=== PATIENT | female | born 1955 | race Caucasian/White ===

== ENCOUNTER 2019-01-10 17:11 | Outpatient (REF) | payer BC, SELFPAY ==
[2019-01-10 17:03] LABS: Bilirubin Negative (Negative); Blood Small (Negative); Clarity Cloudy (Clear); Glucose Negative (Negative); Ketones Negative (Negative); Leukocyte Esterase Large (Negative); Nitrite Negative (Negative); Specific Gravity 1.015 (1.005-1.025); Urobilinogen 0.2 EU/dL (Up TO 0.2)
[2019-01-10 17:53] LABS: WBC >50 HPF (0-5)
[2019-01-10 17:54] LABS: Bacteria Few HPF (Negative); C & S Indicated? Yes; Casts Negative LPF (Negative); Crystals Negative HPF (Negative); Epithelial Cells Many HPF (Negative); Mucus Negative (Negative); Other Cells Few Renal (Negative)
== END 2019-01-10 17:31 ==
LOC: LBN 17:11
PROVIDERS: PCP Family Medicine; Visit Provider Family Medicine
DX: N76.0 Acute vaginitis (principal); R35.0 Frequency of micturition
CPT/HCPCS: 87077; 81003; 81015; 87086; 87186; 87480; 87510; 87660

== ENCOUNTER 2020-04-17 09:41 | Outpatient (CLI) | payer BC, SELFPAY ==
[2020-04-20 14:06] LABS: Patient Race White; SARS-CoV-2 RNA Undetected (Undetected); SARS-CoV-2 Specimen Source Nasal
== END 2020-04-17 10:01 ==
PROVIDERS: PCP Family Medicine; Visit Provider Family Medicine
DX: Z11.59 Encounter for screening for other viral diseases (principal)
CPT/HCPCS: U0003

== ENCOUNTER 2020-05-10 02:44 | Outpatient (CLI) | payer BC, SELFPAY ==
[2020-05-13 12:18] LABS: COVID-19 RT-PCR Result NEGATIVE (Negative)
== END 2020-05-10 03:04 ==
PROVIDERS: PCP Family Medicine; Visit Provider Family Medicine
DX: Z11.59 Encounter for screening for other viral diseases (principal)
CPT/HCPCS: U0003

== ENCOUNTER 2020-07-05 08:29 | Outpatient (CLI) | payer BC, SELFPAY ==
[2020-07-06 11:44] LABS: COVID-19 RT-PCR UVMMC Result Negative (Negative)
== END 2020-07-05 08:30 | disposition home or self-care (01) ==
LOC: LBO 08:29
PROVIDERS: PCP Family Medicine; Visit Provider Family Medicine
DX: Z20.822 Contact with and (suspected) exposure to COVID-19 (principal)
CPT/HCPCS: U0003

== ENCOUNTER 2022-04-21 04:05 | Outpatient (CLI) | payer MEDICARE, BC, SELFPAY ==
[2022-04-21 12:17] LABS: HCT 43.1 % (36.0-46.0); HGB 14.6 g/dL (11.2-15.7); MCH 31.3 pg (27.0-33.0); MCHC 33.9 % (32.0-36.0); MCV 93 fL (80-95); MPV 11.2 fL (8.0-11.0); Platelet Count 249 10^3/uL (130-400); RBC 4.66 10^6/uL (3.93-5.22); RDW 12.6 % (11.7-14.6); WBC 5.02 10^3/uL (4.4-10.8)
[2022-04-21 12:46] LABS: Iron 122 ug/dL (50-170)
[2022-04-21 13:23] LABS: ALT 21 U/L (14-59); AST 18 U/L (15-37); Albumin 3.8 g/dL (3.4-5.0); Alkaline Phosphatase 63 U/L (46-116); Anion Gap 6.2 mmol/L (3-11); BUN 17 mg/dL (7-18); Bilirubin, Total 0.8 mg/dL (0.2-1.0); CO2 30.8 mmol/L (21.0-32.0); CREATININE 0.7 mg/dL (0.55-1.02); Calculated LDL 97 mg/dL (<100); Chloride 101 mmol/L (98-107); Cholesterol 211 mg/dL (<200); Estimated GFR 95.92 (mL/min/1.73m2); Ferritin 88 ng/mL (8-252); Glucose 85 mg/dL (74-106); HDL Cholesterol 106 mg/dL (40-60); Potassium 3.8 mmol/L (3.5-5.1); Sodium 138 mmol/L (136-145); TSH (W/Ref FT4) 0.66 uIU/mL (0.36-3.74); Total Protein 7.5 g/dL (6.4-8.2); Triglyceride 42 mg/dL (<150)
== END 2022-04-21 04:06 | disposition home or self-care (01) ==
LOC: LOS 04:05
PROVIDERS: PCP Family Medicine; Visit Provider Family Medicine
DX: Z00.00 Encounter for general adult medical examination without abnormal findings (principal); D64.9 Anemia, unspecified; F41.8 Other specified anxiety disorders; Z79.899 Other long term (current) drug therapy
CPT/HCPCS: 36415; 80053; 80061; 85027; 82728; 83540; 84443

== ENCOUNTER 2022-06-30 02:12 | Outpatient (CLI) | payer MEDICARE, BC, SELFPAY ==
--- NOTE | 2022-06-30 06:45 | DI.DEXA_ITS ---
Exam(s) XR DEXA BONE DENSITY W/WO MARIA ISABEL EXAM: XR DEXA BONE DENSITY W/WO MARIA ISABEL CLINICAL HISTORY: osteoporosis, m81.0 TECHNIQUE: Routine DEXA evaluation of the lumbar spine, hip, or forearm. COMPARISON: No exams were available for comparison FINDINGS: Performed on a Hologic unit. Lateral image: No compression fracture evident. Lumbar Spine total T-score: -0.3 Hip total T-score:-0.7 Independent reading at the level of the femoral neck yields T-score of -1.3 Forearm total T-score: -1.3 IMPRESSION: Bone mineral density measures in the osteopenia range. Fracture risk is moderate. Note: Any spine fracture indicates 5x risk for subsequent spine fracture and 2x risk for subsequent h ip fracture. World Health Organization criteria for BMD interpretation classify patients: Normal...... T- Score at or above -1.0 Osteopenic... T- Score between -1.0 and -2.5 Osteoporosis... T-Score at or below -2.5
== END 2022-06-30 02:32 ==
LOC: DI 02:12
PROVIDERS: PCP Family Medicine; Visit Provider Family Medicine
DX: M85.88 Other specified disorders of bone density and structure, other site (principal)
CPT/HCPCS: 77080

== ENCOUNTER 2022-12-30 14:17 | Outpatient (REF) | payer MEDICARE, BC, SELFPAY ==
[2022-12-30 14:16] LABS: Clarity Sl Cloudy (Clear); Glucose Color Interference mg/dL (Negative); Ketones Color Interference mg/dL (Negative); Leukocyte Esterase Color Interference (Negative); Nitrite Color Interference (Negative); Specific Gravity 1.015 (1.005-1.025); Urobilinogen Color Interference mg/dL (Up to 0.2)
[2022-12-30 14:17] LABS: Bacteria Negative HPF (Negative); Bilirubin Color Interference (Negative); Blood Color Interference (Negative); C & S Indicated? No; Casts 0-2 Hyaline LPF (Negative); Crystals Negative HPF (Negative); Epithelial Cells Rare HPF (Negative); Mucus Trace (Negative); RBC 20-50 HPF (0-2); WBC 0-2 HPF (0-5)
== END 2022-12-30 14:18 | disposition home or self-care (01) ==
LOC: LBN 14:17
PROVIDERS: PCP Family Medicine; Visit Provider Family Medicine
DX: R30.0 Dysuria (principal); R31.9 Hematuria, unspecified
CPT/HCPCS: 81003; 81015

== ENCOUNTER 2023-08-04 03:53 | Outpatient (CLI) | payer MEDICARE, BC, SELFPAY ==
[2023-08-04 12:10] LABS: HCT 39.8 % (36.0-46.0); HGB 13.4 g/dL (11.2-15.7); MCH 31.1 pg (27.0-33.0); MCHC 33.7 % (32.0-36.0); MCV 92 fL (80-95); Platelet Count 247 10^3/uL (130-400); RBC 4.31 10^6/uL (3.93-5.22); RDW 13.1 % (11.7-14.6); RDW-SD 44.9 fL; WBC 5.68 10^3/uL (4.4-10.8)
[2023-08-04 12:49] LABS: ALT 20 U/L (14-59); AST 20 U/L (15-37); Albumin 3.6 g/dL (3.4-5.0); Alkaline Phosphatase 53 U/L (46-116); Anion Gap 4.6 mmol/L (3-11); BUN 21 mg/dL (7-18); Bilirubin, Total 0.9 mg/dL (0.2-1.0); CO2 32.4 mmol/L (21.0-32.0); CREATININE 0.8 mg/dL (0.55-1.02); Calcium 8.7 mg/dL (8.5-10.1); Calculated LDL 91 mg/dL (<100); Chloride 104 mmol/L (98-107); Cholesterol 197 mg/dL (<200); Estimated GFR 81.21 (mL/min/1.73m2); Glucose 89 mg/dL (74-106); HDL Cholesterol 100 mg/dL (40-60); Potassium 3.9 mmol/L (3.5-5.1); Sodium 141 mmol/L (136-145); TSH (W/Ref FT4) 0.62 uIU/mL (0.36-3.74); Total Protein 6.9 g/dL (6.4-8.2); Triglyceride 31 mg/dL (<150)
== END 2023-08-04 03:54 | disposition home or self-care (01) ==
LOC: LOS 03:53
PROVIDERS: PCP Family Medicine; Visit Provider Family Medicine
DX: E78.5 Hyperlipidemia, unspecified (principal); E03.9 Hypothyroidism, unspecified; I10 Essential (primary) hypertension; R53.83 Other fatigue
CPT/HCPCS: 36415; 80053; 80061; 85027; 84443

== ENCOUNTER 2023-09-20 16:03 | Outpatient (REF) | payer MEDICARE, BC, SELFPAY ==
[2023-09-20 10:44] LABS: Bilirubin Negative (Negative); Blood Negative (Negative); Clarity Clear (Clear); Glucose Negative (Negative); Ketones Negative (Negative); Leukocyte Esterase Negative (Negative); Nitrite Negative (Negative); Specific Gravity 1.015 (1.005-1.025); Urobilinogen 0.2 mg/dL (Up to 0.2); pH 8.5 (5-8)
== END 2023-09-20 16:04 | disposition home or self-care (01) ==
LOC: LBN 16:03
PROVIDERS: PCP Family Medicine; Visit Provider Family Medicine
DX: R31.9 Hematuria, unspecified (principal)
CPT/HCPCS: 81003

== ENCOUNTER 2024-05-19 00:33 | Outpatient (CLI) | payer MEDICARE, BC, SELFPAY ==
--- OUTSIDE RECORDS SUMMARY | 2024-05-19 00:34 | XMS_ITS | Encounter Summary ---
Author Organization [facility] [place] [address] Care Team Providers Care Slasher Hand Name Role Phone Gwen Stanford MD Primary Care Provider [phone] Encounter Details Date Type Department Care Team (Latest Contact Info) Description 04/13/2024 Travel Social History Tobacco Use Types Packs/Day Years Used Date Smoking Tobacco: Former Cigarettes 1 06/24/1975 - 04/23/1996 Smokeless Tobacco: Never Alcohol Use Standard Drinks/Week Comments Yes 7 (1 standard drink = 0.6 oz pur e alcohol) Sex and Gender Information Value Date Recorded Sex Assigned at Not on file Gender Identity Not on file Sexual Orientation Not on file documented as of this encounter Plan of Treatment Upcoming Encounters Date Type Department Care Team (Late st Contact Info) Description 06/29/2024 1:40 PM EST Appointment Mammography/[place] [address] Gwen Stanford MD [address] [place] [address] [address] [facility] 1 [place], [place] [address] 09/11/2024 10:00 AM EDT Office Visit Dermatology at [facility] [address] [place] [address] Su Rosas MD [facility] DR ANTONINA JO[place] [address] documented as of this encounter Visit Diagnoses Not on filedocumented in this encounter Care Teams Slasher Hand Relationship Specialty Start Date End Date Gwen Stanford MD [address] [place] [address] PCP - General 04/15/10 documented as of this encounter
--- OUTSIDE RECORDS SUMMARY | 2024-05-19 00:34 | XMS_ITS | Encounter Summary ---
Author Organization [facility] Address [facility] [place] [address] Care Team Providers Care Cashier Payments Received Name Role Phone Gwen Stanofrd MD Primary Care Provider [phone] Encounter Details Date Type Department Care Team (Late st Contact Info) Description 04/13/2024 9:30 AM EST Office Visit Dermatology at [facility] [address] [place] [address] Su Rosas MD [facility] DR ANTONINA [place] [address] Encounter for cosmetic procedure Social History Tobacco Use Types Packs/Day Years [...] on file documented as of this encounter Progress Notes * Su Rosas MD - 04/13/2024 9:30 AM EST Images from the original note were not included. Department of Dermatology Cosmetic Dermatology Provider: Su Rosas MD Resident MD or Student: N/A News Producer: Nichole Gould CMA COSMETIC TREATMENT VISIT: Patient's preferred name: Lourdes Preferred contact method: [x]Phone [x]myD-H []Letter Detailed phone message OK?: Yes Medical History: HSV? : N , lactating or trying to conceive?: N Social History: Occupation: Hobbies: Other: HPI Lourdes Castro is a 69 y.o. female. Here for Vbeam Questions or concerns for today? N Medications: Reviewed in eD-H Allergies: Reviewed in eD-H TREATMENT MAP(S): * DIAGNOSIS/ASSESSMENT: # Chemoprevention/correction: Emphasized value of retinoid-based skin care system to amplify and maintain benefits of any anti aging plan/procedures. -special considerations: [employer] Azelaic acid, metronidazole and ivermectin prescribed by Suzanne -retinoid: TBD date started: -ZO skincare regimen: regimen or products: reviewed by: date: -instructions in AVS dated, 08/17/2022 by AP -discussed importance of meticulous sun protection #. Neurotoxin/Neuromodulator: - See treatment map above. - Patient's primary area of concern: Glabella - Special considerations for this pt: does not want to transform her look - will stick with a targeted treatment - Quote for neurotoxin: plan for Xeomin - Units Discussed?: Xeomin: 40 units for $550.00, 50 units for $600.00, 60 units for $750.00 # Facial Volume Loss: - See procedure map - Pt's primary area of concern: mid facial volume loss - Other areas of concern: discussed treating temples - Special considerations: does not want to transform her look, wants to have a subtle treatment - Future filler planned?: Volluma 1cc x 2 to temples Quote for filler plans: $1,600 - Future filler planned?: brief discussion of filler to mid facial , product not specified Quote for filler plans: $not quoted # Skin laxity - body / arms - Patient taking estrogen - Discussed inconclusive data on collagen supplements - Brief discussion of bio-stimulation filler, no quotes given - Recommend Amlactin Rapid Relief or CeraVe SA lotion # Vbeam / IPL treatments for photodamage located on face - Number of treatments recommeded: 3+ maintenance - Special considerations for this pt: has rosacea, managed by general derm - Area of main concern: cheeks - HSV prophylaxis needed?: no If yes, does pt have rx?: no date verified: 12/31/2021 - tiwari quoted: $450 per treatment of the full face - See laser log for treatment dates and details -Additional notes: Plan to start with Vbeam, then will alternate with IPL when sun exposure is minimal # Vbeam treatments for spider veins located on thighs - Number of treatments recommeded: 3+ - Special considerations for this pt: discussed pt will have significant bruising, plan for fall / winter time when able to hide bruising. - Area of main concern: left thigh - HSV prophylaxis needed?: no If yes, does pt have rx?: no date verified: 12/31/2021 - tiwari quoted: $250 per treatment 15 min - See laser log for treatment dates and details -Additional notes: See sclero assessment/plan # Unwanted leg veins: Venulectasias, reticlar veins and spider veins located left thigh Main area of concern: left thigh - See Sclerotherapy Treatment Log - Special considerations for this patient: Discussed combination treatment with Vbeam - Consent signed?: (date) - Tiwari quoted: $250 for each 15 min procedure. 2-3+ sessions recommended, each spaced 12 weeks apart - Sclerotherapy FAQs and Before and After instructions given - Reviewed the risks, alternatives and nature of the procedure. This is an elective, cosmetic procedure. Importance and benefit of compression stockings was emphasized. # Chemical Peels for rosacea located on face - Appropriate peels for this patient include: MA Peel - Number of treatments recommeded: 1 peel every other month - Special considerations for this pt: - Area of main concern: cheeks - Before and after instructions given (in AVS): Yes (name of handout) - HSV prophylaxis needed?: N If yes, does pt have rx?: N date verified: 11/05/2022 - tiwari quoted: $150 - See peel log for treatment dates and details -Additional notes: # Photos - see media 12/31/2021 for pics taken pre vbeam legs, vbeam face, xeomin - 08/17/2022 for baseline photos prior to Vbeam # Photography: taken post 2 treatments of vBeam - Date: 11/05/2022 View: whole face Initials: HL & RL PROCEDURE/TREATMENT LOG(S): Date: 08/17/2022 Laser: Vbeam Area: full face Spot: 10mm Energy(J): 8.50 Pulse Duration: 10ms Pulse #: 408 Paid: $350 deduct consultation Tx By:AP Notes: first treatment, patient seen in conjunction with provider, Su Rosas MD. Provider determined treatment settings. Date: 09/21/2022 Laser: VBeam Area: face Spot: 10mm Energy(J): 8.50 Pulse Duration: 10ms Pulse #: ~350 Paid: $350 Tx By: AP Notes: Provider, Su Rosas MD, authorized treatment settings. Indirect, onsite supervision of procedure. Date: 11/05/2022 Laser: Vbeam Area: full face Spot: 10mm Energy(J): 8.50 Pulse Duration: 10ms Pulse #: 257 Paid: $350 Tx By:RL Notes: Patient is aware to plan for a continuation of MA peels Date: 10/13/2023 Laser: VBeam Area: full face Spot: 10mm Energy(J): 8.5 Pulse Duration: 10ms Pulse #: 369 Paid: $450 Tx By:Su Rosas MD Laser Log: Laser Area Spot (mm) Energy (J) Pulse Duration or Density (spots/cm2) # of Pulses Tx By Paid Notes 04/13/24 Vbeam Full face 10mm 85 10ms RL $450 Tolerated well COSMETIC COST TODAY: $450 Vbeam full face Return To Clinic: August 2024 Vbeam full face $450 []Note routed to executive secretary social welfare []Recall placed in scheduling system [x]Appointment scheduled at checkout Treatment delivered by Su Rosas MD I, Nichole Gould CMA has performed the documentation for this encounter in the presence of and acting as a scribe for Su Rosas MD. I performed the above scribed service and agree with the accuracy of the documentation in this encounter, Su Rosas MD . Su Rosas MD Department of Dermatology documented in this encounter Plan of Treatment Upcoming Encounters Date Type Department Care Team (Late st Contact Info) Description 06/29/2024 1:40 PM EST Appointment Mammography/[place] [address] Gwen Stanford MD [address] [place] [address] 09/11/2024 10:00 AM EDT Office Visit Dermatology at [facility] [address] [place] [phone] Su Rosas MD [facility] DR ANTONINA [place] [address] documented as of this encounter Visit Diagnoses Diagnosis Encounter for cosmetic procedure documented in this encounter Care Teams Cashier Payments Received Relationship Specialty Start Date End Date Gwen Stanford MD [address] [place] [address] PCP - General 04/15/10 documented as of this encounter
--- OUTSIDE RECORDS SUMMARY | 2024-05-19 00:34 | XMS_ITS | Clinical Summary ---
Author Organization [facility] Address [facility] [place] [address] Care Team Providers Care Card Assembler Name Role Phone Gwen Stanford MD Primary Care Provider [phone] Allergies Active Allergy Reactions Criticality Noted Date Comments Codeine Anxiety High 10/19/2012 Penicillins Anaphylaxis High Prochlorperazine Other (See Comments) 7 [place] sedated Medications Medication Sig Dispensed Refills Start Date End Date Status clonAZEpam (KLONOPIN) 1 mg tablet 1MG = 1 Tablet(s), PO, Once daily,PRN 01/12/2006 Active acetaminophen (TYLENOL) 325 mg Tablet Take 2 tablets by mouth every 6 hours. 30 tablet 1 05/06/2016 Active Additional Information Patient taking differently:650 mg OralEVERY 6 HOURS PRN, Reported on 08/18/2022 estradioL (Estrace) 1 mg tablet Take 2 mg by mouth daily. Active ibuprofen (Advil) 200 mg tablet Take 600 mg by mouth every 8 hours as needed for Pain. Active tretinoin (Retin-A) 0.05 % CreamIndications:So lar aging of skin Apply topically nightly. 45 g 11 09/21/2022 Active BIOTIN ORAL Take by mouth. Active Active Problems Problem Noted Date Diagnosed Date Post-operative state 05/27/2016 Former smoker 04/23/2016 Postmenopausal HRT (hormone replacement therapy) 04/23/2016 Trigger thumb of left hand 10/19/2012 Tendinitis Resolved Problems Problem Noted Date Diagnosed Date Resolved Date Fibroid uterus 05/05/2016 05/28/2016 Abnormal uterine bleeding (AUB) 04/23/2016 05/28/2016 Uterine mass 04/23/2016 05/28/2016 Encounters Date Type Department Care Team Description 04/13/2024 9:30 AM EST Office Visit Dermatology at [address] [place] [address] Su Rosas MD Encounter for cosmetic procedure 04/13/2024 Travel from Last 3 Months Immunizations Name Administration Dates Next Due Td Adult (not absorbed) 09/18/2004 Family History Medical History Relation Comments Breast Cancer Neg Hx Social History Tobacco Use Types Packs/Day Years Used Date Smoking Tobacco: Former Cigarettes 1 06/24/1975 - 04/23/1996 Smokeless Tobacco: Never Tobacco Cessation:Counseling Given: Not Answered Alcohol Use Standard Drinks/Week Comments Yes 7 (1 standard drink = 0.6 oz pur e alcohol) Sex and Gender Information Value Date Recorded Sex Assigned at Not on file Gender Identity Not on file Sexual Orientation Not on file Last Filed Vital Signs Vital Sign Reading Time Taken Comments Blood Pressure 118/61 08/20/2022 8:34 AM EDT Pulse 65 08/20/2022 8:34 AM EDT Temperature 35.6 ??C (96 ??F) 08/20/2022 8:34 AM EDT Respiratory Rate 16 08/18/2022 2:36 PM EDT Oxygen Saturation 100% 08/20/2022 8:34 AM EDT Inhaled Oxygen Concentration - - Weight 58.1 kg (128 lb) 08/20/2022 8:34 AM EDT Height 153.7 cm (5' 0.5) 08/18/2022 2:36 PM EDT Body Mass Index 24.59 08/18/2022 2:36 PM EDT Plan of Treatment Upcoming Encounters Date Type Department Care Team (Late st Contact Info) Description 06/29/2024 1:40 PM EST Appointment Mammography/[place] [address] Gwen Stanford MD [facility] [address] [place] [address] 09/11/2024 10:00 AM EDT Office Visit Dermatology at [address] [place] [address] Su Rosas MD [facility] [address]TON[place] [address] Health Maintenance Due Date Last Done Comments CT Colonography 1957 FIT DNA 1957 FIT 1957 Sigmoidoscopy 1955 Hepatitis C Screening 1975 Breast Cancer Share Decision Needed 1997 Tetanus/Diphtheria/Pertussis Vaccines (1 - Tdap) 09/19/2004 09/18/2004 Pneumoccocal Vaccine: 65+ (1 of 1 - PCV) 2007 Zoster vaccine (1 of 2) 2007 Advance Directive 02/07/2012 Bone Density Scan 2022 Colonoscopy 12/20/2023 12/19/2013, 12/19/2013 Colorectal Cancer Screening 12/20/2023 Sigmoidoscopy (10 year) with FIT yearly 12/20/2023 12/19/2013, 12/19/2013 Covid-19 Vaccine (1 - 2023-2 5 season) 2024 Influenza (Flu) vaccine (1 o f 1 - Influenza standard series) 01/23/2024 Breast Cancer screening 03/03/2025 03/03/20 23, 12/31/2021, 12/03/2020, Additional history exists Procedures Procedure Name Priority Date/Time Associated Diagnosis Comments MAMMO SCREENING CAD AND CEDRICK BILATERAL Routine 03/03/2023 10:21 AM EDT Encounter for screening mammogram for breast cancer COLONOSCOPY Routine 12/19/2013 9:39 AM EDT from Last 3 Months or Most Recently Relevant to Health Maintenance Results * Mammo Screening Cad and Cedrick Bilateral (03/03/2023 10:21 AM EDT) Anatomical Region Laterality Modality Breast Bilateral Mammography Impressions 03/03/2023 1:06 PM EDT No mammographic evidence of malignancy, Routine annual screening mammography is recommended. FINAL ASSESSMENT: BI-RADS Category 2: Benign Findings * ??Regular screening mammograms starting at age 40 reduces the risk of from breast cancer. * ??Yearly screening provides the most benefit. Women should discuss with their provider their preferred breast cancer screening schedule. * ??Women should report any breast changes to a health care provider right away. * ??Some women, because of their family history, a genetic tendency, or other factors, should be screened with annual breast MRI as well as with mammograms. Thank you for letting us participate in the care of this patient. ??If you are a health care provider and have any questions regarding this report, please contact the number below. ??For patients who have questions please contact the health youth care worker that requested your imaging first. ? Narrative 03/03/2023 1:06 PM EDT EXAMINATION: MAMMO SCREENING CAD AND CEDRICK BILATERAL REASON FOR EXAM: Screening TECHNIQUE: CC and MLO views were obtained of BOTH breasts. 2D and 3D tomosynthesis images were obtained. Computer aided detection was used. COMPARISON: Comparison was made to the prior relevant examinations. BREAST DENSITY: The breast tissue is extremely dense, which lowers the sensitivity of mammography. FINDINGS: Stable bilateral calcifications. There are no suspicious microcalcifications, masses, or areas of distortion. Stable appearance. Gwen Stanford MD IMG MAMMO ORDERABLES * COLONOSCOPY (12/19/2013 9:39 AM EDT) [facility] COLONOSCOPY [facility] Endoscopy Patient Name: Lourdes Castro ? Procedure Date: 12/19/2013 9:39 AM ? Date of : 1955 ? Age: 58 ? Order #: [id number] ? Procedure: ? Colonoscopy Indications: ? Screening for colorectal malignant ? neoplasm Providers: ? Artur Treviño MD, Janette Ortiz ? MARY Carrasco, Debora Dietrich, ? Ship Laborer Referring MD: ?Gwen Stanford MD Medicines: ? Midazolam 4.5 mg IV, Fentanyl 200 ? micrograms IV Complications: ? No immediate complications. Procedure: ? Pre-Anesthesia Assessment: ? - ASA Grade Assessment: I - A normal, ? healthy patient. ? The procedure, indications, benefits, ? risks and alternatives were explained ? to the patient. Specifically ? discussed were potential ? complications including, but not ? limited to, bleeding, perforation, ? infection, missing a cancer, and ? adverse medication reactions. The ? patient was placed in the left ? lateral decubitus position, and a ? digital rectal exam was performed. ? The Colonoscope was inserted in the ? anus and under direct visualization, ? advanced to the terminal ileum. ? Careful inspection was made as the ? colonoscope was withdrawn. The ? colonoscopy was performed without ? difficulty. The patient tolerated the ? procedure well. The quality of the ? bowel preparation was excellent. ? Scope withdrawal time was 14 minutes. ? Findings: ? A few small and large-mouthed diverticula were found ? in the sigmoid colon and in the descending colon. ? The terminal ileum appeared normal. ? A sessile polyp was found in the recto-sigmoid colon. ? The polyp was 2 mm in size. The polyp was removed ? with a cold biopsy forceps. Resection and retrieval ? were complete. ? Internal hemorrhoids were found during retroflexion ? and were small. ? Impression: ?- Diverticulosis in the sigmoid colon ? and in the descending colon. ? - The examined portion of the ileum ? was normal. ? - One 2 mm polyp at the recto-sigmoid ? colon. Resected and retrieved. ? - Internal hemorrhoids. Recommendation: ?- Await pathology results. ? _ Artur Treviño MD 12/19/2013 10:40 AM This report has been signed electronically. Number of Addenda: 0 Note Initiated On: 12/19/2013 9:39 AM PROVATION 12/19/2013 9:39 AM EDT Gwen Stanford MD GENERAL SURGICAL ORD ERABLES PROVATION from Last 3 Months or Most Recently Relevant to Health Maintenance Advance Directives * Full Code (Latest Code Status on File) Date Activated Date Inactivated Comments 05/05/2016 2:34 PM 05/06/2016 1:26 PM Question Answer Comments Does patient have capacity to make decision: Yes * Full Code Date Activated Date Inactivated Comments 05/05/2016 10:49 AM 05/05/2016 2:34 PM Question Answer Comments Does patient have capacity to make decision: Yes Care Teams Card Assembler Relationship Specialty Start Date End Date Gwen Stanford MD [address] [place] [address] [address] [facility] 1 [place] [address] PCP - General 04/15/10
--- OUTSIDE RECORDS SUMMARY | 2024-05-19 00:35 | XMS_ITS | Encounter Summary ---
Author Organization [facility] [place] [address] Care Team Providers Care Cold Working Inspector Name Role Phone Gwen Stanford MD Primary Care Provider [phone] Encounter Details Date Type Department Care Team (Latest Contact Info) Description 09/21/2022 Travel Social History Tobacco Use Types Packs/Day [...] 06/29/2024 1:40 PM EST Appointment Mammography[place] [address] Gwen Stanford MD [address] [place] [address] [address] [facility] 1 [place], [place] [address] 09/11/2024 10:00 AM EDT Office Visit Dermatology at [facility] [address] [place] [phone] Su Rosas MD [facility] [address]TON[place] [address] documented as of this encounter Visit Diagnoses Not on filedocumented in this encounter Care Teams Cold Working Inspector Relationship Specialty Start Date End Date Gwen Stanford MD [address] [place] [address] PCP - General 04/15/10 documented as of this encounter
--- OUTSIDE RECORDS SUMMARY | 2024-05-19 00:35 | XMS_ITS | Encounter Summary ---
Author Organization [facility] [place] [address] Care Team Providers Care Alternative Education Teacher Name Role Phone Gwen Stanford MD Primary Care Provider [phone] Encounter Details Date Type Department Care Team (Latest Contact Info) Description 08/17/2022 Travel Social History Tobacco Use Types Packs/Day [...] 06/29/2024 1:40 PM EST Appointment Mammography/[place] [address] Gwen Stanford MD [address] [place] [address] [address] [facility] 1 [place], [place] [address] 09/11/2024 10:00 AM EDT Office Visit Dermatology at [facility] [address] [place] [address] Su Rosas MD [facility] DR ANTONINA JOAQU[place] [address] documented as of this encounter Visit Diagnoses Not on filedocumented in this encounter Care Teams Alternative Education Teacher Relationship Specialty Start Date End Date Gwen Stanford MD [address] [place] [address] PCP - General 04/15/10 documented as of this encounter
--- OUTSIDE RECORDS SUMMARY | 2024-05-19 00:35 | XMS_ITS | Encounter Summary ---
Author Organization [facility] [place] [address] Care Team Providers Care Hydraulic Technician Name Role Phone Gwen Stanford MD Primary Care Provider [phone] Encounter Details Date Type Department Care Team (Latest Contact Info) Description 08/20/2022 Travel Social History Tobacco Use Types Packs/Day [...] 06/29/2024 1:40 PM EST Appointment Mammography[place] [address] Gwen Stanford MD [address] [place] [address] [address] [facility] 1 [place], [place] [address] 09/11/2024 10:00 AM EDT Office Visit Dermatology at [facility] [address] [place] [phone] Su Rosas MD [facility] [address] [place]TON[place] [address] documented as of this encounter Visit Diagnoses Not on filedocumented in this encounter Care Teams Hydraulic Technician Relationship Specialty Start Date End Date Gwen Stanford MD [address] [place] [address] PCP - General 04/15/10 documented as of this encounter
--- OUTSIDE RECORDS SUMMARY | 2024-05-19 00:35 | XMS_ITS | Encounter Summary ---
[place] [address] Care Team Providers Care Environmental Change Analyst Name Role Phone Gwen Stanford MD Primary Care Provider Reason for Referral * - Closed Specialty Diagnoses / Procedures Referred By Letitia gtz Referred To Contact Diagnoses Encounter for screening mammogram for breast cancer Procedures Mammo Screening Cad and Cedrick Bilateral Gwen Stanford MD [facility] [address] [place] [address] [place] [place] [address] Referral ID Status Reason Start Date Expiration Date Visits Re quested Visits Authorized [id number] Closed 10/16/2020 10/16/2021 1 1 Reason for Visit * - Closed Specialty Diagnoses / Procedures Referred By Letitia gtz Referred To Contact Diagnoses Encounter for screening mammogram for breast cancer Procedures Mammo Screening Cad and Cedrick Bilateral Gwen Stanford MD [address] [place] [address] [facility] [place] [address] Referral ID Status Reason Start Date Expiration Date Visits Re quested Visits Authorized [id number] Closed 10/16/2020 10/16/2021 1 1 Encounter Details Date Type Department Care Team (Late st Contact Info) Description 12/03/2020 10:27 AM EDT - 12/03/2020 11:59 PM EDT Hospital Encounter Mammography/[place] [address] Gwen Stanford MD [address] [place] [address] Encounter for screening mammogram for breast cancer Discharge Disposition: Home Social History Tobacco Use Types Packs/Day Years [...] on file documented as of this encounter Medications at Time of Discharge Medication Sig Dispensed Refills Start Date End Date acetaminophen (TYLENOL) 325 mg Tablet Take 2 tablets by mouth every 6 hours. 30 tablet 1 05/06/2016 clonAZEpam (KLONOPIN) 1 mg tablet 1MG = 1 Tablet(s), PO, Once daily,PRN 01/12/2006 senna-docusate (PERICOLACE) 8.6-50 mg Tablet Take 2 tablets by mouth 2 times daily. 60 tablet 11 05/06/2016 08/18/2022 glucosamine sulfate 500 mg Tablet Take by mouth. 08/18/2022 calcium carbonate 648 mg calcium Tablet Take 600 mg by mouth 3 times daily (with meals). 08/18/2022 cholecalciferol, Vitamin D3, (CHOLECALCIFEROL, VITAMIN D3,) 2,000 unit Capsule Take by mouth. 08/18/2022 biotin 300 mcg Tablet Take 500 mcg by mouth. 08/18/2022 documented as of this encounter Plan of Treatment Upcoming Encounters Date Type Department Care Team (Late st Contact Info) Description 06/29/2024 1:40 PM EST Appointment Mammography/[place] [address] Gwen Stanford MD [address] [place] [address] 09/11/2024 10:00 AM EDT Office Visit Dermatology at [facility] [address] [place] [phone] Su Rosas MD [facility] DR ANTONINA [place] [address] documented as of this encounter Procedures Procedure Name Priority Date/Time Associated Diagnosis Comments MAMMO SCREENING CAD AND CEDRICK BILATERAL Routine 12/03/2020 10:44 AM EDT Encounter for screening mammogram for breast cancer documented in this encounter Results * Mammo Screening Cad and Cedrick Bilateral (12/03/2020 10:44 AM EDT) Anatomical Region Laterality Modality Breast Bilateral Mammography Narrative 12/03/2020 11:52 AM EDT BILATERAL MAMMOGRAPHY REASON FOR EXAM: Screening TECHNIQUE: CC and MLO views were obtained of each breast using standard 2-D mammography as well as 3-D tomosynthesis. Computer aided detection was used. This is compared with prior images. FINDINGS: ??The breasts are heterogeneously dense, which may obscure small masses. There are no suspicious microcalcifications, masses, or areas of distortion. The pattern is stable. CONCLUSION: No mammographic evidence of malignancy. RECOMMENDATION: Regular screening mammograms starting between age 40 and 50 reduces the risk of from breast cancer. All screening tests have both risks and benefits. These risks and benefits should be assessed for each individual patient through discussion with their provider to determine their preferred breast cancer screening schedule. Women should report any breast changes to a health care provider right away. Some women, because of their family history, a genetic tendency, or other factors, should be screened with annual breast MRI as well as with mammograms. (The number of women who fall into this category is very small). Patients and health care providers should discuss each patient? s history to decide if earlier screening and/or breast MRI are appropriate. Screening should continue as long as a woman is in good health and is expected to live 10 years or longer. Screening mammography may not detect 10-15% of breast cancers. A result letter has been sent to this patient by the [facility]. BIRADS CATEGORY 1: NEGATIVE Electronically signed by: ROXANNE NELSON MD Gwen Stanford MD IMG MAMMO ORDERABLES documented in this encounter Visit Diagnoses Diagnosis Encounter for screening mammogram for breast cancer documented in this encounter Care Teams Environmental Change Analyst Relationship Specialty Start Date End Date Gwen Stanford MD [address] [place] [address] PCP - General 04/15/10 documented as of this encounter
--- OUTSIDE RECORDS SUMMARY | 2024-05-19 00:35 | XMS_ITS | Encounter Summary ---
[place] [address] Care Team Providers Care Plywood Layup Line Core Layer Name Role Phone Gwen Stanford MD Primary Care Provider Encounter Details Date Type Department Care Team (Late st Contact Info) Description 03/03/2023 9:55 AM EDT - 03/03/2023 11:59 PM EDT Hospital Encounter Mammography/[place] [phone] Gwen Stanford MD [address] [place], [place] [address] Encounter for screening mammogram for breast cancer [...] Sig Dispensed Refills Start Date End Date tretinoin (Retin-A) 0.05 % CreamIndications:Solar aging of skin Apply topically nightly. 45 g 11 09/21/2022 estradioL (Estrace) 1 mg tablet Take 2 mg by mouth daily. ibuprofen (Advil) 200 mg tablet Take 600 mg by mouth every 8 hours as needed for Pain. acetaminophen (TYLENOL) 325 mg Tablet Take 2 tablets by mouth every 6 hours. 30 tablet 1 05/06/2016 clonAZEpam (KLONOPIN) 1 mg tablet 1MG = 1 Tablet(s), PO, Once daily,PRN 01/12/2006 documented as of this encounter Plan of Treatment Upcoming Encounters Date Type Department Care Team (Late st Contact Info) Description 06/29/2024 1:40 PM EST Appointment Mammography/[place] [address] Gwen Stanford MD [address] [place] [address] 09/11/2024 10:00 AM EDT Office Visit Dermatology at [facility] [address] [place] [address] Su Rosas MD [facility] DR ANTONINA [place] [address] documented as of this encounter Procedures Procedure [...] who have questions please contact the health congregational care pastor that requested your imaging first. ? Narrative [...] appearance. Gwen Stanford MD IMG MAMMO ORDERABLES documented in this encounter Visit Diagnoses Diagnosis Encounter for screening mammogram for breast cancer documented in this encounter Care Teams Plywood Layup Line Core Layer Relationship Specialty Start Date End Date Gwen Stanford MD [address] [place] [address] PCP - General 04/15/10 documented as of this encounter
--- OUTSIDE RECORDS SUMMARY | 2024-05-19 00:35 | XMS_ITS | Encounter Summary ---
Author Organization [facility] Address [facility] [place] [address] Care Team Providers Care Commercial Marketing Specialist Name Role Phone Gwen Stanford MD Primary Care Provider Encounter Details Date Type Department Care Team (Late st Contact Info) Description 12/31/2021 9:45 AM EDT Office Visit Dermatology at [facility] [address] [place] [phone] Su Rosas MD [facility] DR ANTONINA [place] [address] Encounter for cosmetic procedure Social History Tobacco [...] on file documented as of this encounter Patient Instructions * Patient Instructions* [facility] Ch[facility], [facility] - 12/31/2021 9:45 AM EDT Recommended moisturizers: Amlactin Rapid Relief or CeraVe SA lotion NEUROTOXIN BEFORE AND AFTER INSTRUCTIONS $500 per treatment. Treatments are typically performed every 4 months BEFORE: Ten days before your procedure: Avoid medications that increase the chances of bruising. NSAID painrelievers like Aspirin, Advil, Alleve, Motrin and Ibuprofen can thin the blood, so switch to Tylenol (acetaminophen) before your appointment. Stop supplements that can make bruising worse. These include gingko biloba, ginseng, omega-3, Noble???s Wort and vitamin E. 24 hours before your treatment: Think twice about that glass of wine (or any form of alcohol) because it can increase your risk of bruising. Supplements that can reduce bruising: Consider taking Arnica (one tablet the morning of your appointment and every six hours after your injections until you???re bruise-free. The pineapple-based enzyme bromelain can also help. Take 500 mg three times a day for three days after your procedure. Plan for your results to be maximal at 2 weeks. If it is your first time, plan the treatment at least 4 weeks before a big event to allow time for any needed adjustments. Most patients are able to return to work immediately after the procedure and need not make any changes to their social engagements. Be sure you are not . AFTER: Avoid facial massage for 2 hours. Make exaggerated expressions, frequently in the hour immediatly after your procedure. We believe this enhances uptake of the product Avoid yoga, calisthenics (and other activities that put your heart below your head) or intense exercise until one hour after your procedure. If you absolutely have to exercise is not harmful after neurotoxin, it simply may increase the chance of a visible bruise. Do not get that night. *See note Be patient in the first 2 weeks. Asymmetry is not uncommon as the product takes effect (don???t worry, it is rarely noticeable to others). Some patients are concerned about an uneven look in the first week, only to see it balance out completely by day 10-14 in the majority. If it remains uneven or if you are dissatisfied in any way then please call Dr. Rosas??? bank officer at [phone] Rosas a message through [employer] *Note: Your body is very mildly and very briefly exposed to neurotoxin systemically after injection. For this reason, experts recommend that you do not conceive within 24 hours of the procedure. After that brief window, the toxin has a localized effect on the nerve and is not active throughout the body. There are no adverse events associated with this brief systemic effect. Many women get treatedbefore they conceive and enjoy the benefits of Botox for the first part of their until the ??? glow?? kicks in! VBeam FAQs What does the Vbeam treat? The Vbeam laser is ideal for treating flushing, blood vessels and blood vessel growths (rey angiomas) on the face and body. These unwanted conditions are often the result of rosacea or sun exposure but can also just be a normal product of aging. What is a procedure like? Treatments are mildly to moderately uncomfortable. The discomfort occurs each time the laser is pulsed and resolves completely in between pulses. There is no lingering pain with this procedure. We apply protective eye patches during your treatment and blow cold air directly onto your skin in order to dampen the sting of the laser pulses. What can I do to prepare for a treatment? Calm patients are more comfortable! If you are nervous about the procedure you will have a less pleasant experience. Be sure to let us know if you have any unanswered questions. You may want to take 400-600 mg of Ibuprofen 1 hour before the procedure. Are there things I should avoid before or after the procedure? We ask that you avoid sun exposure 2weeks before and after your procedure. This is so important for avoiding discoloration as a side effect of the treatment. Avoid saunas, hot tubs or any form of high heat on the face for 24 hours after your procedure. What are the risks? Vbeam procedures are very safe. Blistering and scarring are nearly unheard of. Bruising, swelling and redness are common but avoidable with cautious settings. Can I do this and go back to work? Some patients, especially those who do focal treatments on the nose and cheeks, can go right back to work. Swelling and redness after the procedure are largely a factor of the severity of redness and size/amount of blood vessels going into the procedure. Typicallythe first treatment causes the most redness and swelling. Most patients do not plan any important social or work encounters for 3 days to be careful. How long will my results last? The duration of the benefit from Vbeam treatments is variable. It depends on the activity of the underlying condition. A patient with active rosacea will need more frequent treatments than a person whose rosacea is inactive or well managed by skincare or prescriptions. Results are likely to last longer in patients who avoid triggers for their facial redness (sunlight, hot beverages, spicy food, red wine, stress, poor sleep). How often will I need a treatment? Most patients receive 1-3 treatments, by 3-4 weeks andthen receive a single, maintenance treatment every 6- 12 months. Many patients need even fewer treatments b/c they are so careful about avoiding triggers and are using effective skin care and sun protection at home. LASER TIWARI QUOTE We discussed Vbeam treatment(s) to your full face. We predict you will need 3 treatments to get a meaningful, long lasting result. Those treatments would ideally be spaced 3-6 weeks apart. After that, we recommend you consider maintenance treatments. The cost is $350 per treatment of the full face. This is not a package tiwari. Maintenance prices would be the same tiwari unless we discuss a new plan. Any quote we give you for a procedure is valid for up to 6 months after your consult. After that, prices are subject to change. If you are unsure about the cost, please ask us to clarify before you undergo your procedure. LASER TIWARI QUOTE We discussed Vbeam treatment(s) to your spider veins on thighs. We predict you will need 2-3+ treatments to get a meaningful, long lasting result. Those treatments would ideally be spaced 3-6 weeks apart. After that, we recommend you consider maintenance treatments. The cost is $250 per treatment. This is not a package tiwari. Maintenance prices would be the same tiwari unless we discuss a new plan. Any quote we give you for a procedure is valid for up to 6 months after your consult. After that, prices are subject to change. If you are unsure about the cost, please ask us to clarify before you undergo your procedure. VBEAM You've made a great choice! The Vbeam procedure is one of the most commonly performed treatments inour office. It is intense, effective and safe. This laser treatment treats redness and blood vessels that detract from a healthy, evenly colored complexion. It also treats the inflammation of rosaceaand acne and can be effective at stimulating collagen growth. Treatments are usually performed as a series. We often suggest 2-5 treatments, performed monthly toobtain substantial improvement. We then advise maintenance treatments every 6-12 months because, whether treating rosacea, sun damage or aging in general, there is always a tendency to re accumulate redness and blood vessels. The best, most long-lasting results are seen in patients who maintain with a good skincare routine that includes excellent sun protection and a retinoid. Discuss this with your provider if you don't have such a regimen. Before Your Vbeam Procedure: Consider taking 400-600 mg Ibuprofen to minimize discomfort during the procedure. Stop all retinols, vitamin C, hydroxy acids 5 days before your treatment. (If on a ZO regimen products to avoid include: C Bright, TE Pads, Exfoliating Spanish, Vitascrub, Cebatrol, Glycogent, Melamix, Tretinoin, Retamax, Brightenex, Brightamax, Growth Factor, Invisapeel.) Check with your doctor if you are unsure. If you plan to receive numbing cream, please be sure to come 30 min before your appointment time and tell the front desk assistant that you were told to do so. Don't plan a major engagement within one week. (Prolonged swelling is very unlikely but better to be safe and allow a week.) Expect redness and swelling for typically 24 hours. After Your Vbeam Procedure: Apply ice kip as needed for comfort. Avoid heat or sun exposure until redness and swelling subside. Swelling can be minimal to severe. If severe, consider sleeping with the head of your bed elevated. Blood vessels and redness may seem worse than they were before the treatment in some areas. This doesn't mean the treatment wasn't effective. Expect improvement to evolve over the following 3 weeks. OK to resume your normal skin care routine when swelling, sensitivity and redness have resolved (typically 24-48 hours). Avoid sun exposure directly to the skin for 1 week after treatment. Questions and/or concerns please call: ???s appointment bank officer For urgent concerns on weekends or off hours please call [facility] main number and ask for the automobile dealer investment professional: or call Dr. Rosas's cell: [phone] documented in this encounter Progress Notes * Su Rosas MD - 12/31/2021 9:45 AM EDT DATE OF SERVICE: 12/31/2021 PROVIDER: Su Rosas MD Lourdes Castro : 1955 PATIENT PREFERENCES: -prefers to be called: Lourdes KHOURY Lourdes Castro is a 66 y.o. year old female. Here for a cosmetic consult to discuss the following: - has rosacea, bothered by redness. Has appt with Dr. [place] today will address medical concerns/rosacea with Dr. [place]wood. - brown spots on face - thin face, creases, notes she isnt necessary wanting a gaitan face but would like to discuss options - spider veins on left thigh - lines for forehead and glabella COSMETIC TREATMENT VISIT -HSV prophylaxis? no -, lactating or trying to conceive?: no ADR: Allergies Allergen Reactions ??? Codeine Anxiety ??? Penicillins Anaphylaxis ??? Prochlorperazine Other (See Comments) [place] sedated MEDS: Current Outpatient Medications Medication Sig Dispense Refill ??? senna-docusate (PERICOLACE) 8.6-50 mg Tablet Take 2 tablets by mouth 2 times daily. (Patient taking differently: Take 1 tablet by mouth 2 times daily.) 60 tablet 11 ??? acetaminophen (TYLENOL) 325 mg Tablet Take 2 tablets by mouth every 6 hours. 30 tablet 1 ??? glucosamine sulfate 500 mg Tablet Take by mouth. ??? calcium carbonate 648 mg calcium Tablet Take 600 mg by mouth 3 times daily (with meals). ??? cholecalciferol, Vitamin D3, (CHOLECALCIFEROL, VITAMIN D3,) 2,000 unit Capsule Take by mouth. ??? biotin 300 mcg Tablet Take 500 mcg by mouth. ??? clonAZEpam (KLONOPIN) 1 mg tablet 1MG = 1 Tablet(s), PO, Once daily,PRN No current facility-administered medications for this visit. EXAMINATION: -New findings: TREATMENT MAPS: * DIAGNOSIS/ASSESSMENT: # Neurotoxin: - see Treatment Map - Pt's primary area of concern: glabella - Special considerations for this pt: does not want to transform her look - will stick with a targeted treatment - Quote for neurotoxin: plan for 40-50 units of Xeomin quoted $400-$500 (likely $500, for balanced result) Botox 50 units $750 Botox 100 units $1250 Xeomin 50 units $500 Xeomin 100 units $700 Xeomin 35 or less units $350 Dysport 100 units $570 - Neurotoxin Before and After instructions given # Facial Volume Loss: - See procedure [...] no date verified: 12/31/2021 - tiwari quoted: $350 per treatment of the full face - [...] benefit of compression stockings was emphasized. # Photos - see media 12/31/2021 for pics taken pre vbeam legs, vbeam face, xeomin PROCEDURE/TREATMENT LOG(S): FOLLOW UP RETURN TO CLINIC: Next available vbeam to full face $350 15 min Next available xeomin 50 units $500 15 min COSMETIC COST TODAY: $150 consult Treatment delivered by Dr. Rosas I am documenting this encounter acting as the scribe for and in the presence of Su Rosas MD,Chin Mc MA I performed the above scribed service and agree with the accuracy of the documentation in this encounter, MD Su Mohr MD Department of Dermatology documented in this encounter Plan of Treatment Upcoming Encounters Date Type Department Care Team (Late st Contact Info) Description 06/29/2024 1:40 PM EST Appointment Mammography/[place] [address] Gwen Stanford MD [facility] [address] [address] 09/11/2024 10:00 AM EDT Office Visit Dermatology at [address] [phone] Su Rosas MD [facility] DR ANTONINA [place] [address] documented as of this encounter Visit Diagnoses Diagnosis Encounter for cosmetic procedure documented in this encounter Care Teams Commercial Marketing Specialist Relationship Specialty Start Date End Date Gwen Stanford MD [address] [place] [address] PCP - General 04/15/10 documented as of this encounter
--- OUTSIDE RECORDS SUMMARY | 2024-05-19 00:35 | XMS_ITS | Encounter Summary ---
[place] [address] Care Team Providers Care Accounting Reconciliation Clerk Name Role Phone Gwen Stanford MD Primary Care Provider [phone] Encounter Details Date Type Department Care Team (Late st Contact Info) Description 12/28/2016 Telephone [place] [phone] Jayde Aden MD Social History Tobacco Use Types Packs/Day Years [...] on file documented as of this encounter Miscellaneous Notes * Telephone Encounter - Jayde Aden MD - 12/28/2016 5:08 PM EDT Unable to reach patient by phone. Left message to call if she has additional concerns. * Telephone Encounter - Jayde Aden MD - 12/28/2016 5:08 PM EDT ----- Message from Michelle Guido, RN sent at 12/22/2016 8:36 AM EDT ----- Contact: Would like a call. Has questions about follow up etc. documented in this encounter Plan of Treatment Upcoming Encounters Date Type Department Care Team (Late st Contact Info) Description 06/29/2024 1:40 PM EST Appointment Mammography[place] [address] Gwen Stanford MD [address] [place] [address] 09/11/2024 10:00 AM EDT Office Visit Dermatology at [facility] [address] [place] [address] Su Rosas MD [facility] [address] ANTONINA [place] [address] documented as of this encounter Visit Diagnoses Not on filedocumented in this encounter Care Teams Accounting Reconciliation Clerk Relationship Specialty Start Date End Date Gwen Stanford MD [address] [place], [place] [address] PCP - General 04/15/10 documented as of this encounter
--- OUTSIDE RECORDS SUMMARY | 2024-05-19 00:35 | XMS_ITS | Encounter Summary ---
Author Organization Formerly [facility], 1928–1983 Address [facility] [place] [address] Care Team Providers Care Gauge Checker Name Role Phone Gwen Stanford MD Primary Care Provider [phone] Reason for Visit * Reason Comments Procedure Encounter Details Date Type Department Care Team (Late st Contact Info) Description 09/21/2022 11:00 AM EDT Office Visit Dermatology at [facility] [address] [place] [address] Su Rosas MD [facility] DR ANTONINA [place] [address] Kayy Wilkins RN Encounter for cosmetic procedure; Solar aging of skin Social History Tobacco Use Types Packs/Day Years [...] this encounter Patient Instructions * Patient Instructions* Kayy Wilkins RN - 09/21/2022 11:00 AM EDT Images from the original note were not included. Retinoid Instructions Retinoids are a class of topical prescription and emxh-zmm-jnsmtuv skin medications. Originally used for acne, they have also proven to be the most effective anti-aging ingredient available. Retinoids turn on cell function that has out with time and sun exposure. They quell inflammation, even out discoloration and help the skin to maintain clear pores. Your results will depend on your ability to be consistent and persistent with them. Your skin may protest when you start a retinoid (like muscles do when newly worked). We call this a???retinoid reaction?? . Retinoid reactions cause dry, peeling, red skin. It's normal for the skin to feel tighter, germ drier, more uneven in color and even ???older?? . This is 1) temporary (always goesaway within 5 days if you stop the product) 2) desired (it is a sign of renewal and deep cleansing of the skin) and 3) delayed (it appears 3 days after you apply it). Occasionally, it causes a skin breakout or makes acne temporarily worse. With patience, persistence and a mindset of ???out with theold and in with the new?? you will be rewarded. Expect to see clearer, less sensitive skin within 6 weeks. Apply tretinoin in the evening only. This medication can increase your risk of a sun burn, so take extra caution with sun exposure. How to Get Started: Apply a pea-sized amount to a clean, dry face and leave on overnight. Do this once, then wait 3-4 days. Most will experience some peeling on day 3 or 4. Repeat when your skin feels ready (redness and peeling have cleared). Gradually increase the frequency to every 3rd, then every other night. Your goal is 5-7 nights per week. Most people apply about 3 days in a week in summer/periods of increased sun exposure, and work up to 5-7 nights a week in winter. But, applying only 3nights a week is more than sufficient, just depends what your skin tolerates. Seasonal Factors: Retinoid reactions can be more severe in the winter. During winter you may need to go slowly and might need to ???buffer?? the skin with a moisturizer (see below). Summer months are ideal for retinoid use as long as you also wear sunscreen. You???ll get less ???sunscreen related breakouts?? if you stick with your retinoid and your skin will sustain less damage from the sun. Caution should be used to avoid the sun if you have visible irritation and peeling from a retinoid. Decrease your use in that case but still try to advance as tolerated. Caution: Retinoids are not allowed during pregancy (but can be resumed during ). Stop any retinoid 5 days before any waxing, chemical peel, facial or other skin procedure. Sensitivity: If you have trouble tolerating your retinoid, you may benefit from using a ???buffer?? on the skin before applying the retinoid. A lightweight moisturizer or a soothing serum can be layered under the tretinoin and you should try to eventually skip this step as your skin acclimates to the retinoid. Contact us if you would like suggestions for a buffer to help in your initial use ofa retinoid. Suggestions for Success with a Retinoid: Amlactin Rapid Relief: Its label warns that it may increase sun sensitivity and that it should be avoided on the face. Neither is true. Using this daily can help prevent more intense retinoid irritation. If you have sensitive skin, it needs to be strengthened. Amlactin will do this, possibly with intense stinging in the beginning. OK to take a few days off when needed but resume quickly to continue conditioning and strengthening your skin. You can apply this in the evening on your non-tretinoinnights. documented in this encounter Progress Notes * Su Rosas MD - 09/21/2022 11:00 AM EDT Images from the original note were not included. DATE OF SERVICE: 09/21/2022 PROVIDER: Kayy Wilkins RN Supervising provider (indirect, onsite): Su Rosas MD Lourdes Castro : 1955 PATIENT PREFERENCES: -prefers to be called: Lourdes KHOURY Lourdes Castro is a 67 y.o. year old female. Here for Vbeam procedure 09/21/2022. Patient has had no recent changes in health, unexplained weight loss or skin concerns. Robust response to initial VBeam treatment, see myDH messages. Severe eye swelling lasting for 5-7 days. Patient does note reduced redness COSMETIC TREATMENT VISIT -HSV prophylaxis? no -Recent sun exposure? no -, lactating or trying to conceive?: no ADR: Allergies Allergen Reactions ??? Codeine Anxiety ??? Penicillins Anaphylaxis ??? Prochlorperazine Other (See Comments) [place] sedated MEDS: Current Outpatient Medications Medication Sig Dispense Refill ??? estradioL (Estrace) 1 mg tablet Take 2 mg by mouth daily. ??? ibuprofen (Advil) 200 mg tablet Take 600 mg by mouth every 8 hours as needed for Pain. ??? acetaminophen (TYLENOL) 325 mg Tablet Take 2 tablets by mouth every 6 hours. (Patient taking differently: Take 650 mg by mouth every 6 hours as needed.) 30 tablet 1 ??? clonAZEpam (KLONOPIN) 1 mg tablet 1MG = 1 Tablet(s), PO, Once daily,PRN No current facility-administered medications for this visit. TREATMENT MAPS: * ? DIAGNOSIS/ASSESSMENT: # Chemoprevention/correction: Emphasized value of retinoid-based skin care system to amplify and maintain benefits of any anti aging plan/procedures. -special considerations: [employer] Azelaic acid, metronidazole and ivermectin prescribed by Suzanne -retinoid: TBD date started: -ZO skincare regimen: regimen or products: reviewed by: date: -instructions in AVS dated, 08/17/2022 by AP -discussed importance of meticulous sun protection # Neurotoxin: - see Treatment Map - [...] - Neurotoxin Before and After instructions given ?? # Facial Volume Loss: - See procedure [...] specified Quote for filler plans: $not quoted ?? # Skin laxity - body / arms - Patient taking estrogen - Discussed inconclusive data on collagen supplements - Brief discussion of bio-stimulation filler, no quotes given - Recommend Amlactin Rapid Relief or CeraVe SA lotion ?? # Vbeam / IPL treatments for photodamage [...] with IPL when sun exposure is minimal ?? # Vbeam treatments for spider veins located [...] and details -Additional notes: See sclero assessment/plan ?? # Unwanted leg veins: Venulectasias, reticlar veins [...] and benefit of compression stockings was emphasized. ? # Photos - see media??12/31/2021 for pics taken pre vbeam legs, vbeam face, xeomin - 08/17/2022 for baseline photos prior to VBeam ? PROCEDURE/TREATMENT LOG(S): Date: 08/17/2022 Laser: Vbeam Area: [...] treatment settings. Indirect, onsite supervision of procedure. FOLLOW UP: 4-6 weeks VBeam with AP, $350 15 min COSMETIC COST TODAY: $350 Treatment delivered by Kayy Wilkins RN with indirect, onsite supervision by Su Rosas MD Settings and treatment plan verified by Su Rosas MD prior to treatment. Provider immediately available for any questions or concerns. I was consulted regarding the performed service and I agree with the accuracy of the documentation in this encounter, MD Su Mohr MD Department of Dermatology documented in this encounter Plan of Treatment Upcoming Encounters Date Type Department Care Team (Late st Contact Info) Description 06/29/2024 1:40 PM EST Appointment Mammography/[place] [address] Gwen Stanford MD [facility] [address] [address] 09/11/2024 10:00 AM EDT Office Visit Dermatology at [facility] [address] [place] [address] Su Rosas MD [facility] DR ANTONINA [place] [address] documented as of this encounter Visit Diagnoses Diagnosis Encounter for cosmetic procedure Solar aging of skin Other chronic dermatitis due to solar radiation documented in this encounter Care Teams Gauge Checker Relationship Specialty Start Date End Date Gwen Stanford MD [address] [facility] 1 [place] [address] PCP - General 04/15/10 documented as of this encounter
--- OUTSIDE RECORDS SUMMARY | 2024-05-19 00:35 | XMS_ITS | Encounter Summary ---
Author Organization Formerly [facility] [place] [place] [address] Care Team Providers Care Environmental Conservation Professor Name Role Phone Gwen Stanford MD Primary Care Provider [phone] Encounter Details Date Type Department Care Team (Latest Contact Info) Description 08/26/2023 Travel Social History Tobacco Use Types Packs/Day [...] 06/29/2024 1:40 PM EST Appointment Mammography[place] [address] Gwen Stanford MD [address] [place] [address] [address] [facility] 1 [place], [place] [address] 09/11/2024 10:00 AM EDT Office Visit Dermatology at [facility] [address] [place] [address] Su Rosas MD [facility] DR ANTON[place] [address] documented as of this encounter Visit Diagnoses Not on filedocumented in this encounter Care Teams Environmental Conservation Professor Relationship Specialty Start Date End Date Gwen Stanford MD [address] [place] [address] PCP - General 04/15/10 documented as of this encounter
--- OUTSIDE RECORDS SUMMARY | 2024-05-19 00:35 | XMS_ITS | Encounter Summary ---
Author Organization [facility] [place] [address] Care Team Providers Care Implant Polisher Name Role Phone Gwen Stanford MD Primary Care Provider [phone] Reason for Referral * Consultation (Routine) - Closed Specialty Diagnoses / Procedures Referred By Letitia gtz Referred To Contact Podiatry Diagnoses Bunion BUNION OF GREAT TOE-CANNOT TOLERATE THE PAIN ANYMORE. READY FOR SURGERY Gwen Stanford MD [address] [place] [address] Abdulaziz Rivera, NAVARR[facility] [place] [address] Referral ID Status Reason Start Date Expiration Date V isits Requested Visits Authorized [id number] Closed Consult, Test & Treat PCP Updated and/or Approved 05/10/2023 05/09/2024 6 6 Encounter Details Date Type Department Care Team (Late st Contact Info) Description 05/13/2023 Transcribe Orders eDH Incoming Referrals [phone] Gwen Stanford MD [address] [place] [address] Bunion Social History Tobacco Use Types Packs/Day Years [...] 06/29/2024 1:40 PM EST Appointment Mammography/[place] [address] Gwen Stanford MD [address] [place], [place] [address] 09/11/2024 10:00 AM EDT Office Visit Dermatology at [address] [address] Su Rosas MD [facility] DR ANTON[place] [address] Scheduled Referrals Name Type Priority Associated Diagnoses Orde r Schedule Referral to Podiatry Outpatient Referral Routine Bunion Ordered: 05/13/2023 documented as of this encounter Visit Diagnoses Diagnosis Bunion documented in this encounter Care Teams Implant Polisher Relationship Specialty Start Date End Date Gwen Stanford MD [address] [place] [address] PCP - General 04/15/10 documented as of this encounter
--- OUTSIDE RECORDS SUMMARY | 2024-05-19 00:35 | XMS_ITS | Encounter Summary ---
Author Organization [facility] Address [facility] [place] [address] Care Team Providers Care Payroll Accountant Name Role Phone Gwen Stanford MD Primary Care Provider Reason for Referral * Consultation (Routine) - Closed Specialty Diagnoses / Procedures Referred By Letitia t Referred To Contact Obstetrics and Gynecology Diagnoses Cystocele, unspecified (CODE) Other specified disorders of muscle Gwen Stanford MD [address] [place] [address] Jaime Hong MD [facility] [place] [address] Referral ID Status Reason Start Date Expiration Date V isits Requested Visits Authorized [id number] Closed Consult, Test & Treat 07/29/2021 07/29/2022 6 6 Encounter Details Date Type Department Care Team (Late st Contact Info) Description 07/29/2021 Transcribe Orders eDH Incoming Referrals [phone] Gwen Stanford MD [address] [place], [place] [id number] Cystocele, unspecified (CODE); Other specified disorders of muscle Social History Tobacco Use Types Packs/Day Years [...] 06/29/2024 1:40 PM EST Appointment Mammography[place] [address] Gwen Stanford MD [address] [facility] 1 [place], [place] [address] 09/11/2024 10:00 AM EDT Office Visit Dermatology at [address] [place] [address] Su Rosas MD [facility] [address] [place]TON[place] [address] Scheduled Referrals Name Type Priority Associated Diagnoses Order Schedule Referral to Urogynecology Outpatient Referral Routine Cystocele, Unspecified (Code) Other specified disorders of muscle Ordered: 07/29/2021 documented as of this encounter Visit Diagnoses Diagnosis Cystocele, unspecified (CODE) Other specified disorders of muscle documented in this encounter Care Teams Payroll Accountant Relationship Specialty Start Date End Date Gwen Stanford MD [address] [place] [address] PCP - General 04/15/10 documented as of this encounter
--- OUTSIDE RECORDS SUMMARY | 2024-05-19 00:35 | XMS_ITS | Encounter Summary ---
[place] [address] Care Team Providers Care General Forecaster Name Role Phone Gwen Stanford MD Primary Care Provider [phone] Reason for Visit * Reason Comments Follow-up Encounter Details Date Type Department Care Team (Late st Contact Info) Description 08/20/2022 8:45 AM EDT Office Visit Obstetrics [place] [address] Sudeep Burris MD [facility] OBSTET[facility] [place] [address] Vaginal vault prolapse; Cystocele, midline; DANII (stress urinary incontinence, female) Social History Tobacco Use Types Packs/Day Years [...] on file documented as of this encounter Last Filed Vital Signs Vital Sign Reading Time Taken Comments Blood Pressure 118/61 08/20/2022 8:34 AM EDT Pulse 65 08/20/2022 8:34 AM EDT Temperature 35.6 ??C (96 ??F) 08/20/2022 8:34 AM EDT Respiratory Rate - - Oxygen Saturation 100% 08/20/2022 8:34 AM EDT Inhaled Oxygen Concentration - - Weight 58.1 kg (128 lb) 08/20/2022 8:34 AM EDT Height - - Body Mass Index 24.59 08/18/2022 2:36 PM EDT documented in this encounter Progress Notes * Sudeep Burris MD - 08/20/2022 8:45 AM EDT Patient Active Problem List Diagnosis Code ??? Trigger thumb of left hand M65.312 ??? Former smoker Z87.891 ??? Postmenopausal HRT (hormone replacement therapy) Z79.890 ??? Tendinitis M77.9 ??? Post-operative state Z98.890 SUBJECTIVE: Lourdes Castro comes in today for a discussion of surgical options to treat prolapse. She saw Dr. Jaime Hong, 08/18/22 and was noted to have stage 2 support, with primarily anterior wall prolapse and some apical descent. Her bladder scan PVR was elevated at 155 mL. They discussed the pros/ cons of qagan tayagungin tissue repair versus mesh repair, risks of de sharri urinary incontinence. Dr. Hong'sPOP-Q exam had the following measurements: ?? Aa ?? +1 Ba +1 C -5 GH ?? 4, 5 PB ?? 2, 2 TVL ?? 9 Ap ?? -2 Bp -2 D n/a ?? She has denies urinary incontinence or trouble with her bowels. 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 Dr. Hong had discussed a laparoscopic uterosacral ligament suspension, possible Nicolas retropubic urethropexy or sling (mesh) as options. OBJECTIVE: Blood pressure 118/61, pulse 65, temperature 35.6 ??C (96 ??F), weight 58.1 kg (128 lb), SpO2 100 %. A recruitment and outreach assistant was present for the examination: DEBO [place] General: In no distress. Back: No CVAT, non-tender. Abdomen: Flat, non-tender, no organomegaly, masses or hernias. Pelvic: Normal external genitalia, including urethral meatus and perineum. Vagina: Anterior wall descent to 2 cm beyond the hymen, apex to 4 cm above hymen. Cervix: Absent With reduction of the prolapse, using a Scopette, stress urinary incontinence was confirmed. Bimanual: Uterus is surgically absent; no adnexal masses or tenderness. Rectal deferred. ASSESSMENT: Lourdes Castro is a 67 y.o. year old woman with: ?? Vaginal prolapse, post-hysterectomy, involving the apex and anterior cruz predominantly. ?? Occult stress urinary incontinence with support of the prolapse. PLAN: We reviewed the options that Dr. Hong previously presented including options of qagan tayagungin (sacrospinous or uterosacral) ligament repair (via trans-vaginal or laparoscopic Approach) versus laparoscopic mesh sacral colpopexy. We reviewed the pros / cons of each approach, including less durability with qagan tayagungin ligament repair but added risks of bowel injury/ obstruction or mesh erosion with mesh repair.We reviewed that ~1:5 women feel a recurrent protrusion with a qagan tayagungin tissue repair at 5 years, and~1:10 with a mesh repair. We reviewed the risk of reoperation for recurrent prolapse or mesh complications is about the same with both approaches, at ~6%. ?? We reviewed that she would likely benefit from an anti-incontinence procedure with prolapse surgery, based on positive cough stress test today with support. ?? She wants to consider her options further and will let us know how she wants to proceed. I spent 30minutes total with the patient, with 25 minutes of the time spent [id number] in discussing her diagnosis and reviewing options for treatment. SUDEEP BURRIS MD Division of Female Pelvic Medicine & Reconstructive Surgery * Yoon Benitez LNA - 08/20/2022 8:45 AM EDT Examination chaperoned by DEBO Rossi. documented in this encounter Plan of Treatment Upcoming Encounters Date Type Department Care Team (Late st Contact Info) Description 06/29/2024 1:40 PM EST Appointment Mammography/[place] [address] Gwen Stanford MD [address] [place] [address] 09/11/2024 10:00 AM EDT Office Visit Dermatology at [facility] [address] [place] [address] Su Rosas MD [facility] DR ANTONINA [place] [address] documented as of this encounter Visit Diagnoses Diagnosis Vaginal vault prolapse Unspecified prolapse of vaginal cruz Cystocele, midline DANII (stress urinary incontinence, female) Female stress incontinence documented in this encounter Care Teams General Forecaster Relationship Specialty Start Date End Date Gwen Stanford MD [address] [place] [address] PCP - General 04/15/10 documented as of this encounter
--- OUTSIDE RECORDS SUMMARY | 2024-05-19 00:35 | XMS_ITS | Encounter Summary ---
Author Organization [facility] [place] [address] Care Team Providers Care Spanish Speaking Babysitter Name Role Phone Gwen Stanford MD Primary Care Provider Encounter Details Date Type Department Care Team (Latest Contact Info) Description 10/13/2023 Travel Social History Tobacco Use Types Packs/Day [...] 06/29/2024 1:40 PM EST Appointment Mammography[place] [address] Gwen Stanford MD [address] [place] [address] [address] [facility] 1 [place], [place] [address] 09/11/2024 10:00 AM EDT Office Visit Dermatology at [facility] [address] [place] [address] Su Rosas MD [facility] [address] ANTONINA [place] [address] documented as of this encounter Visit Diagnoses Not on filedocumented in this encounter Care Teams Spanish Speaking Babysitter Relationship Specialty Start Date End Date Gwen Stanford MD [address] [place] [address] PCP - General 04/15/10 documented as of this encounter
--- OUTSIDE RECORDS SUMMARY | 2024-05-19 00:35 | XMS_ITS | Encounter Summary ---
[place] [address] Care Team Providers Care Log Skidder Name Role Phone Gwen Stanford MD Primary Care Provider [phone] Reason for Visit * Reason Onset Date Comments Chest Pain 05/22/2016 Encounter Details Date Type Department Care Team (Late st Contact Info) Description 05/22/2016 Telephone Hematology [place] [address] Michelle Guido, RN Chest Pain Social History Tobacco Use Types Packs/Day Years [...] encounter Miscellaneous Notes * Telephone Encounter - Michelle Guido RN - 05/22/2016 4:00 PM EST Lourdes calls c/o sharp pain in chest that has been there all day. States it is particularly bad with deep inspiration. Denies swelling in legs or feet. Advised pt to go to local ER. Pt states she will call her PCP and get her opinion first then she might go to the ER. documented in this encounter Plan of Treatment Upcoming Encounters Date Type Department Care Team (Late st Contact Info) Description 06/29/2024 1:40 PM EST Appointment Mammography/[place] [address] Gwen Stanford MD [address] [place], [place] [address] 09/11/2024 10:00 AM EDT Office Visit Dermatology at [address] [phone] Su oRsas MD [facility] DR [address]TON[place] [address] documented as of this encounter Visit Diagnoses Not on filedocumented in this encounter Care Teams Log Skidder Relationship Specialty Start Date End Date Gwen Stanford MD [address] [place], [place] [address] PCP - General 04/15/10 documented as of this encounter
--- OUTSIDE RECORDS SUMMARY | 2024-05-19 00:35 | XMS_ITS | Encounter Summary ---
Author Organization [facility] Address [facility] [place] [address] Care Team Providers Care Senior Staff Specialized Employment Name Role Phone Gwen Stanford MD Primary Care Provider [phone] Encounter Details Date Type Department Care Team (Late st Contact Info) Description 02/24/2023 Telephone Dermatology at [facility] [address] [place] [phone] Su Rosas MD [facility] [address] ANTONINA [place] [address] Social History Tobacco Use Types Packs/Day Years [...] encounter Miscellaneous Notes * Telephone Encounter - Jm Catie Nela - 02/24/2023 2:22 PM EDT I received a phone call from Lourdes Castro stating she needed a refill of: Azelaic acid 15%, Ivermectin 1%, Metronidazole 1% cream BID through [facility]. Dr. Xie prescribed this in October of 2021 for Rosacea, she said she and Dr. Rosas have talked about it. I told her I would send a note to the team to see if this is something we can refill. If there are any issues she can be reached back at [phone]. She also gave me the online name for the pharmacy as [facility] [place] documented in this encounter Plan of Treatment Upcoming Encounters Date Type Department Care Team (Late st Contact Info) Description 06/29/2024 1:40 PM EST Appointment Mammography/[place] [address] Gwen Stanford MD [address] [facility] [place], [place] [address] 09/11/2024 10:00 AM EDT Office Visit Dermatology at [address] [address] Su Rosas MD [facility] [address] ANTONINA [place] [address] documented as of this encounter Visit Diagnoses Not on filedocumented in this encounter Care Teams Senior Staff Specialized Employment Relationship Specialty Start Date End Date Gwen Stanford MD [address] [place], [place] [address] PCP - General 04/15/10 documented as of this encounter
--- OUTSIDE RECORDS SUMMARY | 2024-05-19 00:35 | XMS_ITS | Encounter Summary ---
[place] [address] Care Team Providers Care Optical Model Maker And Tester Name Role Phone Gwen Stanford MD Primary Care Provider [phone] Encounter Details Date Type Department Care Team (Late st Contact Info) Description 01/14/2017 Telephone [place] [phone] Jayde Aden MD Social History Tobacco Use [...] Telephone Encounter - Jayde Aden MD - 01/14/2017 5:51 PM EDT Patient called Michelle with concerns of pelvic floor pain. She has seen her PCP and her PUBLIC SAFETY DIRECTOR for this and was feeling frustrated. She does not carry a cancer diagnosis but had a hysterectomy for what thankfully returned as benign disease. I left a message again as I have been unable to reach her on her numerous phone numbers listed. I left a message that should she have ongoing concern she is happy to seek a second opinion from one of our benign gynecologists here such as Dr. Alejandra and I'd be happy to help facilitate this. I donot directly treat pelvic pain but given that she has had surgery within the past year with me, I would recommend checking a CT scan of the abdomen and pelvis to make Sure That There Are No Obvious Surgical Injuries. I Would Not Expect There to Be This Far out However. She Is Advised to Call My Office if She Would like a Referral. documented in this encounter Plan of Treatment Upcoming Encounters Date Type Department Care Team (Late st Contact Info) Description 06/29/2024 1:40 PM EST Appointment Mammography/[place] [address] Gwen Stanford MD [address] [place], [place] [address] 09/11/2024 10:00 AM EDT Office Visit Dermatology at [address] [address] Su Rosas MD [facility] [address]TONINA [place] [address] documented as of this encounter Visit Diagnoses Not on filedocumented in this encounter Care Teams Optical Model Maker And Tester Relationship Specialty Start Date End Date Gwen Stanford MD [address] [place], [place] [address] PCP - General 04/15/10 documented as of this encounter
--- OUTSIDE RECORDS SUMMARY | 2024-05-19 00:35 | XMS_ITS | Encounter Summary ---
[place] [address] Care Team Providers Care Botany Teacher Name Role Phone Gwen Stanford MD Primary Care Provider Encounter Details Date Type Department Care Team (Late st Contact Info) Description 07/17/2016 10:42 AM EST - 07/17/2016 11:59 PM [facility] [place] [address] Gwen Stanford MD [address] [place] [address] [address] [place], [place] [address] Visit for screening mammogram Discharge Disposition: Home Social History Tobacco Use [...] 06/29/2024 1:40 PM EST Appointment Mammography/[place] [address] Gwen Stanford MD [facility] [address] [address] 09/11/2024 10:00 AM EDT Office Visit Dermatology at [address] [phone] Su Rosas MD [facility] [address] [place] [address] documented as of this encounter Procedures Procedure Name Priority Date/Time Associated Diagnosis Comments MAMMO SCREENING CAD AND CEDRICK BILATERAL Routine 07/17/2016 11:01 AM EST Visit for screening mammogram documented in this encounter Results * Mammo Screen CAD and Cedrick Bilat (Generic) (07/17/2016 11:01 AM EST) Anatomical Region Laterality Modality Breast Bilateral Mammography Narrative 07/17/2016 11:14 AM EST BILATERAL MAMMOGRAPHY REASON FOR EXAM: Screening TECHNIQUE: [...] CONCLUSION: No mammographic evidence of malignancy. RECOMMENDATION: The [employer] and The Society of Breast Imaging recommend annual screening beginning at age 40 for the general female population. Screening should continue as long as a woman is in good health and is expected to live 10 more years or longer. All women should be familiar with the known benefits, limitations, and potential harms linked to breast cancer screening. They should also know how their breasts normally look and feel and report any breast changes to a health care provider right away. Some women - because of their family history, a genetic tendency, or certain other factors - should be screened with MRIs along with mammograms. (The number of women who fall into this category is very small.) The patient and health care provider should discuss the patient history and decide if earlier screening and breast MRI are appropriate. A result letter has been sent to this patient by the [facility]. BIRADS CATEGORY 1: NEGATIVE Gwen Stanford MD IMG MAMMO ORDERABLES documented in this encounter Visit Diagnoses Diagnosis Visit for screening mammogram Other screening mammogram documented in this encounter Care Teams Botany Teacher Relationship Specialty Start Date End Date Gwen Stanford MD [address] [place] [address] PCP - General 04/15/10 documented as of this encounter
--- OUTSIDE RECORDS SUMMARY | 2024-05-19 00:35 | XMS_ITS | Encounter Summary ---
[place] [address] Care Team Providers Care Cracking Machine Operator Name Role Phone Gwen Stanford MD Primary Care Provider [phone] Encounter Details Date Type Department Care Team (Late st Contact Info) Description 07/06/[address] [place] [phone] Luci Saini Social History Tobacco Use Types Packs/Day Years [...] 06/29/2024 1:40 PM EST Appointment Mammography[place] [phone] Gwen Stanford MD [address] [place], [place] [address] [address] [place] [address] 09/11/2024 10:00 AM EDT Office Visit Dermatology at [facility] [address] [place] [address] Su Rosas MD [facility] DR [address]TON[place] [address] documented as of this encounter Visit Diagnoses Not on filedocumented in this encounter Care Teams Cracking Machine Operator Relationship Specialty Start Date End Date Gwen Stanford MD [address] [place] [address] [address] PCP - General 04/15/10 documented as of this encounter
--- OUTSIDE RECORDS SUMMARY | 2024-05-19 00:35 | XMS_ITS | Encounter Summary ---
Author Organization [facility] [place] [address] Care Team Providers Care Drum Stenciler Name Role Phone Gwen Stanford MD Primary Care Provider [phone] Encounter Details Date Type Department Care Team (Late st Contact Info) Description 12/31/2021 11:20 AM EDT Office Visit Dermatology at [facility] [address] [place] [address] Chucky Hudson MD SK (seborrheic keratosis); Padron angioma; Lentigines; Multiple benign nevi Social History Tobacco Use Types Packs/Day Years [...] as of this encounter Progress Notes * Chucky Hudson MD - 12/31/2021 11:20 AM EDT Images from the original note were not included. DEPARTMENT OF DERMATOLOGY Medical Dermatology Clinic Provider: Chantal Greenwood MD Patient's preferred name Lourdes Preferred contact method for results [x]Phone []myD-H []Letter Detailed phone message OK? Y Are there any other people with whom we may discuss your care? N Past Medical History Date, location, treatment Melanoma N Dysplastic nevi N SCC N BCC N AKs N UV Exposure & Protection + history of blistering sunburn Other relevant past medical history Perioral dermatitis Family History Details Melanoma N NMSC N Other relevant family history N Social History Occupation: Retired Pre-Procedure Screening Details Allergy to lidocaine, epinephrine, Dermabond, chlorhexidine, or adhesives N Bleeding disorder or blood thinners N Implanted devices (Pacemaker, defibrillator, deep brain stimulator, cochlear implant) N History of Present Illness: Lourdes Castro is a 66 y.o. Patient returns to clinic today for a full skin exam presenting with the following concerns; -patient denies any specific concerns: no lesions that are new, symptomatic or changing. Last visit at Dermatology: 12/31/2021 Last visit with this provider: Visit date not found Medications: Reviewed in eD-H Allergies: Reviewed in eD-H Skin Examination: Full skin examination: Patient asked to undress to their comfort level. Verbalized that the provider???s preference is that the patient remove all clothing and that the provider will not examine areas patient elects to keep covered. Patient elects to keep underwear on and have the following examined: scalp, hair, face, ears, neck, chest, axillae, abdomen, back, and upper and lower extremities. Genitalia and buttocks were not examined. Assessment/Plan #. Benign Nevi - Scattered medium brown, evenly pigmented macules and papules on the trunk and extremities with reassuring pigment pattern on dermoscopy. - Discussed benign nature of lesions and provided reassurance. Will continue to monitor. #. Lentigines - Scattered light-brown, evenly pigmented, well-demarcated macules on sun-exposed areas of the trunk and extremities. - No worrisome pigmented lesions. Discussed benign nature of lesions and provided reassurance. Willcontinue to monitor. #. Padron Angiomas - Multiple bright red, well-demarcated papules on the trunk and extremities. - Discussed benign nature of lesions and provided reassurance. No treatment necessary at this time. #. Seborrheic Keratoses - Stuck on, waxy papules on the trunk and extremities. - Discussed benign nature of lesions and provided reassurance. No treatment necessary at this time. Other: ??? Sun protection discussed (protective clothing and SPF30+ broad-spectrum sunscreen) RTC: 1 year for FSE []Note routed to pathology secretary/transcriptionist [x]Recall placed in scheduling system []Appointment scheduled at checkout Scribe attestation: Shyanne Burgess has performed the documentation for this encounter in the presence of and acting as a scribe for Chucky Hudson MD. I performed the above scribed service and agree with the accuracy of the documentation in this encounter. Reviewed and signed by: Chantal Greenwood MD Dermatology [facility] Patient seen and evaluated with staff drafter directional survey: Millie Ochoa MD Dermatology [facility] * Millie Ochoa MD - 12/31/2021 11:20 AM EDT I directly supervised Dr. Hudson during this office visit. Dr. Hudson presented the history and physical exam to me. I, then, saw and examined this patient with Dr. Hudson . We reviewed the history and pertinent details and I confirmed the physical findings. I agree with the details of the history andphysical exam as documented in Dr. Hudson's note. MILLIE OCHOA MD Staff Physician documented in this encounter Plan of Treatment Upcoming Encounters Date Type Department Care Team (Late st Contact Info) Description 06/29/2024 1:40 PM EST Appointment Mammography/[place] [address] Gwen Stanford MD [facility] [address] [place] [address] 09/11/2024 10:00 AM EDT Office Visit Dermatology at [facility] [address] [place] [address] Su Rosas MD [facility] DR ANTONINA [place] [address] documented as of this encounter Visit Diagnoses Diagnosis SK (seborrheic keratosis) Other seborrheic keratosis Padron angioma Nevus, non-neoplastic Lentigines Other dyschromia Multiple benign nevi Benign neoplasm of skin, site unspecified documented in this encounter Care Teams Drum Stenciler Relationship Specialty Start Date End Date Gwen Stanford MD [address] [place] [address] PCP - General 04/15/10 documented as of this encounter
--- OUTSIDE RECORDS SUMMARY | 2024-05-19 00:35 | XMS_ITS | Encounter Summary ---
Author Organization [facility] Address [facility] [place] [address] Care Team Providers Care Wood Milling Machine Hand Name Role Phone Gwen Stanford MD Primary Care Provider Reason for Referral * Consultation (Routine) - Closed Specialty Diagnoses / Procedures Referred By Letitia t Referred To Contact Obstetrics and Gynecology Diagnoses Other specified disorders of muscle Gwen Stanford MD [address] [place] [address] Jaime Hong MD [facility] [place] [address] Referral ID Status Reason Start Date Expiration Date V isits Requested Visits Authorized [id number] Closed Consult, Test & Treat PCP Updated and/or Approved 04/23/2022 04/23/2023 6 6 Encounter Details Date Type Department Care Team (Late st Contact Info) Description 04/23/2022 Transcribe Orders eDH Incoming Referrals [phone] Gwen Stanford MD [address] [place], [place] [id number] Other specified disorders of muscle Social History [...] 06/29/2024 1:40 PM EST Appointment Mammography[place] [address] Gwen Stanford MD [address] [place], [place] [address] 09/11/2024 10:00 AM EDT Office Visit Dermatology at [facility] [address] [place] [address] Su Rosas MD [facility] [address]TONINA [place] [address] Scheduled Referrals Name Type Priority Associated Diagnoses Order Schedule Referral to Urogynecology Outpatient Referral Routine Other specified disorders of muscle Ordered: 04/23/2022 documented as of this encounter Visit Diagnoses Diagnosis Other specified disorders of muscle documented in this encounter Care Teams Wood Milling Machine Hand Relationship Specialty Start Date End Date Gwen Stanford MD [address] [place], [place] [address] PCP - General 04/15/10 documented as of this encounter
--- OUTSIDE RECORDS SUMMARY | 2024-05-19 00:35 | XMS_ITS | Encounter Summary ---
[place] [address] Care Team Providers Care Hose Coupling Joiner Name Role Phone Gwen Stanford MD Primary Care Provider Reason for Referral * Diagnostic Test (Routine) - Closed Specialty Diagnoses / Procedures Referred By Contac t Referred To Contact Radiology Diagnoses Abdominal pain, unspecified location Procedures CT Abdomen & Pelvis w Contrast Gwen Stanford MD [facility] [address] [place] [address] [facility] [place] [address] Referral ID Status Reason Start Date Expiration Date V isits Requested Visits Authorized [id number] Closed Specialty Service Requested 01/14/2017 03/14/2017 1 1 Reason for Visit * Diagnostic Test (Routine) - Closed Specialty Diagnoses / Procedures Referred By Contac t Referred To Contact Radiology Diagnoses Abdominal pain, unspecified location Procedures CT Abdomen & Pelvis w Contrast Gwen Stanford MD [address] [place] [address] [facility] [place] [address] Referral ID Status Reason Start Date Expiration Date V isits Requested Visits Authorized [id number] Closed Specialty Service Requested 01/14/2017 03/14/2017 1 1 Encounter Details Date Type Department Care Team (Late st Contact Info) Description 01/15/2017 2:00 PM EDT - 01/15/2017 11:59 PM EDT Hospital [place] [address] Gwen Stanford MD [address] [place] [address] Abdominal pain, unspecified location Discharge Disposition: Home Social History Tobacco Use [...] 06/29/2024 1:40 PM EST Appointment Mammography/[place] [address] Gwen Stanford MD [address] [place] [address] 09/11/2024 10:00 AM EDT Office Visit Dermatology at [facility] [address] [place] [address] Su Rosas MD [facility] DR [place]TON[place] [address] documented as of this encounter Procedures Procedure Name Priority Date/Time Associated Diagnosis Comments CT ABDOMEN AND PELVIS W CONTRAST Routine 01/15/2017 4:37 PM EDT Abdominal pain, unspecified location documented in this encounter Results * CT Abdomen & Pelvis w Contrast (01/15/2017 4:37 PM EDT) Anatomical Region Laterality Modality Abdomen, Pelvis Computed Tomogra phy Impressions 01/15/2017 4:54 PM EDT No acute findings or visible etiology for patient's symptoms. Two ??nonobstructing RIGHT renal calculi. No hydronephrosis bilaterally. Narrative 01/15/2017 4:54 PM EDT EXAMINATION: ??CT ABDOMEN AND PELVIS W CONTRAST CLINICAL HISTORY: ??pelvis pain(female) TECHNIQUE: Helical CT of the abdomen and pelvis was performed following the intravenous administration of contrast. 69 cc of Omnipaque 350 was given. Oral contrast was administered. COMPARISON: ??None FINDINGS: Lower chest: Normal. Liver: Normal size and attenuation without lesions. Bile ducts: Nondilated. Gallbladder: No calcified gallstones. Normal caliber wall. Pancreas: Normal attenuation without ductal dilatation. Spleen: Normal. Adrenals: Normal. Kidneys: Nonobstructing 5 mm calculus upper pole RIGHT kidney. Smaller, nonobstructing, punctate RIGHT lower pole renal calculus. No renal masses bilaterally. No renal collecting system obstruction bilaterally. Vasculature: No aneurysm. Lymph Nodes: No enlarged lymph nodes. Bowel: Nondilated, no wall thickening. ??No evidence of inflammatory bowel disease. The appendix is visualized and is normal. Peritoneum and mesentery: No ascites, free air, or loculated fluid collection. No mesenteric inflammation. Abdominal wall: Normal. Urinary Bladder: Normal. Reproductive organs: The uterus and ovaries are not visualized. Osseous structures: No suspicious lesions. Procedure Note Ruperto Lopez MD - 01/15/2017 EXAMINATION: CT ABDOMEN AND PELVIS W CONTRAST CLINICAL HISTORY: pelvis pain(female) TECHNIQUE: Helical CT of the abdomen and pelvis was performed followingthe intravenous administration of contrast. 69 cc of Omnipaque 350 was given.Oral contrast was administered. COMPARISON: None FINDINGS: Lower chest: Normal. Liver: Normal size and attenuation without lesions. Bile ducts: Nondilated. Gallbladder: No calcified gallstones. Normal caliber wall. Pancreas: Normal attenuation without ductal dilatation. Spleen: Normal. Adrenals: Normal. Kidneys: Nonobstructing 5 mm calculus upper pole RIGHT kidney. Smaller, nonobstructing, punctate RIGHT lower pole renal calculus. No renalmasses bilaterally. No renal collecting system obstruction bilaterally. Vasculature: No aneurysm. Lymph Nodes: No enlarged lymph nodes. Bowel: Nondilated, no wall thickening. No evidence of inflammatorybowel disease. The appendix is visualized and is normal. Peritoneum and mesentery: No ascites, free air, or loculated fluidcollection. No mesenteric inflammation. Abdominal wall: Normal. Urinary Bladder: Normal. Reproductive organs: The uterus and ovaries are not visualized. Osseous structures: No suspicious lesions. IMPRESSION No acute findings or visible etiology for patient's symptoms. Two nonobstructing RIGHT renal calculi. No hydronephrosis bilaterally. Gwen Stanford MD IM CT ORDERABLES documented in this encounter Visit Diagnoses Diagnosis Abdominal pain, unspecified location documented in this encounter Administered Medications Inactive Administered Medications - up to 3 most recent administrations Medication Order MAR Action Action Date Dose Rate Site iohexol (OMNIPAQUE) 300 mg/mL solution 69 mL 69 mL, Intravenous, ONCE PRN, 1 dose, Starting on Wed01/15/17 at 1614, Until Wed01/15/17 at 1615, Per Protocol, Warning Vesicant/Irritant Medication , Routine Given 01/15/2017 4:15 PM EDT 69 mLs documented in this encounter Care Teams Hose Coupling Joiner Relationship Specialty Start Date End Date Gwen Stanford MD [address] [place] [address] PCP - General 04/15/10 documented as of this encounter
--- OUTSIDE RECORDS SUMMARY | 2024-05-19 00:35 | XMS_ITS | Encounter Summary ---
[place] [address] Care Team Providers Care Eligibility Clerk Name Role Phone Gwen Stanford MD Primary Care Provider [phone] Encounter Details Date Type Department Care Team (Late st Contact Info) Description 09/16/2018 11:26 AM EDT - 09/16/2018 11:59 PM EDT Hospital Encounter Mammography/[place] [phone] Gwen Stanford MD [address] [place] [address] Encounter for screening mammogram for breast cancer [...] 06/29/2024 1:40 PM EST Appointment Mammography/[place] [address] Gwen Stanford MD [address] [place] [address] [address] 09/11/2024 10:00 AM EDT Office Visit Dermatology at [address] [address] Su Rosas MD [facility] DR [place] [address] documented as of this encounter Procedures Procedure Name Priority Date/Time Associated Diagnosis Comments MAMMO SCREENING CAD AND CEDRICK BILATERAL Routine 09/16/2018 11:51 AM EDT Encounter for screening mammogram for breast cancer documented in this encounter Results * Mammo Screening Cad and Cedrick Bilateral (09/16/2018 11:51 AM EDT) Anatomical Region Laterality Modality Breast Bilateral Mammography Narrative 09/16/2018 1:08 PM EDT SCREENING MAMMOGRAPHY OF THE BREAST(S) REASON FOR EXAM: Screening TECHNIQUE: 2D digitally acquired Craniocaudal (CC) and Medio-lateral oblique (MLO) views were obtained of each breast. 3D tomosynthesis images were obtained in addition to 2D images. ??Computer Assisted Detection was used. COMPARISON: 09/15/2017 back to 10/07/2012 FINDINGS: The breasts are heterogeneously dense, which may obscure small masses. There are no suspicious microcalcifications, masses, or areas of distortion. No changes compared to prior studies. CONCLUSION: No mammographic evidence of malignancy. RECOMMENDATION: Routine annual screening BIRADS CATEGORY 1: NEGATIVE * ??The [employer] and The Society of Breast Imaging recommend annual screening beginning at age 40 for the general female population. * ??Screening should continue as long as a woman is in good health and is expected to live 10 more years or longer. * ??All women should be familiar with the known benefits, limitations, and potential harms linked to breast cancer screening. They also should know how their breasts normally look and feel and report any breast changes to a health care provider right away. * ??Some women, because of their family history, a genetic tendency, or certain other factors, should be screened with MRIs along with mammograms. (The number of women who fall into this category is very small.) The patient and health care provider should discuss the patient history and decide if earlier screening and breast MRI are appropriate. Thank you for letting us participate in the care of this patient. For questions regarding this report, please contact the number below. ? Gwen Stanford MD IMG MAMMO ORDERABLES documented in this encounter Visit Diagnoses Diagnosis Encounter for screening mammogram for breast cancer documented in this encounter Care Teams Eligibility Clerk Relationship Specialty Start Date End Date Gwen Stanford MD [address] [place] [address] [address] [place] [address] PCP - General 04/15/10 documented as of this encounter
--- OUTSIDE RECORDS SUMMARY | 2024-05-19 00:35 | XMS_ITS | Encounter Summary ---
Author Organization [facility] Address [facility] [place] [address] Care Team Providers Care Medication Aide Name Role Phone Gwen Stanford MD Primary Care Provider [phone] Encounter Details Date Type Department Care Team (Late st Contact Info) Description 06/17/2022 Telephone Dermatology at [facility] [address] [place] [phone] Su Rosas MD [facility] [address] [place] [address] Social History Tobacco Use Types Packs/Day Years [...] encounter Miscellaneous Notes * Telephone Encounter - Alva Mcelroy - 06/17/2022 10:58 AM EST Left msg to reschedule vbeam and milia removal documented in this encounter Plan of Treatment Upcoming Encounters Date Type Department Care Team (Late st Contact Info) Description 06/29/2024 1:40 PM EST Appointment Mammography/[place] [address] Gwen Stanford MD [address] [facility] 1 [place], [place] [address] 09/11/2024 10:00 AM EDT Office Visit Dermatology at [place] [address] [place] [address] Su Rosas MD [facility] DR [address] [place] [address] documented as of this encounter Visit Diagnoses Not on filedocumented in this encounter Care Teams Medication Aide Relationship Specialty Start Date End Date Gwen Stanford MD [address] [place], [place] [id number] PCP - General 04/15/10 documented as of this encounter
--- OUTSIDE RECORDS SUMMARY | 2024-05-19 00:35 | XMS_ITS | Encounter Summary ---
Author Organization [facility] [place] [address] Care Team Providers Care Golf Tournament Consultant Name Role Phone Gwen Stanford MD Primary Care Provider [phone] Encounter Details Date Type Department Care Team (Latest Contact Info) Description 03/03/2023 Travel Social History Tobacco Use Types Packs/Day [...] 06/29/2024 1:40 PM EST Appointment Mammography/[place] [address] Gwen Stanford MD [address] [place] [address] [address] [facility] 1 [place], [place] [address] 09/11/2024 10:00 AM EDT Office Visit Dermatology at [facility] [address] [place] [phone] Su Rosas MD [facility] DR ANTONINA [place] [address] documented as of this encounter Visit Diagnoses Not on filedocumented in this encounter Care Teams Golf Tournament Consultant Relationship Specialty Start Date End Date Gwen Stanford MD [address] [place] [address] PCP - General 04/15/10 documented as of this encounter
--- OUTSIDE RECORDS SUMMARY | 2024-05-19 00:35 | XMS_ITS | Encounter Summary ---
Author Organization [facility] Address [facility] [place] [address] Care Team Providers Care Artificial Limb Maker Name Role Phone Gwen Stanford MD Primary Care Provider [phone] Encounter Details Date Type Department Care Team (Late st Contact Info) Description 10/13/2023 2:15 PM EDT Office Visit Dermatology at [facility] [address] [place] [phone] Su Rosas MD [facility] DR [address] [address] Perioral dermatitis Social History Tobacco Use Types Packs/Day Years [...] this encounter Patient Instructions * Patient Instructions* Brissa Moon CMA - 10/13/2023 2:15 PM EDT Instructions from Dr. Rosas - Take 100 mg of rx Doxycyline in the morning and the evening, 30 minutes prior to laying down and with a full glass of water and bland food. - Continue washing skin in the mornings and following with application of Skin Medicinals triple cream and sunscreen SPF 30+. - Continue washing face in the evening, apply Amlactin Intensive Healing to the face. documented in this encounter Progress Notes * Su Rosas MD - 10/13/2023 2:15 PM EDT Images from the original note were not included. DEPARTMENT OF DERMATOLOGY Medical Dermatology Clinic Provider: Su Rosas MD Patient's preferred name Lourdes Preferred contact method for results [x]Phone []myD-H []Letter Detailed phone message OK? Y Are there any other people with whom we may discuss your care? N Past Medical History Date, location, treatment Melanoma N Dysplastic nevi N SCC N BCC N AKs N UV Exposure & Protection + history of blistering sunburn Other relevant past medical history Perioral Dermatitis- tried metronidazole gel in the past. Rosacea - Rx. Azelaic acid 15%, Ivermectin 1%, Metronidazole 1% cream BID Hair loss Family History Details Melanoma N NMSC N Other relevant family history N Social History Occupation: Retired Pre-Procedure Screening Details Allergy to lidocaine, epinephrine, Dermabond, chlorhexidine, or adhesives N Bleeding disorder or blood thinners N Implanted devices (Pacemaker, defibrillator, deep brain stimulator, cochlear implant) History of Present Illness: Lourdes Castro is a 68 y.o. Patient returns to clinic today for perioral dermatitis. Patient reports that she has been Last visit at Dermatology: 08/26/2023 Medications: Reviewed in eD-H Allergies: Reviewed in eD-H Skin Examination: Focused skin examination of the perioral area was normal with the exception of the findings below. Assessment/Plan #. Periorificial Dermatitis - Mild, chin only. - Continue Rx Skin Medicinals Azelaic acid 15%, Ivermectin 1%, Metronidazole 1% cream: Apply topically to the entire face after washing in the mornings. (checked and 6 refills remain) - Recommended applying an acidic moisturizer (such as Amlactin Intensive Healing 15% LA) immediately after washing the face in the evenings. - Start Rx Doxycycline 100 mg: Take 1 capsule twice daily for 21 days. Counseled patient to take with bland food and a full glass of water, and to avoid laying down for 30 minutes. - Discussed side effects (GI upset, esophagitis, photosensitivity). - Reassured patient, discussed unknown etiology. - See AVS for further instructions. Other: OTC skin products discussed: Amlactin Intensive Healing 15% RTC: PRN, sooner if dermatitis is worsening. [x]Note routed to receptionist secretary []Recall placed in scheduling system []Appointment scheduled at checkout Scribe attestation: Brissa Moon CMA has performed the documentation for this encounter in the presence of and acting as a scribe for Su Rosas MD. I performed the above scribed service and agree with the accuracy of the documentation in this encounter. Reviewed and signed by: Su Rosas MD Dermatology [facility] documented in this encounter Plan of Treatment Upcoming Encounters Date Type Department Care Team (Late st Contact Info) Description 06/29/2024 1:40 PM EST Appointment Mammography/[place] [address] Gwen Stanford MD [address] [place] [address] 09/11/2024 10:00 AM EDT Office Visit Dermatology at [facility] [address] [place] [address] Su Rosas MD [facility] DR [address]TON[place] [address] documented as of this encounter Visit Diagnoses Diagnosis Perioral dermatitis Rosacea documented in this encounter Care Teams Artificial Limb Maker Relationship Specialty Start Date End Date Gwen Stanford MD [address] [place], [place] [address] PCP - General 04/15/10 documented as of this encounter
--- OUTSIDE RECORDS SUMMARY | 2024-05-19 00:35 | XMS_ITS | Encounter Summary ---
Author Organization [facility] Address [facility] [place] [address] Care Team Providers Care Shipping And Receiving Specialist Name Role Phone Gwen Stanford MD Primary Care Provider [phone] Reason for Visit * Reason Comments Vaginal Prolapse * Consultation (Routine) - Closed Specialty Diagnoses / Procedures Referred By Contac t Referred To Contact Obstetrics and Gynecology Diagnoses Other specified disorders of muscle Gwen Stanford MD [address] [place] [address] Jaime Hong MD [facility] [place] [address] Referral ID Status Reason Start Date Expiration Date V isits Requested Visits Authorized [id number] Closed Consult, Test & Treat PCP Updated and/or Approved 04/23/2022 04/23/2023 6 6 Encounter Details Date Type Department Care Team (Late st Contact Info) Description 08/18/2022 3:00 PM EDT Office Visit Obstetrics [place] [address] Jaime Hong MD Midline cystocele; Vaginal vault prolapse Social History Tobacco Use Types Packs/Day Years [...] Sign Reading Time Taken Comments Blood Pressure 137/80 08/18/2022 2:36 PM EDT Pulse 60 08/18/2022 2:36 PM EDT Temperature 36 ??C (96.8 ??F) 08/18/2022 2:36 PM EDT Respiratory Rate 16 08/18/2022 2:36 PM EDT Oxygen Saturation 99% 08/18/2022 2:36 PM EDT Inhaled Oxygen Concentration - - Weight 58.1 kg (128 lb) 08/18/2022 2:36 PM EDT Height 153.7 cm (5' 0.5) 08/18/2022 2:36 PM EDT Body Mass Index 24.59 08/18/2022 2:36 PM EDT documented in this encounter Progress Notes * Jaime Hong MD - 08/18/2022 3:00 PM EDT Female Pelvic Medicine and Reconstructive Surgery @ [facility] Patient Name: Lourdes Castro Patient Primary Care Provider: Gwen Stanford MD Patient Active Problem List Diagnosis Code ??? Trigger thumb of left hand M65.312 ??? Former smoker Z87.891 ??? Postmenopausal HRT (hormone replacement therapy) Z79.890 ??? Tendinitis M77.9 ??? Post-operative state Z98.890 Chief Complaint: prolapse History of Present Illness: Ms. Castro is a 67 y.o. old woman, seen at the kind request of Dr. Rossi. She presents for evaluation and assessment of prolapse of several years duration. She underwent TLH, BS in 2017 for suspicious uterine growth which was benign on final path. She reports ever since then she has not been able to do the activities she loves; weight lifting, biking, high impact sports. These activities cause pelvic discomfort - feels a bulge from the vagina. Pushingit back just results in immediate recurrence. Has tried multiple pessaries but all fell out. She reports her largest was of a 10 lbs child. She denies urinary incontinence. She reports good bowel function. Urinary tract history Patient denies history of recurrent urinary tract infection. Patient denies history of pyelonephritis. Patient denies history of urinary tract abnormality. Patient denies history of nephrolithiasis. Patient denies history of hematuria. Bladder Function Daytime frequency of voiding: Q3-4 hours Nocturia: x1/night Urinary incontinence: no Bladder irritants: Fluid intake: 80oz/day mostly water Caffeine intake: X1 cups/day Cigarette smoking (packs, time, if quit when): 20 pack years, quit 1995 Alcohol: x7/week Storage symptoms Urinary frequency Nocturia Stress urinary incontinence - leakage with exertion, cough/sneeze Urge urinary incontinence - leakage preceded immediately by urge to void Noctural enuresis - NOT IN ASSOCIATION WITH URGE Continuous urinary leakage Other: (e,g. giggle, intercourse-related) Bladder sensation x Normal - aware of filling and increased sensation up to desire to void Increased - feels an early and persistent need to void Reduced - aware of filling but NOT definite desire to void Absent - NO sensation of filling or need to void Non-specific - No specific bladder symptoms during filling or void Voiding symptoms x None Slow stream Spraying Intermittent stream - stop/start on > 1 occasion during void Straining - muscular effort to initiate, maintain OR improve stream Terminal dribble - prolonged final part of void Feeling of incomplete emptying Pelvic Organ Prolapse (POP) Any personally see or feel a vaginal bulge? yes What precipitates prolapse or symptoms of prolapse? Just there all the time now Previous treatment for POP (physical therapy, pessary, surgery)?: pessaries Bowel Function Number of bowel movements (day/week): daily Fecal incontinence (yes/no): no Number of fecal incontinent episodes (day/week): n/a Defecatory Dysfunction: Symptom Presence Symptom Presence NONE x Incomplete Emptying Straining Infrequent stools (<3 week) Splinting Abdominal discomfort Loose stools Defecatory urgency Hard stools Other Sexual Function Active?: yes Pain with intercourse?: no If yes, insertional/Deep? n/a Desire to retain sexual function? yes Last PAP smear: s/p hyst Past Medical History: Diagnosis Date ??? Abnormal uterine bleeding (AUB) 04/23/2016 ??? Depression ??? Former smoker 04/23/2016 ??? Postmenopausal HRT (hormone replacement therapy) 04/23/2016 ??? Tendinitis ??? Uterine mass 04/23/2016 Past Surgical History: Procedure Laterality Date ??? HYSTERECTOMY ??? PRO COLONOSCOPY, REMV LESN, SNARE 12/19/2013 COLONOSCOPY, POLYPECTOMY, REMOVAL LESION BY SNARE performed by Artur Treviño MD at [facility] ENDOSCOPY ? ? PRO LAPAROSCOPY W TOT HYSTERECTUTERUS <=250 GRAM W TUBE/OVARY N/A 05/05/2016 LAPAROSCOPY,TOTAL HYST, UTERUS<250GM, REM TUBE &/OR OVARY, ROBOTIC ASSIST (WRVU 15) performed by Jayde Aden MD at [facility] MAIN OR ??? TONSILLECTOMY OB History Para Term AB Living 4 2 2 0 0 2 SAB IAB Ectopic Multiple Live Births 0 0 0 0 0 # Outcome Date GA Lbr Raj/2nd Weight Sex Delivery Anes PTL Lv 4 3 2 Term 1 Term Outpatient Medications Marked as Taking for the 08/18/22 encounter (Office Visit) with Jaime Hong MD Medication Sig Dispense Refill ??? estradioL (Estrace) [...] 1MG = 1 Tablet(s), PO, Once daily,PRN Allergies Allergen Reactions ??? Codeine Anxiety ??? Penicillins Anaphylaxis ??? Prochlorperazine Other (See Comments) [place] sedated Social History Socioeconomic History ??? Marital status: Spouse name: Not on file ??? Number of children: Not on file ??? Years of education: Not on file ??? Highest education level: Not on file Occupational History ??? Not on file Tobacco Use ??? Smoking status: Former Years: 20.00 Types: Cigarettes Quit date: 04/23/1996 Years since quittin.3 ??? Smokeless tobacco: Never Vaping Use ??? Vaping Use: Never used Substance and Sexual Activity ??? Alcohol use: Yes Alcohol/week: 7.0 standard drinks Types: 7 Shots of liquor per week ??? Drug use: Not on file ??? Sexual activity: Not on file Other Topics Concern ??? Not on file Social History Narrative ??? Not on file Social Determinants of Health Financial Resource Strain: Not on file Food Insecurity: Not on file Transportation Needs: Not on file Physical Activity: Not on file Housing Stability: Not on file Family History Problem Relation Age of Onset ??? Breast Cancer Neg Hx Family history: denies history of gynecologic cancer ROS: Review of all other systems negative except for those mentioned above or indicated below: System Symptom Presence Constitutional Weight Loss Weight gain Eyes History of glaucoma ENT/Mouth Mouth sores/Dry mouth Cardiovascular Chest pain Leg swelling Respiratory Wheezing SOB GI Nausea/vomiting Abdominal pain Skin/Breast Breast masses Rash/ulcer Musculoskeletal Muscle weakness Trouble Walking Neurological Dizziness/falling Numbness Psychiatric Depression Anxiety Endocrine Abnormal thirst Hot flashes Hematologic Frequent bruising History of blood transfusions no Blood clots (DVT / PE) no Prior problems w/ anesthesia no Outside medical records reviewed: yes Data reviewed (images/urodynamic studies): To further delineate patient's urinary symptoms, a urinedip test and postvoid residual via bladder scanner were obtained. PVR: 155cc UA clear Results for orders placed or performed in visit on 08/18/22 Bladder Scanner Result Value Ref Range Bladder Scan (mL) 155 mL POCT urine dipstick Result Value Ref Range POC Sp [place] 1.002 1.002 - 1.030 POC pH, UA 7.0 5.0 - 8.5 POC Leuk, UA Neg. Negative - Negative POC Nitrite, UA Neg. Negative - Negative POC Protein, UA Neg. Negative - Negative mg/dL POC Glucose, UA Norm. Normal - Normal mg/dL POC Ketone, UA Neg. Negative - Negative POC Urobil, UA Norm. 0.2 - 1.0 mg/dL POC Bili, UA Neg. Negative - Negative POC Blood, UA Neg. Negative - Negative kalyan/uL OBJECTIVE: BP 137/80 Pulse 60 Temp 36 ??C (96.8 ??F) (Temporal) Resp 16 Ht 153.7 cm (5' 0.5) Wt 58.1 kg (128 lb) SpO2 99% BMI 24.59 kg/m?? General: normal appearing female, pleasant mood, normal speech Skin: skin of abdomen/pelvis normal appearance Respiratory: clear to auscultation bilaterally Neuro: no paraspinous tenderness; saddle sensory function (S2-4) intact in the pelvic area to touch Cardiac: regular rate and rhythm, no appreciated murmurs Gastrointestinal: lap scars, no palpable masses/organomegaly, soft/nontender, no appreciable hernia Musculoskeletal: levator ani tone (0-5): 1, levator ani contraction (0-5): 3, no levator tenderness; lower extremity motor 5/5 bilaterally Pelvic: Cough stress test (empty supine): Neg without prolapse support but positive with prolapse support External Genitalia: Vulva, Mcmullen's and Bartholin glands normal, urethra without tenderness or mass Vagina: See POPQ Atrophic epithelium (yes/no)?: no Discharge?: no Cervix: absent Bimanual (uterus/adnexa): no tenderness at cuff Rectovaginal: Enterocele: no Rectocele: no Anal sphincter: deferred POP Q Measurements: Aa +1 Ba +1 C -5 GH 4, 5 PB 2, 2 TVL 9 Ap -2 Bp -2 D n/a Impression: Ms. Castro is a .67 y.o. 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 We discussed options for management including: Continued observation, conservative management including pelvic floor exercises (supervised or unsupervised), pessary and/or procedures. The following surgical options were reviewed with the patient for treatment of her uterovaginal prolapse: 1. Vaginal hysterectomy with [place] ligament (uterosacral or sacrospinous) repair, with 70-80% success at 5 years out from surgery. 2. Laparoscopic mesh sacral colpopexy, with 90% success at 5 years out from surgery, but increased risks for complications of bowel obstruction, mesh erosion and longer anesthetic time. - She would prefer to avoid mesh prolapse repair - We discussed a laparoscopic uterosacral ligament suspension (would like to avoid buttock pain since is an avid biker) We discussed a laparoscopic Nicolas procedure using permanent sutures to support the mid-urethral andbladder neck. While the long-term outcomes of DANII cure are not quite as high as a sling according to the SISTEr trial and an RCT by Kevin et al, the improvements in DANII are significant (only 11% with bothersome DANII 4-8 years later according to Sharon et al.) and can be accomplished in a minimall y-invasive manner. She still would have a risk of post-operative voiding dysfunction and may require CIC for several weeks. - She may consider Nicolas but would prefer the most effective anti-incontinence procedure We reviewed risks of mesh erosion / extrusion for a sling are 3.3% in a very large series recently published. We discussed the February 2008 and November 2010 FDA warning regarding mesh placed transvaginally for prolapse repairs and the different applications for mesh in the pelvic area carry different risks. We discussed that the risks of slings is felt to be very low in comparison to trans-vaginal mesh repairs for prolapse. We discussed the recent AUGS / SUFU paper on the safety of slings. - She would lean towards a mid-urethral sling Recommendations: Based on the patients expressed goals for management I have recommended the following: ?? Return for pre-op in anticipation of [place] tissue prolapse repair and mid- urethral sling. She is aware I am leaving the practice and would be willing to meet with Dr. Burris if considering a lap Nicolas or other [place] tissue repair. I spent 60 minutes total with the patient, with 45 minutes of the time spent [id number] in discussing her diagnosis and reviewing options for treatment. Options Grid informational pamphlets given to patient Jaime Hong MD Division of Female Pelvic Medicine/Reconstructive Surgery CC: MD Gwen Garza * Yoon Benitez LNA - 08/18/2022 3:00 PM EDT Examination chaperoned by DEBO Rossi. documented in this encounter Plan of Treatment Upcoming Encounters Date Type Department Care Team (Late st Contact Info) Description 06/29/2024 1:40 PM EST Appointment Mammography/[place] [phone] Gwen Stanford MD [address] [place], [place] [address] 09/11/2024 10:00 AM EDT Office Visit Dermatology at [facility] [address] [place] [phone] Su Rosas MD [facility] [place] [address] documented as of this encounter Procedures Procedure Name Priority Date/Time Associated Diagnosis Comments BLADDER SCANNER Routine 08/18/2022 Midline cystocele Vaginal vault prolapse POCT URINE DIPSTICK Routine 08/18/2022 Midline cystocele Vaginal vault prolapse documented in this encounter Results * Bladder Scanner (08/18/2022) Bladder Scan (mL) 155 mL Jaime Hong MD URO PROC W/O RFL ORD ERABLES * POCT urine dipstick (08/18/2022) POC Sp [place] 1.002 1.002 - 1.030 POC pH, UA 7.0 5.0 - 8.5 POC Leuk, UA Neg. Negative - Negative POC Nitrite, UA Neg. Negative - Negative POC Protein, UA Neg. Negative - Negative mg/dL POC Glucose, UA Norm. Normal - Normal mg/dL POC Ketone, UA Neg. Negative - Negative POC Urobil, UA Norm. 0.2 - 1.0 mg/dL POC Bili, UA Neg. Negative - Negative POC Blood, UA Neg. Negative - Negative kalyan/uL Jaime Hong MD POINT OF CARE TEST O RDERABLES documented in this encounter Visit Diagnoses Diagnosis Midline cystocele Cystocele, midline Vaginal vault prolapse Unspecified prolapse of vaginal cruz documented in this encounter Care Teams Shipping And Receiving Specialist Relationship Specialty Start Date End Date Gwen Stanford MD [address] [place], [place] [address] PCP - General 04/15/10 documented as of this encounter
--- OUTSIDE RECORDS SUMMARY | 2024-05-19 00:35 | XMS_ITS | Encounter Summary ---
Author Organization [facility] Address [facility] [place] [address] Care Team Providers Care Customs Compliance Director Name Role Phone Gwen Stanford MD Primary Care Provider [phone] Reason for Visit * Reason Comments Procedure Encounter Details Date Type Department Care Team (Late st Contact Info) Description 08/17/2022 11:00 AM EDT Office Visit Dermatology at [facility] [address] [place] [phone] Su Rosas MD [facility] DR [address]TON[address] [place] [address] Kayy Wilkins RN Encounter for cosmetic procedure Social History Tobacco [...] * Patient Instructions* Kayy Wilkins RN - 08/17/2022 11:00 AM EDT Images from the original note were not included. Skin Medicinals: Azelaic Acid: 15%, Ivermectin: 1%, Metronidazole: 1% - Start applying 2-3 times per week in the morning and can increase to twice daily (morning and non-retinol evenings), as tolerated. We can discuss tretinoin (Retin-A, a retinol) next appointment. Amlactin Rapid Relief Most products that we apply to our skin (and even tap water) are a slightly higher pH than our skinwants to me. Your skin likes to be slightly acidic, and common/problematic skin conditions like rosacea, acne, dry skin and bacteria thrive in a more basic (higher pH) environment. We recommend applying Amlactin to help to reacidify the skin barrier. You will need only a very thin layer in warmer months, maybe a little more in the wintertime. The label does say that this cream can increase your risk of sunburn, which is not true. It also says to not use on the face, but that is also not true- you can and should apply to the face! It's normal for this product to sting minimally or cause flushing with initial application- should subside in 10 or so minutes. If you notice stringing, it is likely that your skin barrier is more basic and overtime as you continue to apply Amlactin and decrease your skin pH the stinging should stop- you can think of this like acclimating your skin to this product. You can purchase through [employer] or [employer]. We like the Rapid Relief blend, which has more ceramides than the regular Amlactin and smells a little nicer (though, still not great). documented in this encounter Progress Notes * Su Rosas MD - 08/17/2022 11:00 AM EDT Images from the original note were not included. DATE OF SERVICE: 08/17/2022 PROVIDER: Kayy Wilkins RN Supervising provider (indirect, onsite): Su Rosas MD Lourdes Castro : 1955 PATIENT PREFERENCES: -prefers to be called: Lourdes KHOURY Lourdes Castro is a 67 y.o. year old female. Here for Vbeam procedure 08/17/2022. Patient has had no recent changes in health, unexplained weight loss or skin concerns. COSMETIC TREATMENT VISIT -HSV prophylaxis? no -Recent sun exposure? no -, lactating or trying to conceive?: no ADR: Allergies Allergen Reactions ??? Codeine Anxiety ??? Penicillins Anaphylaxis ??? Prochlorperazine Other (See Comments) [place] sedated MEDS: Current Outpatient Medications Medication Sig [...] Su Rosas MD. Provider determined treatment settings. FOLLOW UP: COSMETIC COST TODAY: $350 deduct consultation = $250 Treatment delivered by Kayy Wilkins RN with [...] 06/29/2024 1:40 PM EST Appointment Mammography[place] [address] Gwen Stanford MD [facility] [address] [address] 09/11/2024 10:00 AM EDT Office Visit Dermatology at [facility] [address] [place] [phone] Su Rosas MD [facility] DR ANTONINA [place] [address] documented as of this encounter Visit Diagnoses Diagnosis Encounter for cosmetic procedure documented in this encounter Care Teams Customs Compliance Director Relationship Specialty Start Date End Date Gwen Stanford MD [address] [place] [address] PCP - General 04/15/10 documented as of this encounter
--- OUTSIDE RECORDS SUMMARY | 2024-05-19 00:35 | XMS_ITS | Encounter Summary ---
[place] [address] Care Team Providers Care Asset Protection Specialist Name Role Phone Gwen Stanford MD Primary Care Provider Reason for Referral * Diagnostic Test (Routine) - Closed Specialty Diagnoses / Procedures Referred By Letitia t Referred To Contact Radiology Diagnoses History of tobacco use Procedures CT Chest Screening Lung Cancer Gwen Stanford MD [facility] [address] [place] [address] [facility] [place] [address] Referral ID Status Reason Start Date Expiration Date V isits Requested Visits Authorized [id number] Closed Specialty Service Requested 07/01/2023 12/29/2024 1 1 Reason for Visit * Diagnostic Test (Routine) - Closed Specialty Diagnoses / Procedures Referred By Conthoang t Referred To Contact Radiology Diagnoses History of tobacco use Procedures CT Chest Screening Lung Cancer Gwen Stanford MD [address] [place] [address] [facility] [place] [address] Referral ID Status Reason Start Date Expiration Date V isits Requested Visits Authorized [id number] Closed Specialty Service Requested 07/01/2023 12/29/2024 1 1 Encounter Details Date Type Department Care Team (Late st Contact Info) Description 08/19/2023 10:23 AM EDT - 08/19/2023 11:59 PM EDT Hospital [place] [address] Gwen Stanford MD [address] [place], [place] [address] History of tobacco use Discharge Disposition: Home Social History Tobacco Use [...] 06/29/2024 1:40 PM EST Appointment Mammography/[place] [address] Gwen Stanford MD [address] [place], [place] [address] 09/11/2024 10:00 AM EDT Office Visit Dermatology at [facility] [address] [place] [phone] Su Rosas MD [facility] DR [address]TON[address] [place] [address] documented as of this encounter Procedures Procedure Name Priority Date/Time Associated Diagnosis Comments CT CHEST SCREENING LUNG CANCER Routine 08/19/2023 10:42 AM EDT History of tobacco use documented in this encounter Results * CT Chest Screening Lung Cancer (08/19/2023 10:42 AM EDT) Anatomical Region Laterality Modality Computed Tomogra phy Impressions 08/23/2023 4:44 PM EDT Lung-RADS 2 (Benign appearance) S: None. RECOMMENDATION: Return to CT screening in one year I have personally reviewed the image(s) and the resident's interpretation and agree with the findings, Nohemi Dumont MD at 08/23/2023 4:44 PM Thank you for letting us participate in the care of this patient. ??If you are a health care provider and have any questions regarding this report, please contact the number below. ??For patients who have questions please contact the health farm or ranch animal caretaker that requested your imaging first. ? Electronically signed by: Nohemi Dumont MD, [facility] ([phone]), at 08/23/2023 4:44 PM Narrative 08/23/2023 4:44 PM EDT EXAMINATION: CT CHEST SCREENING LUNG CANCER CLINICAL HISTORY: Asymptomatic but at high risk for lung cancer Z87.891, Personal history of nicotine dependence TECHNIQUE: Noncontrast, low-dose chest CT (LDCT) per [facility] lung cancer screening protocol. COMPARISON: None. FINDINGS: Lung-RADS Lung screening specific: Bilateral sub-6 mm pulmonary nodules (series 302 image 74, 330) Potentially significant incidental findings: None Other incidental findings: Known nonobstructing right kidney stone (see prior abdomen CT 01/15/2017). Stable mildly lobulated cyst at the liver dome. Procedure Note Nohemi Apodaca MD - 08/23/2023 EXAMINATION: CT CHEST SCREENING LUNG CANCER CLINICAL HISTORY: Asymptomatic but at high risk for lung cancer Z87.891, Personal history of nicotine dependence TECHNIQUE: Noncontrast, low-dose chest CT (LDCT) per [facility] lung cancerscreening protocol. COMPARISON: None. FINDINGS: Lung-RADS Lung screening specific: Bilateral sub-6 mm pulmonary nodules (series 302 image 74, 330) Potentially significant incidental findings: None Other incidental findings: Known nonobstructing right kidney stone (see prior abdomen CT01/15/2017). Stable mildly lobulated cyst at the liver dome. IMPRESSION Lung-RADS 2 (Benign appearance) S: None. RECOMMENDATION: Return to CT screening in one year I have personally reviewed the image(s) and the resident's interpretationand agree with the findings, Nohemi Dumont MD at 08/23/2023 4:44PM Thank you for letting us participate in the care of this patient. If youare a health care provider and have any questions regarding this report,please contact the number below. For patients who have questions please contactthe health farm or ranch animal caretaker that requested your imaging first. Gwen Stanford MD IMG CT ORDERABLES documented in this encounter Visit Diagnoses Diagnosis History of tobacco use Personal history of tobacco use, presenting hazards to health documented in this encounter Care Teams Asset Protection Specialist Relationship Specialty Start Date End Date Gwen Stanford MD [address] [place] [address] [address] [place] [address] PCP - General 04/15/10 documented as of this encounter
--- OUTSIDE RECORDS SUMMARY | 2024-05-19 00:35 | XMS_ITS | Encounter Summary ---
Author Organization [facility] [place] [address] Care Team Providers Care Coat Operator Name Role Phone Gwen Stanford MD Primary Care Provider [phone] Reason for Visit * Reason Comments Hair Loss Encounter Details Date Type Department Care Team (Late st Contact Info) Description 08/26/2023 8:30 AM EDT Office Visit Dermatology at [address] [place] [id number] Brittny Vick MD [facility] [place] [address] Hair loss; Perioral dermatitis Social History Tobacco Use Types [...] this encounter Patient Instructions * Patient Instructions* Aletha Silverio LPN - 08/26/2023 8:30 AM EDT Plan for Lourdes: Hair loss: Start OTC: Topical Minoxidil mens strength 5 % foam, apply to scalp once daily. Return in 6 months for follow up hair loss. Perioral Dermatitis: Continue Rx: Skin [facility] Azelaic acid 15%, Ivermectin 1%, Metronidazole 1%cream BID apply topically daily documented in this encounter Progress Notes * Brittny Vick MD - 08/26/2023 8:30 AM EDT Images from the original note were not included. DEPARTMENT OF DERMATOLOGY Medical Dermatology Clinic Provider: Brittny Vick MD Patient's preferred name Lourdes Preferred contact method for results [x]Phone []myD-H []Letter Detailed phone message OK? Y Are there any other people with whom we may discuss your care? N Past Medical History Date, location, treatment Melanoma N Dysplastic nevi N SCC N BCC N AKs N UV Exposure & Protection + history of blistering sunburn Other relevant past medical history Perioral dermatitis- tried metronidazole gel in the past. Rosacea [...] y.o. Patient returns to clinic today for hair loss, looking for oral treatment. She has noticed significant thinning over last five years. Her instructor hairspring recommended seeing a anesthesiologist attending. She went through a divorce five years ago and thinks that started it all. She has noticed hair everywhere (brush, shower drain, etc). Overall hair density hasdecreased. Thinning in the front. Has not tried any oral or topical medications No new medication changes. Takes estradiol and clonazepam. Reports recent repeated blood work by PCP that was wnl. -She has a history of rosacea / perioral dermatitis- currently has a rash around the mouth that comes and goes, she has been using a skin medicinals triple cream for rosacea that Su Rosas MD gave her. Washes with clinique face wash. Moisturizes with cetaphil. Last visit at Dermatology: 11/05/2022 Last visit with this provider: Visit date not found Medications: Reviewed in eD-H Allergies: Reviewed in eD-H Skin Examination: Focused skin examination of the scalp and face was normal with the exception of the findings below. Assessment/Plan # Multifactorial hair loss, androgenetic alopecia and telogen effluvium - decreased density at the vertex scalp and frontotemporal scalp with few short regrowing hairs without erythema, scaling, or scarring. Hair pull test negative. - Discussed findings, common triggers. Discussed rare reported side effect of hair loss with clonazepam and estradiol. - Discussed treatment options including topical minoxidil vs oral minoxidil or oral spironolactone - Patient would like to proceed with topical treatment first. - Start OTC topical minoxidil 5% foam or solution, apply to scalp once daily. Discussed goal is to decrease hair loss and stabilization. Discussed common side effects # Periorificial Dermatitis - Scattered papules and pink patches in perioral distribution (around mouth and adjacent to nostrils) on the face. - Discussed diagnosis, possible triggers, and treatment with topical creams or oral doxycycline. She would like to avoid systemic medication at this time - Dorado decision made to continue [facility] Rx:Azelaic acid 15%, Ivermectin 1%, Metronidazole 1% cream BID ( checked and 6 refills remain) Other: N/A OTC skin products discussed RTC: 6 months for follow up hair loss, sooner as needed []Note routed to family centered specialist []Recall placed in scheduling system [x]Appointment scheduled at checkout Scribe attestation: ALETHA SILVERIO LPN has performed the documentation for this encounter in the presence of and acting as a scribe for Brittny Vick MD. I performed the above scribed service and agree with the accuracy of the documentation in this encounter. Reviewed and signed by: Brittny Vick MD Dermatology [facility] documented in this encounter Plan of Treatment Upcoming Encounters Date Type Department Care Team (Late st Contact Info) Description 06/29/2024 1:40 PM EST Appointment Mammography/[place] [address] Gwen Stanford MD [address] [place] [address] 09/11/2024 10:00 AM EDT Office Visit Dermatology at [facility] [address] [phone] Su Rosas MD [facility] DR ANTONINA [place] [address] documented as of this encounter Visit Diagnoses Diagnosis Hair loss Alopecia, unspecified Perioral dermatitis Rosacea documented in this encounter Care Teams Coat Operator Relationship Specialty Start Date End Date Gwen Stanford MD [address] [place], [place] [address] PCP - General 04/15/10 documented as of this encounter
--- OUTSIDE RECORDS SUMMARY | 2024-05-19 00:35 | XMS_ITS | Encounter Summary ---
[place] [address] Care Team Providers Care Auto Body Repair Technician Name Role Phone Gwen Stanford MD Primary Care Provider [phone] Encounter Details Date Type Department Care Team (Late st Contact Info) Description 11/17/2019 9:34 AM EDT - 11/17/2019 11:59 PM EDT Hospital Encounter Mammography/[place] [phone] Gwen Stanford MD [address] [place] [address] Visit for screening mammogram Discharge Disposition: Home [...] 06/29/2024 1:40 PM EST Appointment Mammography/[place] [address] Gwen Stanford MD [address] [place] [address] [address] [facility] [address] [place] [address] 09/11/2024 10:00 AM EDT Office Visit Dermatology at [address] [phone] Su Rosas MD [facility] DR ANTONINA [place] [address] documented as of this encounter Procedures Procedure Name Priority Date/Time Associated Diagnosis Comments MAMMO SCREENING CAD AND CEDRICK BILATERAL Routine 11/17/2019 9:51 AM EDT Visit for screening mammogram documented in this encounter Results * Mammo Screening Cad and Cedrick Bilateral (11/17/2019 9:51 AM EDT) Anatomical Region Laterality Modality Breast Bilateral Mammography Narrative 11/17/2019 10:06 AM EDT BILATERAL MAMMOGRAPHY REASON FOR EXAM: [...] mammogram documented in this encounter Care Teams Auto Body Repair Technician Relationship Specialty Start Date End Date Gwen Stanford MD [address] [place] [address] PCP - General 04/15/10 documented as of this encounter
--- OUTSIDE RECORDS SUMMARY | 2024-05-19 00:35 | XMS_ITS | Encounter Summary ---
Author Organization [facility] Address [facility] [place] [address] Care Team Providers Care Assistant Statistician Name Role Phone Gwen Stanford MD Primary Care Provider [phone] Encounter Details Date Type Department Care Team (Late st Contact Info) Description 11/05/2022 3:15 PM EDT Office Visit Dermatology at [facility] [address] [place] [phone] Su Rosas MD [facility] DR ANTONINA [place] [address] Encounter for cosmetic procedure Social History Tobacco [...] encounter Patient Instructions * Patient Instructions* Brissa Moon, [facility] - 11/05/2022 3:15 PM EDT MANDELIC ACID PEELS- $150 Mandelic acid is a type of alpha hydroxy (AHA) acid, similar to glycolic acid and lactic acid. Our 40% Mandelic Acid Peel by Maya is formulated with additional anti-inflammatory factors that contribute to its gentle-but- powerful effect Mandelic acid is unique from other AHAs because of the following properties: Large particle size slows down penetration and keeps exfoliation from occurring more deeply where redness and discoloration can be triggered by other peels. Antibacterial and bactericidal properties strengthen its effect against acne and rosacea Ability to exfoliate without irritation makes it effective against discoloration (like melasma) andsafe on skin of color These properties explain why it is a preferred choice for rosacea, melasma, skin of color (normallyat risk of darkening from peels), acne and patients who are new to peels. Mandelic Acid peels may remain a part of a good maintenance program or may be a bridge therapy to more aggressive treatments.In cases of more significant photoaging, we may suggest transitioning to gradually more aggressive peels after an initial series of mandelic acid peels. Is there any downtime? Because mandelic acid peels are so mild, there is very little downtime associated with the peel. Your skin may be pink, dry, and flaky in some places, but overall, the side effects from mandelic peels are easily covered with makeup. Visible peeling tends to be very subtle and resolves within 2-3 days, so you won???t need to take days off from work or social activities. We typically suggest the first peel is done no sooner than one week before any big work or social commitment in case of any unexpected (rare) reaction. Acne patients can experience some ???post-peel purging?? , as with any peel. This is minimized whenthe skin is preconditioned and maintained by a skincare regimen that includes an effective retinoid(tretinoin, adapalene, Retin A, Differin or medical grade retinol). When will I see results? With each peel you should see gradual improvements. The improvements build and last longer as you do more peels. Within just 3 days you may see a freshness to your skin and that improves over the following 2-4 weeks. How often should I get a peel? You can get mandelic acid peels as frequently as once a week. Most patients do an initial series of3-6 peels (scheduled every 1-4 weeks) and then maintain with a peel every 2-6 months. Responses andfrequency of maintenance depend on variable factors like exposure to sun and rosacea triggers, use of skincare (especially a retinoid) at home and severity of the underlying problem being treated. How does this work with the laser treatments I have received for Rosacea? Many of our patients use Mandelic Acid peels to bridge (and extend) the time in between laser treatments for rosacea or sun damage. Patients can plateau in their benefit from laser treatments and arepleasantly surprised by how they improve when they switch to peels. The reverse may also be true and so peels and lasers are both important weapons against rosacea and stubborn redness. Examples of commonly followed programs for redness and rosacea are: Laser treatment (Vbeam, IPL or ND:Yag) every month x 2-3 months then Mandelic Acid Peel every 1-4 months with a yearly laser treatment OR Mandelic Acid Peel every 2-4 weeks x 3-6 peels then one laser treatment, alternating with one peel every 3 months What about Mandelic Acid peels for Acne? Mandelic acid peels are great for acne when there is concomitant discoloration and/or sensitivity of the skin. As an AHA, mandelic acid does not penetrate oil and therefore may require effective pre-peel skin conditioning to control oil production. Salicylic Acid peels may be a more effective option for some but becauses these two ingredients work so differently (Salicylic Acid penetrating oil glands better and Mandelic Acid exerting a stronger effect on skin bacteria) they can work synergistically and are often alternated in a person???s peel program. How do Mandelic Acid peels fit into an overall anti-aging program? Mandelic acid is a great way to make the process of repairing the skin look more like ???rejuvenation?? (with all its brilliance) than renovation (with all its disarray). We use the Mandelic Acid peels to stimulate, smooth and correct the surface of the skin. And we can boost the deeper layers of the skin with collagen stimulating laser treatments. Many of our patients adhere to a retinoid-basedskincare regimen and receive Mandelic Acid peels alternating with Non Ablative Fractional Laser treatments. Treatment frequency ranges from monthly to every 3 months. Your provider can specify a regimen that meets your needs. documented in this encounter Progress Notes * Su Rosas MD - 11/05/2022 3:15 PM EDT Images from the original note were not included. PROVIDER: Su Rosas MD DESKTOP SUPPORT CONSULTANT: MARY Ramos Lourdes Castro : 1955 PATIENT PREFERENCES: -prefers to be called: Lourdes KHOURY Lourdes Castro is a 67 y.o. year old female. Here for V-Beam Concerns from previous visit?: Assessment of the skin post 3 treatments, will she need more treatments? Patient would like to talk about her robust reaction to the last vbeam treatments. Patient would also like to retouch on neurotoxin that has previously been discussed in visits, patient is wondering if it would help soften the 11s and lines on the forehead. COSMETIC TREATMENT VISIT -Questions or concerns today? Listed above -Any change in health or new diagnosis since last visit?: No -HSV prophylaxis? No -, lactating or trying to conceive?: No ADR: Allergies Allergen Reactions Codeine Anxiety Penicillins Anaphylaxis Prochlorperazine Other (See Comments) [place] sedated MEDS: Current Outpatient Medications Medication Sig Dispense Refill tretinoin (Retin-A) 0.05 % Cream Apply topically nightly. 45 g 11 estradioL (Estrace) 1 mg tablet Take 2 mg by mouth daily. ibuprofen (Advil) 200 mg tablet Take 600 mg by mouth every 8 hours as needed for Pain. acetaminophen (TYLENOL) 325 mg Tablet Take 2 tablets by mouth every 6 hours. (Patient taking differently: Take 650 mg by mouth every 6 hours as needed.) 30 tablet 1 clonAZEpam (KLONOPIN) 1 mg tablet 1MG = 1 Tablet(s), PO, Once daily,PRN No current facility-administered medications for this visit. TREATMENT MAPS: DIAGNOSIS/ASSESSMENT: # Chemoprevention/correction: Emphasized value of retinoid-based [...] #: 408 Paid: $350 deduct consultation Tx By:LAURIE Notes: first treatment, patient seen in conjunction with provider, Su Rosas MD. Provider determined treatment settings. Date: 09/21/2022 Laser: VBeam Area: face Spot: 10mm Energy(J): 8.50 Pulse Duration: 10ms Pulse #: ~350 Paid: $350 Tx By: LAURIE Notes: Provider, Su Rosas MD, authorized treatment settings. Indirect, onsite supervision of procedure. Date: 11/05/2022 Laser: Vbeam Area: full face Spot: 10mm Energy(J): 8.50 Pulse Duration: 10ms Pulse #: 257 Paid: $350 Tx By:RL Notes: Patient is aware to plan for a continuation of MA peels FOLLOW UP RETURN TO CLINIC: PRN for MA Peel $150 COSMETIC COST TODAY: $350.[address] Rosas I am documenting this encounter acting as the scribe for and in the presence of Su Rosas MD, MARY Ramos I performed the above scribed service and agree with the accuracy of the documentation in this encounter, MD Su Mohr MD Department of Dermatology documented in this encounter Plan of Treatment Upcoming Encounters Date Type Department Care Team (Late st Contact Info) Description 06/29/2024 1:40 PM EST Appointment Mammography/[place] [address] Gwen Stanford MD [address] [facility] 1 [place], [place] [address] 09/11/2024 10:00 AM EDT Office Visit Dermatology at [address] [place] [address] Su Rosas MD [facility] DR ANTONINA [place] [address] documented as of this encounter Visit Diagnoses Diagnosis Encounter for cosmetic procedure documented in this encounter Care Teams Assistant Statistician Relationship Specialty Start Date End Date Gwen Stanford MD [address] [place], [place] [address] PCP - General 04/15/10 documented as of this encounter
--- OUTSIDE RECORDS SUMMARY | 2024-05-19 00:35 | XMS_ITS | Encounter Summary ---
Author Organization [facility] [place] [address] Care Team Providers Care Lining Inserter Name Role Phone Gwen Stanford MD Primary Care Provider [phone] Encounter Details Date Type Department Care Team (Latest Contact Info) Description 11/05/2022 Travel Social History Tobacco Use Types Packs/Day [...] 06/29/2024 1:40 PM EST Appointment Mammography[place] [address] Gwen Stanford MD [address] [place] [address] [address] [facility] 1 [place], [place] [address] 09/11/2024 10:00 AM EDT Office Visit Dermatology at [facility] [address] [place] [phone] Su Rosas MD [facility] DR ANTONINA [place] [address] documented as of this encounter Visit Diagnoses Not on filedocumented in this encounter Care Teams Lining Inserter Relationship Specialty Start Date End Date Gwen Stanford MD [address] [place] [address] PCP - General 04/15/10 documented as of this encounter
--- OUTSIDE RECORDS SUMMARY | 2024-05-19 00:35 | XMS_ITS | Encounter Summary ---
Author Organization [facility] Address [facility] [place] [address] Care Team Providers Care Fire Equipment Operator Name Role Phone Gwen Stanford MD Primary Care Provider [phone] Encounter Details Date Type Department Care Team (Late st Contact Info) Description 10/13/2023 2:00 PM EDT Office Visit Dermatology at [facility] [address] [place] [phone] Su Rosas MD [facility] [place] [address] Encounter for cosmetic procedure Social History Tobacco [...] Patient Instructions* Brissa Moon CMA - 10/13/2023 2:00 PM EDT [facility] COSMET[facility] PULSED DYE LASER (PDL)/ V-BEAM PATIENT INFORMATION TREATMENT QUOTE: $450.00 Tiwari is per treatment, this is not a package tiwari. Prices are subject to change. This quote expires in one year. PDL Frequently Asked Questions (FAQs) Pulsed dye laser (PDL), also known as vascular laser or V-Beam, is a light-based treatment that targets blood vessels and redness. PDL, typically performed as a series of 3 to 5 treatments, requires minimal downtime and discomfort to reduce redness from rosacea, scarring, or birthmarks (port wine birthmark). What can PDL treat? PDL is a light-based treatment that targets blood vessels and redness. It can treat many skin conditions, including: Redness Rosacea Blood vessels and telangiectasias Vascular growths Birthmarks (e.g., port wine birthmark) Scars Angiomas Venous lakes Warts How does it work? A handheld device delivers light energy in pulses to the treatment area. PDL energy selectively targets red to purple discoloration, destroying or reducing superficial blood vessels and improving overall redness with each treatment. Surrounding tissue remains unharmed during the treatment. How many PDL treatments are needed? Typically, 3 to 5 initial treatments, each spaced 4 to 6 weeks apart, are recommended. This varies depending on your baseline skin condition and your treatment goals. After series of initial treatments, patients will continue to return to clinic based on their treatment goals. Maintenance treatments occur once to several times per year, depending on patient preference and skin condition. Is there a downtime from treatment? Most patients return to work and normal activities immediately following treatment, but it is typically advised to not schedule your appointment within two weeks of major social events. Does it hurt? Treatments are usually less than 5 minutes in duration and consist of multiple pulses. Each pulse feels like a brief stinging or snapping sensation that is mildly-moderately uncomfortable. Some patients report a feeling of a mild sunburn on the treatment area following treatment. How long will results last? The duration of benefit depends on your baseline condition, skincare regimen, degree of redness andamount of vasculature. Higher sun exposure may warrant more frequent treatments. Sun protection andan effective skincare regimen can increase the benefit received from each treatment. Treatment frequency is an individual decision. What are the side effects from PDL? Expected and/or common side effects: Skin warmth, redness and mild swelling for 1-2 days Temporary hair loss in the treatment areas Bruising and swelling ranging from minimal to moderate Uncommon, temporary side effects: Bruising lasting several weeks Gore, blisters and/or scabs lasting 1 to 2 weeks Focal automatic dispenser mechanic or darker areas of the skin Extremely rare side effects: Scarring [facility] or permanent skin discoloration Eye injury, if proper eye protection is not utilized Before and After Treatment Instructions: Before Treatment: Notify your provider before your scheduled treatment if: You are , planning to become or are You are garcia or are returning from an area of high sun exposure You have a history of cold sores or have an active cold sore You are taking any new medications or have any new skin condition 2 - 4 weeks before your treatment: Talk to your treatment team about your skin care prior to treatment- the best results happen when your skin has been conditioned and prepped for your treatment Avoid self tanning the area being treated Be vigilant to avoid sun exposure in the 2 weeks prior to your treatment; this includes wearing mineral based sunscreens, applying at least 30 minutes prior to sun exposure and reapplying at least every two hours and wearing a hat with sun exposure 1 week before your treatment: Stop products containing retinoids (e.g., retinols, Retin-A, tretinoin, Differin or Adapalene), vitamin C or skin acids (salicylic acid or glycolic acid). Check with your treatment team if you are unsure about products to continue using. Day of Treatment: You can take up to 600mg ibuprofen prior to the treatment to help maximize comfort Shave the treatment area, if applicable After Treatment: For redness and swelling, you may apply cold compresses to the treatment area for 20 minutes at a time (recommending 2 hours off following cold therapy) Sun protection and good skin care are quiroz to long-lasting treatment results, it is recommended to: Be especially diligent to avoid sun exposure in the first 2 weeks following your treatment. Wear a zinc or titanium oxide-containing SPF 30+ daily. Apply 30 minutes prior to sun exposure, andreapply at least every 2 hours. Wear a wide brimmed hat with prolonged sun exposure. Avoid activities where the sun reflects off snow or water. Skin Care: You may apply makeup and sunscreen immediately following treatment You may resume your normal skincare routine 3 to 5 days post treatment as long as there is no blistering or skin breakage. This can include retinoids, skin acids and gentle exfoliators When to contact your treatment team: If the skin is broken or blistered apply plain Vaseline or Aquaphor and contact your treatment team. Be extra careful to avoid friction, do not apply bandages or adhesive to the wounded area. For questions or concerns, please contact your treatment provider or team. For routine questions orconcerns Wednesday through Wednesday 8:00am until 4:30pm, please may send a [employer] message (preferred routeof communication during business hours) or call the clinic at [phone] (Cosmetic medical assistant secretary) or [phone] (Dermatology Main Line). Please allow for up to 3 business days for routine questions. For concerns requiring immediate attention on weekends or evenings, please call the main hospital line at [phone] and ask to speak to the on-call dat instructor. Information for the FAQ and before/after care retrieved from the [employer] of [employer]at[employer] (AACD.org) documented in this encounter Progress Notes * Su Rosas MD - 10/13/2023 2:00 PM EDT Images from the original note were not included. Department of Dermatology Cosmetic Dermatology Provider: Su Rosas MD Corporate Tutor: Brissa Moon CMA COSMETIC TREATMENT VISIT: Patient's preferred name: Lourdes Preferred contact method: [x]Phone [x]myD-H []Letter Detailed phone message OK?: Yes Medical History: HSV? : N , lactating or trying to conceive?: N Social History: Occupation: Hobbies: Other: HPI Lourdes Castro is a 68 y.o. year old female. Here for VBeam Questions or concerns for today? Concerned with her post treatment effect. She took an over the counter pain reliever and plans to ice her face afterwards to avoid swelling next day. Last visit in department: 08/26/2023 Last visit with provider: 11/05/2022 Medications: Reviewed in eD-H Allergies: Reviewed in eD-H TREATMENT MAP(S): DIAGNOSIS/ASSESSMENT: # Chemoprevention/correction: Emphasized value of retinoid-based [...] 369 Paid: $450 Tx By:Su Rosas MD COSMETIC COST TODAY: $450 vBeam Return To Clinic: 6 months full face $450 vBeam [x]Note routed to medical assistant secretary []Recall placed in scheduling system []Appointment scheduled at checkout Treatment delivered by Su Rosas MD I, Brissa Moon CMA has performed the documentation [...] 06/29/2024 1:40 PM EST Appointment Mammography/[place] [address] Gwen Stanford MD [address] [place] [address] 09/11/2024 10:00 AM EDT Office Visit Dermatology at [facility] [address] [place] [phone] Su Rosas MD [facility] [place]TON[place] [address] documented as of this encounter Visit Diagnoses Diagnosis Encounter for cosmetic procedure documented in this encounter Care Teams Fire Equipment Operator Relationship Specialty Start Date End Date Gwen Stanford MD [address] [place] [address] PCP - General 04/15/10 documented as of this encounter
--- OUTSIDE RECORDS SUMMARY | 2024-05-19 00:35 | XMS_ITS | Encounter Summary ---
[place] [address] Care Team Providers Care Log Pond Worker Name Role Phone Gwen Stanford MD Primary Care Provider Encounter Details Date Type Department Care Team (Late st Contact Info) Description 09/15/2017 9:32 AM EDT - 09/15/2017 11:59 PM EDT Hospital [place] [phone] Gwen Stanford MD [address] [place] [address] Encounter for screening mammogram for breast cancer [...] 06/29/2024 1:40 PM EST Appointment Mammography/[place] [address] Gwen Stanford MD [address] [place] [address] [address] [facility] 1 [place] [address] 09/11/2024 10:00 AM EDT Office Visit Dermatology at [address] [phone] Su Rosas MD [facility] [address] [place]TON[place] [address] documented as of this encounter Procedures Procedure Name Priority Date/Time Associated Diagnosis Comments MAMMO SCREENING CAD AND CEDRICK BILATERAL Routine 09/15/2017 9:48 AM EDT Encounter for screening mammogram for breast cancer documented in this encounter Results * Mammo Screening Cad and Cedrick Bilateral (09/15/2017 9:48 AM EDT) Anatomical Region Laterality Modality Breast Bilateral Mammography Narrative 09/15/2017 9:59 AM EDT Bilateral mammography Reason for exam: routine [place] [facility] [place] Technique: CC and MLO views were obtained of each breast using standard 2-D mammography as well as 3-D tomosynthesis. Computer aided detection was used. Comparison: This is compared with prior images. Findings: The breasts are heterogeneously dense, which may obscure small masses. There are no suspicious microcalcifications, masses, or areas of distortion. The pattern is stable. Stable benign-appearing bilateral focal asymmetries. Conclusion: No mammographic evidence of malignancy. Recommendation: Routine screening. BI-RADS Category 2: Benign findings. * ??The [employer] and The Society of [...] earlier screening and breast MRI are appropriate. Gwen Stanford MD IMG MAMMO ORDERABLES documented in this encounter Visit Diagnoses Diagnosis Encounter for screening mammogram for breast cancer documented in this encounter Care Teams Log Pond Worker Relationship Specialty Start Date End Date Gwen Stanford MD [address] [facility] [place] [address] PCP - General 04/15/10 documented as of this encounter
--- OUTSIDE RECORDS SUMMARY | 2024-05-19 00:35 | XMS_ITS | Encounter Summary ---
Author Organization [facility] Address [address] [facility] [place] [address] Care Team Providers Care Ladle Repairman Name Role Phone Gwen Stanford MD Primary Care Provider [phone] Encounter Details Date Type Department Care Team (Late st Contact Info) Description 11/20/2021 11:00 AM EDT Office Visit Dermatology at [facility] [address] [place] [address] Mamie Bradley MD Rosacea Social History Tobacco Use Types Packs/Day Years [...] as of this encounter Progress Notes * Mamie Bradley MD - 11/20/2021 11:00 AM EDT Images from the original note were not included. DEPARTMENT OF DERMATOLOGY Medical Dermatology Clinic Provider: Mamie Bradley MD Patient's preferred name Lourdes Preferred contact method for results [x]Phone []myD-H []Letter Detailed phone message OK? Yes Are there any other people with whom we may discuss your care? No Past Medical History Date, location, treatment Melanoma No Dysplastic nevi No SCC No BCC No AKs No UV Exposure & Protection Other relevant past medical history Perioral dermatitis Family History Details; Unknown adopted Melanoma NMSC Other relevant family history Social History Occupation: Retired Hobbies: Other: PRE-PROCEDURE SCREENING Details Allergy to lidocaine, epinephrine, Dermabond, chlorhexidine, or adhesives No Bleeding disorder or blood thinners No Pacemaker, defibrillator, deep brain stimulator, cochlear implant No History of Present Illness: Lourdes Castro is a 66 y.o. Patient is new and self- referred to the clinic for a rash. Patient reports the rash is located on her forehead. Patient reports it started 5 years ago but around her lips which has resolved but had spread to the forehead. Occasionally itchy. Patient has been treating with Metronidazole 0.75% gel every day. Medications: Reviewed in eD-H Allergies: Reviewed in eD-H Skin Examination: Focused skin examination of the face, neck, chest, abdomen, back, bilateral upper extremities was normal with the exception of the findings below. Assessment/Plan #. Rosacea EXAM: on the central face, there are light red patches with intervening telangiectasias, on the forehead there are a few papules and pustules. - Etiology, chronic relapsing/remitting course and treatment options discussed. 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 Azelaic acid 15%, Ivermectin 1%, Metronidazole 1% cream BID through [facility]. - Cosmetic consultation with Dr. Rosas 12/2021 for laser therapy for telangiectatic component. RTC: 6 weeks for f/u rosacea - coordinated with upcoming cosmetic appointment []Note routed to school attendance secretary []Recall placed in scheduling system []Appointment scheduled at checkout Scribe attestation: Zara Drew has performed the documentation for this encounter in the presence of and acting as a scribe for Mamie Bradley MD. I performed the above scribed service and agree with the accuracy of the documentation in this encounter. Reviewed and signed by: Mamie Bradley MD Dermatology [facility] Staff shed hand: Brittny Vick MD Dermatology [facility] * Brittny Vick MD - 11/20/2021 11:00 AM EDT I was the supervising physician working with the dermatology resident during this patient's visit. The level of resident supervision for this patient visit was indirect supervision with direct supervision immediately available (definition: [facility] Policy Statement on Graduate Medical Education, Sup ervision of Graduate Medical Trainees). I was immediately available to the resident physician for questions and discussion regarding this visit. I have reviewed the encounter note details and level of service. Brittny Vick MD Staff Physician documented in this encounter Plan of Treatment Upcoming Encounters Date Type Department Care Team (Late st Contact Info) Description 06/29/2024 1:40 PM EST Appointment Mammography/[place] [address] Gwen Stanford MD [address] [place] [address] 09/11/2024 10:00 AM EDT Office Visit Dermatology at [address] [address] Su Rosas MD [facility] DR ANTONINA [place] [address] documented as of this encounter Visit Diagnoses Diagnosis Rosacea documented in this encounter Care Teams Ladle Repairman Relationship Specialty Start Date End Date Gwen Stanford MD [address] [place], [place] [address] PCP - General 04/15/10 documented as of this encounter
--- OUTSIDE RECORDS SUMMARY | 2024-05-19 00:35 | XMS_ITS | Encounter Summary ---
Author Organization [facility] Address [facility] [place] [address] Care Team Providers Care Bmw Sales Consultant Name Role Phone Gwen Stanford MD Primary Care Provider [phone] Encounter Details Date Type Department Care Team (Late st Contact Info) Description 09/23/2021 Telephone Dermatology at [facility] [address] [place] [phone] Su Rosas MD [facility] DR ANTONINA [place] [address] Social History Tobacco Use Types Packs/Day Years [...] * Telephone Encounter - Alva Mcelroy - 09/24/2021 10:12 AM EDT Left msg to schedule cosmetic * Telephone Encounter - Bev Beryl R - 09/23/2021 12:32 PM EDT Patient contacted the clinic yesterday (09/21) and left a voicemail requesting a call back at [phone] Rosas. documented in this encounter Plan of Treatment Upcoming Encounters Date Type Department Care Team (Late st Contact Info) Description 06/29/2024 1:40 PM EST Appointment Mammography/[place] [address] Gwen Stanford MD [address] [place] [id number] 09/11/2024 10:00 AM EDT Office Visit Dermatology at [facility] [address] [place] [address] Su Rosas MD [facility] [address] ANTONINA [place] [address] documented as of this encounter Visit Diagnoses Not on filedocumented in this encounter Care Teams Bmw Sales Consultant Relationship Specialty Start Date End Date Gwen Stanford MD [address] [place], [place] [id number] PCP - General 04/15/10 documented as of this encounter
--- OUTSIDE RECORDS SUMMARY | 2024-05-19 00:35 | XMS_ITS | Encounter Summary ---
Author Organization [facility] [place] [address] Care Team Providers Care Funeral Sales Manager Name Role Phone Gwen Stanford MD Primary Care Provider [phone] Encounter Details Date Type Department Care Team (Latest Contact Info) Description 08/19/2023 Travel Social History Tobacco Use Types Packs/Day [...] 06/29/2024 1:40 PM EST Appointment Mammography/[place] [address] Gwen Stanford MD [address] [place] [address] [address] [facility] 1 [place], [place] [address] 09/11/2024 10:00 AM EDT Office Visit Dermatology at [facility] [address] [place] [phone] Su Rosas MD [facility] DR [address]TON[place] [address] documented as of this encounter Visit Diagnoses Not on filedocumented in this encounter Care Teams Funeral Sales Manager Relationship Specialty Start Date End Date Gwen Stanford MD [address] [place] [address] PCP - General 04/15/10 documented as of this encounter
--- OUTSIDE RECORDS SUMMARY | 2024-05-19 00:35 | XMS_ITS | Encounter Summary ---
[place] [address] Care Team Providers Care Bacon De Rinder Name Role Phone Gwen Stanford MD Primary Care Provider Encounter Details Date Type Department Care Team (Late st Contact Info) Description 12/31/2021 1:44 PM EDT - 12/31/2021 11:59 PM EDT Hospital Encounter Mammography[place] [phone] Gwen Stanford MD [address] [place], [place] [address] Encounter for screening mammogram for breast cancer [...] 06/29/2024 1:40 PM EST Appointment Mammography[place] [address] Gwen Stanford MD [address] [place] [address] 09/11/2024 10:00 AM EDT Office Visit Dermatology at [address] [phone] Su Rosas MD [facility] DR ANTONINA [place] [address] documented as of this encounter Procedures Procedure Name Priority Date/Time Associated Diagnosis Comments MAMMO SCREENING CAD AND CEDRICK BILATERAL Routine 12/31/2021 2:02 PM EDT Encounter for screening mammogram for breast cancer documented in this encounter Results * Mammo Screening Cad and Cedrick Bilateral (12/31/2021 2:02 PM EDT) Anatomical Region Laterality Modality Breast Bilateral Mammography Narrative 12/31/2021 2:36 PM EDT BILATERAL MAMMOGRAPHY REASON FOR EXAM: Screening [...] BIRADS CATEGORY 1: NEGATIVE Electronically signed by: WANG MAI MD Gwen Stanford MD IMG MAMMO ORDERABLES documented in this encounter Visit Diagnoses Diagnosis Encounter for screening mammogram for breast cancer documented in this encounter Care Teams Bacon De Rinder Relationship Specialty Start Date End Date Gwen Stanford MD [address] [facility] 1 [place] [address] PCP - General 04/15/10 documented as of this encounter
--- OUTSIDE RECORDS SUMMARY | 2024-05-19 00:35 | XMS_ITS | Encounter Summary ---
Author Organization [facility] Address [facility] [place] [address] Care Team Providers Care Rod Hanger Name Role Phone Gwen Stanford MD Primary Care Provider [phone] Encounter Details Date Type Department Care Team (Late st Contact Info) Description 09/21/2022 Telephone Dermatology at [facility] [address] [place] [phone] Su Rosas MD [facility] DR ANTONINA [place] [address] Social History Tobacco Use Types Packs/Day Years [...] encounter Miscellaneous Notes * Telephone Encounter - Elizabet Lopes - 09/21/2022 8:30 AM EDT Patient has a stye in her eye that she states is almost gone she has an appt today and is wonderingif she can still come she has to leave her house at 9am to get here in time please call her at [phone] documented in this encounter Plan of Treatment Upcoming Encounters Date Type Department Care Team (Late st Contact Info) Description 06/29/2024 1:40 PM EST Appointment Mammography/[place] [address] Gwen Stanford MD [address] [place], [place] [address] 09/11/2024 10:00 AM EDT Office Visit Dermatology at [facility] [address] [place] [phone] Su Rosas MD [facility] [address] ANTON[place] [address] documented as of this encounter Visit Diagnoses Not on filedocumented in this encounter Care Teams Rod Hanger Relationship Specialty Start Date End Date Gwen Stanford MD [address] [place], [place] [address] PCP - General 04/15/10 documented as of this encounter
--- OUTSIDE RECORDS SUMMARY | 2024-05-19 00:35 | XMS_ITS | Encounter Summary ---
[place] [address] Care Team Providers Care Purchasing Assistant Name Role Phone Gwen Stanford MD Primary Care Provider [phone] Reason for Visit * Reason Comments Post Hospital Discharge Encounter Details Date Type Department Care Team (Late st Contact Info) Description 05/27/2016 3:30 PM EST Office Visit [place] [phone] Jayde Aden MD Uterine mass; Post-operative state Social History Tobacco Use Types Packs/Day Years [...] Sign Reading Time Taken Comments Blood Pressure 133/72 05/27/2016 3:32 PM EST Pulse 64 05/27/2016 3:32 PM EST Temperature 36.4 ??C (97.5 ??F) 05/27/2016 3:32 PM ES T Respiratory Rate 16 05/27/2016 3:32 PM EST Oxygen Saturation 99% 05/27/2016 3:32 PM EST Inhaled Oxygen Concentration - - Weight 60.7 kg (133 lb 13.1 oz) 05/27/2016 3:32 PM EST Height - - Body Mass Index 25.28 05/05/2016 10:08 AM EST documented in this encounter Progress Notes * Hannah Ward - 05/27/2016 3:30 PM EST Gynecologic-Oncology Clinic Note: ID: Lourdes Castro is a 61 y.o. female with hx postmenopausal bleeding, s/p RATLH, bilateral salpingectomy with ovarian preservation, washings on 05/05/16, who presents for post-operative check. S: Lourdes has several concerns today. She endorses terrible energy since the surgery. She has not been exercising. She did have chest pain on 05/22 and was advised to go to the ED by this office but PCP said she did not need to go in the absence of shortness of breath. She states the pain moved around but was mostly at the left sternal border. It lasted a few days. She denies the pain currently. She denies shortness of breath. She is eating and drinking normally. She is having daily bowel movements and taking senna twice daily. She stopped taking miralax after initially terrible constipation.She is having cramps when she needs to stool. She has a few spots of vaginal bleeding a day that started in the last few days after it had initially stopped. No abdominal pain but she feels something inside that was not there before. Her abdominal muscles do not feel the same to her. She is not using pain medication at this time. She also wonders why she has slept well through the night. She has worse hot flashes since surgery and did stop taking ezekiel-pro before surgery. Physical Exam: Vitals: 05/27/16 1532 BP: 133/72 Pulse: 64 Resp: 16 Temp: 36.4 ??C (97.5 ??F) Oxygen saturation: 99% Physical Exam: Gen: sitting in chair, NAD HEENT: normocephalic, atraumatic, moist mucus membranes Cardiac normal s1 and s2, no murmurs Pulm CTAB, no wheezes Abd: soft, nontender, four well-healed surgical incisions, surgical glue removed, no rebound or guarding Ext: nontender, no edema Pathology: Surgical Pathology 05/05/16 DIAGNOSIS A - Right and left fallopian tubes: ?? 1. Unremarkable fallopian tubes B - Uterus and cervix: ?? 1. Chronic cervicitis and squamous metaplasia ?? 2. Frequent endocervical tunnel clusters ?? 3. Benign endometrium ?? 4. Adenomyosis ?? 5. Multiple leiomyomas Cytology: DIAGNOSIS 05/05/16 Negative for Malignancy A/P: Lourdes Castro is a 61 y.o. female with hx postmenopausal bleeding and an enlarging uterine massfor which she underwent a RATLH, bilateral salpingectomy with ovarian preservation, washings on 05/05/16, who presents for post-operative check. Pathology benign but demonstrated adenomyosis and multiple leiomyomas. Recovering appropriately post-operatively. Reviewed normal vaginal spotting until six weeks post-operatively. Okay to participate in light snowshoeing or jog and take a bath or hot tub. No ongoing chest pain and saturating appropriately on room air - likely related to musculoskeletal pain vs pleurisy. Discussed discontinuing pericolace in favor of colace to avoid ongoing senna use. In terms of hot flashes and not sleeping, discussed etiology related to stopping prempro and normal post-menopausal changes. We would not recommend restarting hormone replacement therapy but sleep aids including melatonin are available and increasing exercise would likely improve some of these symptoms. Reviewed benign pathology with the patient and her . Seen and examined with Dr. Aden, Attending Patternmaker Plaster Oncologist. Hannah Ward MD PGY2 I have seen and examined the patient and reviewed and edited the resident's above history and I agree with the details as written. The assessment and plan were formulated in discussion with me and I agree with them as documented. Jayde Aden MD documented in this encounter Plan of Treatment Upcoming Encounters Date Type Department Care Team (Late st Contact Info) Description 06/29/2024 1:40 PM EST Appointment Mammography/[place] [address] Gwen Stanford MD [facility] [address] [place] [address] 09/11/2024 10:00 AM EDT Office Visit Dermatology at [facility] [address] [place] [address] Su Rosas MD [facility] [address] [place] [address] documented as of this encounter Visit Diagnoses Diagnosis Uterine mass Other specified symptom associated with female genital organs Post-operative state Other postprocedural status documented in this encounter Care Teams Purchasing Assistant Relationship Specialty Start Date End Date Gwen Stanford MD [address] [place] [address] PCP - General 04/15/10 documented as of this encounter
--- OUTSIDE RECORDS SUMMARY | 2024-05-19 00:36 | XMS_ITS | Encounter Summary ---
Author Organization [facility] Address [address] [place] [address] Care Team Providers Care Online User Experience Strategist Name Role Phone Gwen Stanford MD Primary Care Provider [phone] Reason for Visit * Reason Onset Date Comments Other 09/20/2017 Encounter Details Date Type Department Care Team (Late st Contact Info) Description 09/20/[address] [facility] Pelvic Medicine and Reconstructive Surgery - Medical Office [address] [address] Janet Hunt MD [address] [place] [address] Medical Office [facility], [facility] [address] [place] [address] Other Social History Tobacco Use Types Packs/Day Years Used Date Smoking Tobacco: Former Cigarettes Q uit: 05/24/1997 Smokeless Tobacco: Never Comments No Sex and Gender Information Value Date Recorded Sex Assigned at Not on file Legal Sex Female 18:20 EST Gender Identity Not on file Sexual Orientation Not on file documented as of this encounter Miscellaneous Notes * Telephone Encounter - Siobhan Gunn - 09/20/2017 1513 EDT Patient calling to schedule her physical therapy prior to her urodynamics documented in this encounter Plan of Treatment Not on file documented as of this encounter Visit Diagnoses Not on filedocumented in this encounter Care Teams Online User Experience Strategist Relationship Specialty Start Date End Date Gwen Stanford MD [address] [place] [address] PCP - General 08/11/11 documented as of this encounter
--- OUTSIDE RECORDS SUMMARY | 2024-05-19 00:36 | XMS_ITS | Encounter Summary ---
[place] [address] Care Team Providers Care House Decorator Name Role Phone Gwen Stanford MD Primary Care Provider [phone] Encounter Details Date Type Department Care Team (Late st Contact Info) Description 10/05/2011 1:11 PM EDT - 10/05/2011 11:59 PM EDT Hospital [place] [phone] CLINIC, Gwen Calix MD [address] [place] [address] [address] [place], [place] [phone] Discharge Disposition: Home Social History Tobacco Use Types Packs/Day Years Used Date Smoking Tobacco: Never Assessed Sex and Gender Information Value Date Recorded Sex Assigned at Not on file Gender Identity Not on file Sexual Orientation Not on file documented as of this encounter Medications at Time of Discharge Medication Sig Dispensed Refills Start Date End Date clonAZEpam (KLONOPIN) 1 mg tablet 1MG = 1 Tablet(s), PO, Once daily,PRN 01/12/2006 methylphenidate (RITALIN) 10 mg tablet 10MG = 1 Tablet(s), PO, Three times daily 07/14/2006 10/19/2012 norethindrone-ethinyl estradiol (LOESTRIN FE 06/12, ,) 1-20 mg-mcg per tablet 1 Tablet(s), PO, Once daily 01/12/2006 10/19/2012 loratadine (CLARITIN) 10 mg tablet 10MG = 1 Tablet(s), PO, Once daily 01/12/2006 10/19/2012 documented as of this encounter Plan of Treatment Upcoming Encounters Date Type Department Care Team (Late st Contact Info) Description 06/29/2024 1:40 PM EST Appointment Mammography[place] [address] Gwen Stanford MD [address] [place] [address] 09/11/2024 10:00 AM EDT Office Visit Dermatology at [facility] [address] [place] [address] Su Rosas MD [facility] [address] ANTONINA [place] [address] documented as of this encounter Procedures Procedure Name Priority Date/Time Associated Diagnosis Comments MAMMO SCREENING CAD BILATERAL Routine 10/05/2011 1:32 PM EDT documented in this encounter Results * MAMMO DIGITAL BILATERAL SCREENING WITH CAD (10/05/2011 1:32 PM EDT) Anatomical Region Laterality Modality Breast Bilateral Mammography 10/05/2011 1:32 PM EDT Narrative 10/07/2011 9:41 AM EDT BILATERAL MAMMOGRAPHY ?? REASON FOR EXAM: Screening ?? TECHNIQUE: Cranio-caudal (CC) and mediolateral oblique (MLO) views of both breasts obtained with direct digital capture. The exam was evaluated by CAD Version 8.3.17. In addition to the routine 2D imaging this exam was also performed with 3D tomographic imaging in MLO and CC projections. ?? FINDINGS: This is a negative mammogram (ACR Category 1). There is a stable fibroglandular pattern without significant change as compared to prior studies. There is no mammographic evidence of cancer. ? The breasts are heterogeneously dense which may limit mammographic sensitivity for the detection of malignancy. ? CONCLUSION ?? This is a NEGATIVE mammogram (ACR Category 1). Routine screening mammography is recommended with the frequency dependent on the patient's age and breast cancer risk factors. ?? A letter has been sent to this patient by [facility]. Procedure Note Celine Flores MD - 10/07/2011 BILATERAL MAMMOGRAPHY REASON FOR EXAM: Screening TECHNIQUE: Cranio-caudal (CC) and mediolateral oblique (MLO) views of both breasts obtained with direct digital capture. The exam was evaluated by[employer] Version 8.3.17. In addition to the routine 2D imaging this exam was also performed with 3D tomographic imaging in MLO and CC projections. FINDINGS: This is a negative mammogram (ACR Category 1). There is a stable fibroglandular pattern without significant change as compared to priorstudies. There is no mammographic evidence of cancer. The breasts are heterogeneously dense which may limit mammographicsensitivity for the detection of malignancy. CONCLUSION This is a NEGATIVE mammogram (ACR Category 1). Routine screeningmammography is recommended with the frequency dependent on the patient's age and breastcancer risk factors. A letter has been sent to this patient by the [facility]. Gwen Stanford MD IMG MAMMO ORDERABLES documented in this encounter Visit Diagnoses Not on filedocumented in this encounter Care Teams House Decorator Relationship Specialty Start Date End Date Gwen Stanford MD [address] [place] [address] [address] PCP - General 04/15/10 documented as of this encounter
--- OUTSIDE RECORDS SUMMARY | 2024-05-19 00:36 | XMS_ITS | Encounter Summary ---
Author Organization [facility] Address [address] [place] [address] Care Team Providers Care Private Pilot Name Role Phone Gwen Stanford MD Primary Care Provider [phone] Encounter Details Date Type Department Care Team (Late st Contact Info) Description 07/05/2020 Lab Requisition [facility] Pathology & Laboratory Medicine - [facility] [address] [place] [address] Outr Resulting Lab, Provider Social History Tobacco Use Types Packs/Day Years Used Date Smoking Tobacco: Former Cigarettes Q uit: 05/24/1997 Smokeless Tobacco: Never Interpersonal Safety Answer Date Record ed Physically Hurt Never 12/24/2019 Verbally Threaten Not on file 12/24/2019 Comments No Sex and Gender Information Value Date Recorded Sex Assigned at Not on file Legal Sex Female 18:20 EST Gender Identity Not on file Sexual Orientation Not on file documented as of this encounter Plan of Treatment Not on file documented as of this encounter Procedures Procedure Name Priority Date/Time Associated Diagnosis Comments ZZCOVID-19 TEST [facility] PCR Today 07/05/2020 11:11 EST COVID-19 TESTING Routine 07/05/2020 11:1 1 EST documented in this encounter Results * COVID-19 TEST [facility] PCR (07/05/2020 11:11 EST) Swab ENTIRE NASOPHARYNX / Unknown 07/05/2020 11:11 EST 07/05/2020 16:20 EST us Provider Outr Resulting Lab MICROBIOLOGY - GENER AL ORDERABLES Final Result [facility] [address] [place] [address] * COVID-19 TESTING (07/05/2020 11:11 EST) COVID-19 rt-PCR Result Negative Negative 07/06/2020 11:40 EST [facility] Comment: This test has not been FDA cleared or approved. This test has been authorized by FDA under an EUA for use by authorized laboratories. This test has been authorized only for detection of nucleic acid from 2019-nCoV, not for any other viruses or pathogens. This test is only authorized for the duration of the declaration that circumstances exist justifying the authorization of emergency use of in vitro diagnostic tests for detection and/or diagnosis of 2019-nCoV under section 564(b)(1) of Act, 21 U.S.C ?? 360bbb-3(b) (1), unless the authorization is terminated or revoked sooner. Negative results do not preclude 2019-nCoV infection and should not be used as the sole basis for treatment or other patient management decisions. Negative results must be combined with clinical observations, patient history, and epidemiological information. Testing was performed using the seth SARS-CoV-2 assay ([employer] on the Seth 6800 System Performing Lab Seth [address] [facility] 07/06/2020 11:40 EST [facility] Swab 07/05/2020 11:1 1 EST 07/05/2020 16:20 EST us Provider Outr Resulting Lab MICROBIOLOGY - GENER AL ORDERABLES Final Result [facility] [address] [place] [address] documented in this encounter Visit Diagnoses Not on filedocumented in this encounter Care Teams Private Pilot Relationship Specialty Start Date End Date Gwen Stanford MD [address] [place] [address] PCP - General 08/11/11 documented as of this encounter
--- OUTSIDE RECORDS SUMMARY | 2024-05-19 00:36 | XMS_ITS | Encounter Summary ---
Author Organization [facility] Address [address] [place] [address] Care Team Providers Care Manager Creative Name Role Phone Gwen Stanford MD Primary Care Provider [phone] Encounter Details Date Type Department Care Team (Late st Contact Info) Description 10/20/2012 Results Only [facility] - [facility] [address] [place], [place] [address] Gwen Stanford MD [address] [place] [address] [address] [place] [phone] Social History Tobacco Use Types Packs/Day Years Used Date Smoking Tobacco: Never Assessed Comments Unknown Sex and Gender Information Value Date Recorded Sex Assigned at Not on file Legal Sex Female 18:20 EST Gender Identity Not on file Sexual Orientation Not on file documented as of this encounter Plan of Treatment Not on file documented as of this encounter Procedures Procedure Name Priority Date/Time Associated Diagnosis Comments PAP TEST- RESULT ONLY Routine 10/20/2012 0:00 EDT documented in this encounter Results * PAP TEST- RESULT ONLY (10/20/2012 0:00 EDT) Pathology Report: CYTOPATHOLOGY REPORT Reports generated via electronic interface contain original data; however they are lacking the format of the original report. Caution should be taken when reading/interpreti ng unformatted reports. Name: ? LOURDES CASTRO ? Accession #: ? [id number] ? : ? 1955 (Age: 57) ??F ?Collect Date: ? 10/20/2012 ? Location: ? [facility] ? Receive Date: ? 10/24/2012 ? Provider: GWEN STANFORD MD Copy to: ? Final Report SPECIMEN ADEQUACY ? Satisfactory for Evaluation - transformation zone component absent GENERAL CATEGORIZATION ? Epithelial Cell Abnormality INTERPRETATION ? Squamous Cell Abnormality - Atypical squamous cells, undetermined significance (ASC-US). EDUCATIONAL NOTES/RECOMMENDATI ONS ? [facility] recommends following ASCCP's 2012 Updated Consensus Guidelines for the Management of Abnormal Cervical Cancer Screening Tests and Cancer Precursors (JLGTD, 2013; 17(5):S1-S27). ??Consensus guidelines are available online at www.asccp.org. Menstrual/Pregnanc y Status: ??Post Menopausal Hormonal/Contracep tive status: Yes Previous Gynecologic Pathology: HPV: + 02/2012 ASC-US: 07/2011 Specimen/Source: ??Pap Test, Cervix/Endocervix, ThinPrep Imaging System with manual evaluation Document reviewed and electronically signed by: ? RADHA MARTINEZ MD ? Report ??Date: 10/31/2012 11:52 HPV with Pap Test ? Date Ordered: ? 10/31/2012 ? Status: ?? Signed Out ?Date Complete: ? 11/02/2012 ? By: ??System Interface ? Date Reported: ? 11/02/2012 ? Interpretation RESULT: Positive for high or intermediate risk HPV. E6 OR E7 mRNA from one or more types of HPV types 16,18,31, 33,35,39,45,51,52, 56,58,59,66, and 68 is detected by body liner mediated amplification. High and intermediate risk HPV types are associated with most squamous intraepithelial lesions and cervical cancers. Comments Document reviewed and electronically signed by: ? System Interface ? Report date: 11/02/2012 By the signature above, the attending physician certifies that he/she has personally conducted a gross and/or microscopic examination of the described specimens and rendered or confirmed the above diagnosis. End of Report [facility] 10/20/2012 10/24/2012 us Gwen Stanford MD PATHOLOGY ORDERABLES Final Result [facility] [address] [place] [address] documented in this encounter Visit Diagnoses Not on filedocumented in this encounter Care Teams Manager Creative Relationship Specialty Start Date End Date Gwen Stanford MD [address] [place] [address] PCP - General 08/11/11 documented as of this encounter
--- OUTSIDE RECORDS SUMMARY | 2024-05-19 00:36 | XMS_ITS | Encounter Summary ---
Author Organization [facility] Address [address] [place] [address] Care Team Providers Care Casing Cooker Name Role Phone Gwen Stanford MD Primary Care Provider [phone] Reason for Visit * Reason Comments Follow-up Encounter Details Date Type Department Care Team (Latest Contact Info) Description 10/06/2017 13:[address] [facility] Pelvic Medicine and Reconstructive Surgery - Medical Office [address] [id number] Janet Hunt MD [address] [facility] Medical Office [facility] [address] [place] [address] Female genital prolapse, unspecified type (Primary Dx) Social History Tobacco Use Types Packs/Day Years [...] Sign Reading Time Taken Comments Blood Pressure - - Pulse - - Temperature - - Respiratory Rate - - Oxygen Saturation - - Inhaled Oxygen Concentration - - Weight 59 kg (130 lb) 10/06/2017 1335 EDT Height 154.9 cm (5' 1) 10/06/2017 1335 EDT Body Mass Index 24.56 10/06/2017 1335 EDT documented in this encounter Progress Notes * Janet Hunt MD - 10/06/2017 1345 EDT Pt with post hysterectomy vaginal prolapse. Wants to schedule anterior and posterior repair. Pt concerned that her preop Urodynamics isn't until December. Pt is not interested in having surgery until late summer. Will schedule A&P repair, possible TVT pending Urodynamics. 25 mins spent discussing pre and postop activity restrictions. documented in this encounter Plan of Treatment Not on file documented as of this encounter Visit Diagnoses Diagnosis Female genital prolapse, unspecified type- Primary documented in this encounter Care Teams Casing Cooker Relationship Specialty Start Date End Date Gwen Stanford MD [address] [place] [id number] PCP - General 08/11/11 documented as of this encounter
--- OUTSIDE RECORDS SUMMARY | 2024-05-19 00:36 | XMS_ITS | Encounter Summary ---
Author Organization [facility] [place] [address] Care Team Providers Care Clinical Pharmacy Specialist Name Role Phone Gwen Stanford MD Primary Care Provider [phone] Encounter Details Date Type Department Care Team (Late st Contact Info) Description 12/19/2013 10:00 AM EDT - 12/19/2013 11:00 AM EDT [place] [id number] Artur Montez MD [facility] [place] [address] COLONOSCOPY, POLYPECTOMY, REMOVAL LESION BY SNARE (WRVU 4.57) Social History Tobacco Use Types Packs/Day Years Used Date Smoking Tobacco: Former Smokeless Tobacco: Never Alcohol Use Standard Drinks/Week Comments Yes 7 (1 standard drink = 0.6 oz pur e alcohol) Sex and Gender Information Value Date Recorded Sex Assigned at Not on file Gender Identity Not on file Sexual Orientation Not on file documented as of this encounter Last Filed Vital Signs Vital Sign Reading Time Taken Comments Blood Pressure 123/71 12/19/2013 10:49 AM EDT Pulse 58 12/19/2013 10:49 AM EDT Temperature 36.6 ??C (97.9 ??F) 12/19/2013 9:21 AM ED T Respiratory Rate 18 12/19/2013 10:49 AM EDT Oxygen Saturation 99% 12/19/2013 10:49 AM EDT Inhaled Oxygen Concentration - - Weight - - Height - - Body Mass Index - - documented in this encounter Discharge Instructions * Discharge Instructions* Salina Pemberton, RN - 12/19/2013 10:50 AM EDT Colonoscopy and polyp removal What to expect after the procedure You may feel a little more gassy or bloated than usual, this is normal. You should expect the return of normal bowel function in the next 2 to 3 days. Because some polyps were removed, you may see a little blood with the next few bowel movements, this should be a small amount ( less than a few tablespoons) and will resolve on it's own. ACTIVITY Because of the sedation that you received Your judgement and reaction time are effected ?? Go home and rest for the remainder for the day. You may resume your normal activities tomorrow ?? Change from one position to the next slowly because you may lose your balance unexpectedly. ?? Be careful on stairs, as you may be unsteady. ?? Avoid strenuous activity for 48 to 72 hrs FOR THE NEXT 24 HRS ?? DO NOT DRIVE OR OPERATE MACHINERY ?? DO NOT DRINK ALCOHOLIC BEVERAGES ?? DO NOT SIGN LEGAL DOCUMENTS ?? If you are a smoker: DO NOT SMOKE WHILE YOU ARE ALONE Diet ?? Start by eating small portions of foods that ordinarily will not upset your stomach, avoid gas producing foods for the next few days. ?? Be gentle with what you choose to start with ?? A soft diet may be helpful for the next 3 days as this may help to keep your stools soft. ?? Drink plenty of fluids ( unless your doctor has told you not to). Medicines Avoid medicines that influence the way your blood clots for the next week. These would include anti-inflammatory medicine, such as ibuprofen( Advil, Motrin) and naproxen ( Aleve). If you need something for discomfort, Tylenol (Acetaminophen) is safe if used as directed. Your Doctor will tell you when to restart your prescribed blood thinners The IV site-- slight tenderness, or redness is normal, you can use warm compresses if you get concerned. If the tenderness +/or redness increases or foul drainage and a red streak occurs, please contact your PCP immediately. When should you call for help? Call 911 anytime you think you may need emergency care. For example If you pass out (loss of consciousness) If you pass maroon or bloody stools If you have severe belly pain Call your healthcare provider or seek immediate medical care if: Your stools are black or tar like Your stools have streaks of blood that is more pronounced with each BM You have belly pain, or your belly is swollen and firm You vomit You have a fever You are very dizzy Watch closely for changes in your health, and be sure to contact your doctor if you have any problems. Your Doctor will let you know when you will need your next colonoscopy. The results of your test and your risk for colorectal cancer will help your doctor decide how often you need to be checked. [facility] [phone] 8a-5p Same Day Endo [phone] 7a-8p Otherwise contact [phone] and ask to speak to the manager retail sales environmental construction engineer Follow up care is a quiroz part of your treatment and safety. Be sure to make and go to all appointments, and call your doctor if you are having problems. Discharge instructions reviewed with patient who expresses understanding documented in this encounter Medications at Time of Discharge Medication Sig Dispensed Refills Start Date End Date clonAZEpam (KLONOPIN) 1 mg tablet 1MG = 1 Tablet(s), PO, Once daily,PRN 01/12/2006 estrogen, conjugated,-medroxyproges terone (PREMPRO) 0.45-1.5 mg per tablet Take 1 tablet by mouth daily. 05/27/2016 documented as of this encounter H&P Notes * Artur Montez MD - 12/19/2013 9:33 AM EDT Gastroenterology and Hepatology Pre-Procedure History and Physical Exam Procedure: Colonoscopy: Indication: screen Patient Active Problem List Diagnosis Code ??? Trigger thumb of left hand 727.03 EXAM: HEENT: Airway examined, oropharynx clear LUNGS: Clear to auscultation HEART: Regular rate and rhythm, normal S1, S2 ABDOMEN: Normal bowel sounds, soft, non tender, non distended, A/P Proceed with the planned endoscopic procedure. Risks and benefits of the procedure explained to the patient. Consent signed. documented in this encounter Miscellaneous Notes * Miscellaneous - Provider, Scanning - 12/19/2013 9:53 PM EDT * Miscellaneous - Provider, Scanning - 12/19/2013 4:29 PM EDT documented in this encounter Plan of Treatment Upcoming Encounters Date Type Department Care Team (Late st Contact Info) Description 06/29/2024 1:40 PM EST Appointment Mammography/[place] [address] Gwen Stanford MD [address] [place] [address] [address] 09/11/2024 10:00 AM EDT Office Visit Dermatology at [address] [phone] Su Rosas MD [facility] DR ANTONINA [place] [address] documented as of this encounter Procedures Procedure Name Priority Date/Time Associated Diagnosis Comments SURGICAL PATHOLOGY REPORT Routine 12/19/2013 10:38 AM EDT SPECIMEN TO PATHOLOGY Routine 12/19/2013 10:38 AM EDT COLONOSCOPY, POLYPECTOMY, REMOVAL LESION BY SNARE (WRVU 4.57) 12/19/2013 9:52 AM EDT screening COLONOSCOPY Routine 12/19/2013 9:39 AM EDT documented in this encounter Results * Surgical Pathology Report (12/19/2013 10:38 AM EDT) Final Diagnosis ? [facility] ? Provider: ?? ARTUR MONTEZ ?Pt. Name: ?? LOURDES PULIDO ? Acc #: ?[id number] ?Pt. ? Col Date: ?? 12/19/2013 ? /Sex: ?1955,(58 years),Female ? Rec Date: ?? 12/19/2013 ? LOC: ?4T ? SURGICAL PATHOLOGY ? ---Pathologic Diagnosis--- ? A - Sigmoid polyp: ? Hyperplastic polyp. ? CR-0 ; CR-PX ? 12/20/13 ? JRP ? 12/20/13 Verified by: ? Carla HENAO, Skinny Rao ? Pathologist ? (Electronic Signature) ? The attending pathologist whose signature appears on this report has ? reviewed all diagnostic slides and has edited the gross and/or ? microscopic portion of the report in rendering the final pathologic ? diagnosis. ? ---Gross Description--- ? A - Labeled/Fixative : 2 mm polyp sigmoid, formalin. ? Quantity/Size: Single, 0.2 x 0.1 cm. ? Tissue Description: Soft, garcia-pink tissue. ? Sections/Process ing: (T1) ??pps ? ---Clinical Information--- ? Specimen Submitted: ? A - 2 mm polyp sigmoid ? Clinical History: ? Patient with diminutive polyp ? Clinical Diagnosis: ? Same 12/20/2013 2:[address] [facility] GI Biopsy 12/19/2013 10:3 8 AM EDT 12/19/2013 10:38 AM EDT Artur Montez MD PATHOLOGY/CYTOLOGY O JAYLIN Performing Organization Address [facility] Co de Phone Number [facility] [address] * Specimen to Pathology (surgical or derm) (12/19/2013 10:38 AM EDT) AP Specimen 12/19/2013 10:3 8 AM EDT 12/19/2013 10:38 AM EDT Narrative HANY DUNN - 12/19/2013 10:38 AM EDT Specimen requisition ordered. ??Separate Pathology report to follow Artur Montez MD PATHOLOGY/CYTOLOGY O JAYLIN Performing Organization Address [facility] de Phone Number HANY DUNN * COLONOSCOPY (12/19/2013 9:39 AM EDT) COLONOSCOPY [facility] Endoscopy Patient Name: Lourdes Pulido ? Procedure Date: 12/19/2013 9:39 AM ? N: [id number] ? Date of : 1955 ? Age: 58 ? Order #: [id number] ? Procedure: ? Colonoscopy Indications: ? Screening for colorectal malignant ? neoplasm Providers: ? Artur Montez MD, Janette Ortiz ? MARY Carrasco, Debora Dietrich, ? Under Presser Referring : ?Gwen Stanford MD Medicines: ? Midazolam 4.5 [...] ?- Await pathology results. ? _ Artur Montez MD 12/19/2013 10:40 AM This report has been signed electronically. Number of Addenda: 0 Note Initiated On: 12/19/2013 9:39 AM PROVATION 12/19/2013 9:39 AM EDT Gwen Stanford MD GENERAL SURGICAL ORD ERABLES PROVATION documented in this encounter Visit Diagnoses Not on filedocumented in this encounter Administered Medications Inactive Administered Medications - up to 3 most recent administrations Medication Order MAR Action Action Date Dose Rate Site fentaNYL 50mcg/mL injection ONCE PRN, Starting on Wed12/19/13 at 1000, Until Wed12/19/13 at 1205, Pain, Intra-Operative (Intra-Procedure), Routine Given 12/19/2013 10:22 AM EDT 25 mcg Given 12/19/2013 10:20 AM EDT 25 mcg Given 12/19/2013 10:17 AM EDT 50 mcg lactated ringers infusion 100 mL/hr, Intravenous, CONTINUOUS, Starting on Wed12/19/13 at 0945, Until Wed12/19/13 at 1205, Endoscopy (Day of Procedure) New Bag 12/19/2013 9:25 AM EDT 100 mL/hr 100 mL/hr midazolam (PF) (VERSED) 1 mg/mL injection ONCE PRN, Starting on Wed12/19/13 at 1000, Until Wed12/19/13 at 1205, Sleep, Intra-Operative (Intra-Procedure), Routine Given 12/19/2013 10:22 AM EDT 0.5 mg Given 12/19/2013 10:20 AM EDT 0.5 mg Given 12/19/2013 10:19 AM EDT 0.5 mg documented in this encounter Active and Recently Administered Medications Times are shown in EDT. Continuous Medication Order 12/17/2013 12/18/2013 12/19/2013 lactated ringers infusion (CANCELED) 100 mL/hr, Intravenous, CONTINUOUS, Starting on Wed12/19/13 at 0945, Until Wed12/19/13 at 1205, Endoscopy (Day of Procedure) 0925 (New Bag - Prov ider: Dominguez Haddad RN) PRN Medication Order 12/17/2013 12/18/2013 12/19/2013 fentaNYL 50mcg/mL injection (CANCELED) ONCE PRN, Starting on Wed12/19/13 at 1000, Until Wed12/19/13 at 1205, Pain, Intra-Operative (Intra-Procedure), Routine 1000 (Given - Provid er: Janette Carrasco RN)1010 (Given - Provider: Janette Carrasco RN)1017 (Given - Provider: Janette Carrasco RN)1020 (Given - Provider: Janette Carrasco RN)1022 (Given - Provider: Janette Carrasco RN) midazolam (PF) (VERSED) 1 mg/mL injection (CANCELED) ONCE PRN, Starting on Wed12/19/13 at 1000, Until Wed12/19/13 at 1205, Sleep, Intra-Operative (Intra-Procedure), Routine 1000 (Given - Provid er: Janette Carrasco RN)1010 (Given - Provider: Janette Carrasco RN)1017 (Given - Provider: Janette Carrasco RN)1019 (Given - Provider: Janette Carrasco RN)1020 (Given - Provider: Janette Carrasco RN)1022 (Given - Provider: Janette Carrasco RN) documented in this encounter Care Teams Clinical Pharmacy Specialist Relationship Specialty Start Date End Date Gwen Stanford MD [address] [place] [address] PCP - General 04/15/10 documented as of this encounter
--- OUTSIDE RECORDS SUMMARY | 2024-05-19 00:36 | XMS_ITS | Encounter Summary ---
Author Organization [facility] Address [address] [place] [address] Care Team Providers Care Cnc Maintenance Technician Name Role Phone Gwen Stanford MD Primary Care Provider [phone] Encounter Details Date Type Department Care Team (Late st Contact Info) Description 03/13/2013 Results Only [facility] Laboratory Services - [facility] ([facility] [address] [place], [place] [id number] Gwen Satnford MD [address] [place] [address] [address] [place] [phone] Social History Tobacco Use Types Packs/Day Years [...] Diagnosis Comments PAP TEST- RESULT ONLY Routine 03/13/2013 0:00 EDT documented in this encounter Results * PAP TEST- RESULT ONLY (03/13/2013 0:00 EDT) Pathology Report: CYTOPATHOLOGY REPORT Reports generated via electronic interface contain original data; however they are lacking the format of the original report. Caution should be taken when reading/interpreti ng unformatted reports. Name: ? LOURDES CASTRO ? Accession #: ? [id number] ? : ? 1955 (Age: 58) ??F ?Collect Date: ? 03/13/2013 ? Location: ? [facility] ? Receive Date: ? 03/15/2013 ? Provider: GWEN STANFORD MD Copy to: ? Final Report SPECIMEN ADEQUACY ? Satisfactory for Evaluation - transformation zone component present GENERAL CATEGORIZATION ? Epithelial Cell Abnormality INTERPRETATION ? Squamous Cell Abnormality - Atypical squamous cells, undetermined significance (ASC-US). 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 EDUCATIONAL NOTES/RECOMMENDATI ONS ? [facility] recommends following ASCCP's 2012 Updated Consensus Guidelines for the Management of Abnormal Cervical Cancer Screening Tests and Cancer Precursors (JLGTD, 2013; 17(5):S1-S27). ??Consensus guidelines are available online at www.asccp.org. Menstrual/Pregnanc y Status: ??Post Menopausal Previous Gynecologic Pathology: HPV: + 2011 Treatment History: Colposcopy: 2011 Other: Additional clinical information: DUB 02/2013 Specimen/Source: ??Pap Test, Cervix/Endocervix, ThinPrep Imaging System with manual evaluation Document reviewed and electronically signed by: ? NESTOR NINO MD ? Report ??Date: 03/22/2013 16:25 HPV with Pap Test ? Date Ordered: ? 03/22/2013 ? Status: ?? Signed Out ?Date Complete: ? 03/24/2013 ? By: ??System Interface ? Date Reported: ? 03/24/2013 ? Interpretation RESULT: Positive for high or intermediate risk HPV. E6 OR E7 mRNA from one or more types of HPV types 16,18,31, 33,35,39,45,51,52, 56,58,59,66, and 68 is detected by customs appraiser mediated amplification. High and intermediate risk HPV types are associated with most squamous intraepithelial lesions and cervical cancers. Comments Document reviewed and electronically signed by: ? System Interface ? Report date: 03/24/2013 By the signature above, the attending physician certifies that he/she has personally conducted a gross and/or microscopic examination of the described specimens and rendered or confirmed the above diagnosis. End of Report ANTONI PAZ 03/13/2013 03/15/2013 us Gwen Stanford MD PATHOLOGY ORDERABLES Final Result Performing Organization Address City/State/[facility] Co de Phone Number CORRALESJOSÉ MIGUEL [facility] [address] [place] [address] documented in this encounter Visit Diagnoses Not on filedocumented in this encounter Care Teams Cnc Maintenance Technician Relationship Specialty Start Date End Date Gwen Stanford MD [address] [facility] [address] [place] [phone] PCP - General 08/11/11 documented as of this encounter
--- OUTSIDE RECORDS SUMMARY | 2024-05-19 00:36 | XMS_ITS | Encounter Summary ---
[place] [address] Care Team Providers Care Line Service Technician Name Role Phone Gwen Stanford MD Primary Care Provider [phone] Reason for Visit * Auth/Cert Specialty Diagnoses / Procedures Referred By Letitia t Referred To Contact Diagnoses UTERINE MASS, HYPERPLASIA Procedures PRO LAPAROSCOPY W TOT HYSTERECTUTERUS <=250 GRAM W TUBE/OVARY PRO LAP, PELVIC LYMPHADENECTOMY/BX LAPAROSCOPY,TOTAL HYST, UTERUS<250GM, REM TUBE &/OR OVARY, ROBOTIC ASSIST LAPAROSCOPY,W\BILATERAL TOTAL PELVIC LYMPHADENECTOMY, PERIAORTIC LYMPH NODE SAMPLING, ROBOTIC MODIFIER ROBOT,DAVINCI XI Referral ID Status Reason Start Date Expiration Date Visits Re quested Visits Authorized [id number] 1 1 Encounter Details Date Type Department Care Team (Late st Contact Info) Description 05/05/2016 12:10 PM EST Anesthesia [place] [address] Xenia Grey MD Anesthesia Record Procedure Summary Procedure Name Responsible Anesthesiologist Anesthesia Start Time Anesthesia Stop Time ROBOTIC LAPAROSCOPY,TOTAL HYST, UTERUS<250GM, REM TUBE &/OR OVARY (WRVU 15) (Uterus) Xenia Grey MD 05/05/16 1210 05/05/16 1505 Events Date Time Event Comment 05/05/2016 1110 1210 Start 1220 AN Verify 1222 An Start Data 1229 An Induction 1232 An Intubation 1239 Anesthesia Ready 1332 Break/Relief In XENIA NIXON MD 1347 Break/Relief Out 1446 Extubation/LMA Out 1448 an stop data 1500 Recovery or ICU Handoff Ellen ent care was transferred to the destination unit staff after review of the patient's medical history, current anesthetic/surgical status and plan, according to the Provider Handoff Checklist. 1505 Stop Meds Name Total Midazolam 3 mg fentaNYL 125 mcg IV Lidocaine 40 mg Propofol 200 mg Rocuronium 50 mg Ondansetron 4 mg Dexamethasone 6 mg Neostigmine 3 mg Glycopyrrolate 0.4 mg clindamycin (CLEOCIN) 900mg in dextrose 5% 50mL 900 mg gentamicin (GARAMYCIN) 261.6 mg in sodiu m chloride 0.9% 106.54 mL 0.48 g Propofol INF 191.75 mg lactated ringers infusion 1,000 mL 500 m L Lactated Ringers 400 mL * Agents Name O2 Air N2O Sevoflurane (et) * Blood No blood administrations on file. Lines, Drains, and Airways Type Details Placement Removal Incision 05/05/16; abdomen; laparoscopic puncture; 01/19/22 (LDA cleanup utility RA#[id number]); 1715 (LDA cleanup utility RA#[id number]) 05/05/16 0000 by Dominga David RN 01/19/22 1715 by Errol Zhang Urethral Catheter 05/05/16; Surgery longer than 2 hours; indwelling double lumen catheter; latex; 14; inserted at this facility; 1; 10; 10; none; drainage bag to dependent drainage; urethral catheter removed, tubing intact; 05/06/16; 0445 05/05/16 0000 by Dominga David RN 05/06/16 0445 by Zuri Childress RN (RETIRED) Peripheral IV Line - Single Lumen 05/05/16; 1042; cephalic vein (lateral side of arm), right; iocq-rlv-[id number] catheter system; 20 gauge, 1 in length; no longer indicated, removed per physician; 05/06/16; 1027 05/05/16 1042 by Xenia Darby RN 05/06/16 1027 by Suly Anne RN ETT Mask Ventilation: Ea sy (1); ETT Type: Cuffed; ETT Size: 7 mm; Mac Blade: 3; Notes: Asleep, Pre-O2, Cricoid Pressure, Stylette; Attempts: 1; Laryngoscopy Grade: 2; ETT Placement Verified By: Auscultation, Capnometry, Visual; Secured at Teeth: 21 cm; Inserted by: DEVAN Martins; Removal Date: 05/05/16; Removal Time: 1446 05/05/16 1237 by Chen Martins CRNA 05/05/16 1446 by Chen Martins CRNA (RETIRED) Peripheral IV Line - Single Lumen 05/05/16; 1247; basilic vein (medial side of arm), left; yhal-spf-dkbzgv catheter system; 18 gauge; DEVAN Martins; 0; removed per physician, no longer indicated; 05/06/16 05/05/16 1247 by Chen Martins CRNA 05/06/16 0000 by Suly Anne RN documented in this encounter Social History Tobacco Use Types Packs/Day Years [...] on file documented as of this encounter OR Notes * Anesthesia Postprocedure Evaluation - Xenia Grey MD - 05/06/2016 12:10 PM EST [facility] [place] Anesthesiology Post-procedure Note Patient: Lourdes Castro Procedure Summary Date Anesthesia Start Anesthesia Stop Room / Location 05/05/16 1210 1505 [facility] OR [facility] MAIN OR Procedure Diagnosis Surgeon Responsible Provider LAPAROSCOPY,TOTAL HYST, UTERUS<250GM, REM TUBE &/OR OVARY, ROBOTIC ASSIST (WRVU 15) (N/A Uterus) (UTERINE MASS, HYPERPLASIA) Jayde Aden MD Fillinger, Mary P, MD All Anesthesia Providers: Anesthesiologist: Xenia Grey MD BAR SUPERVISOR: Chen Martins CRNA Last (1hr) Vitals: BP Temp Pulse Resp SpO2 Patient Location: Floor Level of Consciousness: Awake and Alert Pain Management: Satisfactory Analgesia PONV: None Cardiovascular Status: Hemodynamically Stable Respiratory Status: Room Air Postoperative Fluid Status: Intravascular EUvolemia Possible Anesthetic Complications: NONE apparent at time of evaluation Final Primary Anesthesia Type: General (The anesthetic type performed was the same as planned.) Comments: * Anesthesia Preprocedure Evaluation - Xenia Grey MD - 05/05/2016 8:27 AM EST Pre-Anesthesia Evaluation for: Lourdes Castro a 61 y.o. female. Procedure(s): LAPAROSCOPY,TOTAL HYST, UTERUS<250GM, REM TUBE &/OR OVARY, ROBOTIC ASSIST (WRVU 15) LAPAROSCOPY,W\BILATERAL TOTAL PELVIC LYMPHADENECTOMY, PERIAORTIC LYMPH NODE SAMPLING, ROBOTIC (WRVU15.6) MODIFIER ROBOT,DAVINCI XI Patient Active Problem List Diagnosis ??? Abnormal uterine bleeding (AUB) ??? Former smoker ??? Uterine mass ??? Postmenopausal HRT (hormone replacement therapy) ??? Tendinitis ??? Trigger thumb of left hand Past Medical History Diagnosis Date ??? Abnormal uterine bleeding (AUB) 04/23/2016 ??? Depression ??? Former smoker 04/23/2016 ??? Postmenopausal HRT (hormone replacement therapy) 04/23/2016 ??? Tendinitis ??? Uterine mass 04/23/2016 Past Surgical History Procedure Laterality Date ??? Pro colonoscopy, remv lesn, snare 12/19/2013 COLONOSCOPY, POLYPECTOMY, REMOVAL LESION BY SNARE performed by Artur Treviño MD at [facility] END[facility]COPY ??? Tonsillectomy Social History Substance Use Topics ??? Smoking status: Former Smoker Years: 20.00 Types: Cigarettes Quit date: 04/23/1996 ??? Smokeless tobacco: Never Used ??? Alcohol use 4.2 oz/week 7 Shots of liquor per week History Drug Use Not on file Allergies Allergen Reactions ??? Codeine Anxiety ??? Penicillins Anaphylaxis Medications: MAR and/or home medications have been reviewed. Physical Exam: There were no vitals filed for this visit. There is no height or weight on file to calculate BMI. Airway Assessment: Mallampati: II TM distance: >3 FB Neck ROM: full Cardiovascular Assessment: Rhythm: regular Rate: normal Pulmonary Assessment: breath sounds clear to auscultation Dental Assessment: Comment: None loose. Misc Assessment: Other exam findings: Pt notes left lateral lip, primarily inside, with ecchymosis secondary to lip being pinched while flossing. Anesthesia Plan: ASA 2 general, 61 y/o female with hx anxiety on clonazepam presents with uterine mass for laparoscopic, robotic, total hysterectomy, total pelvic lymphadenectomy. Denies CP, SOB. Good functional capacity. Denies cardiac, pulmonary, hepatic, renal disease. Denies GERD. Denies problems with anesthesia, self (no problems with tonsils at age 6 or conscious sedation withcolonoscopy as adult) or family. Denies motion sickness. POC hemoglobin 16 this morning. Plan GETA. 2nd PIV. Risks (including, but not limited to, awareness, nerve damage, damage to the major organs, ) benefits, alternatives discussed. Questions solicited and answered. Consent obtained. Region - Other Informed Consent: Anesthetic plan and risks discussed with patient and spouse. Use of blood products discussed with patient who consented to blood products. PAT Staff Note documented in this encounter Plan of Treatment Upcoming Encounters Date Type Department Care Team (Late st Contact Info) Description 06/29/2024 1:40 PM EST Appointment Mammography/[place] [phone] Gwen Stanford MD [address] [place] [address] [address] 09/11/2024 10:00 AM EDT Office Visit Dermatology at [facility] [address] [place] [phone] uS Rosas MD [facility] DR ANTONINA [place] [address] documented as of this encounter Visit Diagnoses Not on filedocumented in this encounter Administered Medications Inactive Administered Medications - up to 3 most recent administrations Medication Order MAR Action Action Date Dose Rate Site clindamycin (CLEOCIN) 900mg in dextrose 5% 50mL 900 mg, Intravenous, ONCE, 1 dose, On Wed05/05/16 at 1100, Administer over 30 Minutes, Give over 30-60 minutes. Do not exceed 30mg/minute. Redose every 6 hours if CrCl is greater than 20. Redose every 6 hours if CrCl is less than 20., Day of Surgery (Day of Procedure), Indication for (Active or Suspected): Prophylaxis Given 05/05/2016 12:48 PM EST 900 mg dexamethasone (DECADRON) injection PRN, Starting on Wed05/05/16 at 1245, Until Wed05/05/16 at 1505, Anesthesia Intra-op, Routine Given 05/05/2016 12:45 PM EST 6 mg fentaNYL 50 mcg/mL multi-dose injection PRN, Starting on Wed05/05/16 at 1215, Until Wed05/05/16 at 1505, Pain, Anesthesia Intra-op, Routine Given 05/05/2016 3:02 PM EST 25 mcg Given 05/05/2016 2:45 PM EST 25 mcg Given 05/05/2016 2:30 PM EST 25 mcg gentamicin (GARAMYCIN) 261.6 mg in sodium chloride 0.9% 106.54 mL 261.6 mg (rounded from 261.5 mg = 5 mg/kg/dose ? 52.3 kg Adjusted weight), Intravenous, ONCE, 1 dose, On Wed05/05/16 at 1100, Administer over 60 Minutes, Consider alternative if CrCl is less than 20 or between 20-50., Day of Surgery (Day of Procedure), Indication for (Active or Suspected): Prophylaxis New Bag 05/05/2016 1:02 PM EST 240 mg New Bag 05/05/2016 12:45 PM EST 240 mg glycopyrrolate (ROBINUL) multi-dose injection PRN, Starting on Wed05/05/16 at 1427, Until Wed05/05/16 at 1505, Anesthesia Intra-op, Routine Given 05/05/2016 2:27 PM EST 0.4 mg lactated ringers infusion 1,000 mL 1,000 mL, at 100 mL/hr, Intravenous, CONTINUOUS, Starting on Wed05/05/16 at 1045, Until Wed05/05/16 at 1506, Day of Surgery (Day of Procedure) New Bag 05/05/2016 12:00 PM EST lactated ringers infusion CONTINUOUS PRN, Starting on Wed05/05/16 at 1230, Until Wed05/05/16 at 1505, Anesthesia Intra-op [facility] 05/05/2016 12:30 PM EST lidocaine (PF) (XYLOCAINE) 100 mg/5 mL (2 %) injection PRN, Starting on Wed05/05/16 at 1215, Until Wed05/05/16 at 1505, Anesthesia Intra-op, Routine Given 05/05/2016 12:15 PM EST 40 mg midazolam (PF) (VERSED) 1 mg/mL multi-dose injection PRN, Starting on Wed05/05/16 at 1200, Until Wed05/05/16 at 1505, Sleep, Anesthesia Intra-op, Routine Given 05/05/2016 12:00 PM EST 3 mg neostigmine (PROSTIGMINE) multi-dose injection PRN, Starting on Wed05/05/16 at 1427, Until Wed05/05/16 at 1505, Anesthesia Intra-op, Routine Given 05/05/2016 2:27 PM EST 3 mg ondansetron (ZOFRAN) injection PRN, Starting on Wed05/05/16 at 1412, Until Wed05/05/16 at 1505, Nausea, Anesthesia Intra-op, Routine Given 05/05/2016 2:12 PM EST 4 mg propofol (DIPRIVAN) 10 mg/mL bolus injection (Anesthesia) PRN, Starting on Wed05/05/16 at 1215, Until Wed05/05/16 at 1505, Anesthesia Intra-op Given 05/05/2016 12:17 PM EST 50 mg Given 05/05/2016 12:15 PM EST 150 mg propofol (DIPRIVAN) infusion CONTINUOUS PRN, Starting on Wed05/05/16 at 1300, Until Wed05/05/16 at 1505, Anesthesia Intra-op, Routine Rate/Dose Change 05/05/2016 1:25 PM EST 25 mcg/kg/min 8.9 mL/hr [facility] 05/05/2016 1:00 PM EST 30 mcg/kg/min 10.6 mL/hr rocuronium (ZEMURON) multi-dose injection PRN, Starting on Wed05/05/16 at 1215, Until Tu05/05/16 at 1505, Anesthesia Intra-op, Routine Given 05/05/2016 12:15 PM EST 50 mg documented in this encounter Care Teams Line Service Technician Relationship Specialty Start Date End Date Gwen Stanford MD [address] [place] [address] PCP - General 04/15/10 documented as of this encounter
--- OUTSIDE RECORDS SUMMARY | 2024-05-19 00:36 | XMS_ITS | Encounter Summary ---
Author Organization [facility] Address [address] [place] [address] Care Team Providers Care Pouako Kura Ka[place] Maori Name Role Phone Gwen Stanford MD Primary Care Provider [phone] Reason for Visit * Reason Comments Other Pessary Fitting Encounter Details Date Type Department Care Team (Latest Contact Info) Description 11/09/2017 13:45 EDT Office Visit [facility] Pelvic Medicine and Reconstructive Surgery - Medical Office [address] [phone] Janet Hunt MD 2 [facility] Medical Office [facility], [facility] [address] [place] [address] Female genital prolapse, unspecified type [...] Sign Reading Time Taken Comments Blood Pressure 116/70 11/09/2017 1347 EDT Pulse 71 11/09/2017 1347 EDT Temperature - - Respiratory Rate - - Oxygen Saturation - - Inhaled Oxygen Concentration - - Weight - - Height - - Body Mass Index - - documented in this encounter Progress Notes * Janet Hunt MD - 11/09/2017 1345 EDT Pessary Fitting Chief Complaint: Other (Pessary Fitting) Patient: Lourdes Castro is an 62 y.o. female presents for pessary fitting. Has cystocele/rectocele, was planning for repair with possible TVT pending Urodynamics, wants to try pessary again. At previous office failed Donut, [place]ell[place] and ring with support trials. Voiding History OB History No data available No past medical history on file. No past surgical history on file. Current Outpatient Prescriptions: BIOTIN ORAL clonazePAM (KLONOPIN) 1 mg tablet ECHINACEA ORAL estradiol (ESTRACE) 1 mg tablet FLUCONAZOLE ORAL GLUCOSAMINE HCL/CHONDROITIN CUBA (GLUCOSAMINE-CHONDROITIN ORAL) IBUPROFEN ORAL MELATONIN/HERBAL NO.233 (MIDNITE ORAL) MV-MIN/VIT C/GLUT/LYSINE/HB124 ([place], LYSINE HCL, ORAL) VITAMIN B COMPLEX (B COMPLEX ORAL) No current facility-administered medications for this visit. Allergies Allergen Reactions ??? Penicillins ??? Codeine Nausea Only and Other (See Comments) hallucinations A 15 point Review of Systems was performed. Positives related to the patient???s complaint are listed in the [place]; all others are negative. FEMALE EXAM (urogyn) External Genitalia: Not examined Post Void Residual: Not Done Vaginal Examination: Pessary Exam of bony pelvic, pubic arch and vaginal length performed. Patient fit with a size 4 dish with knob pessary successfully Assessment Lourdes Castro is a 62 y.o. female with pelvic organ prolapse here for routine pessary care. Plan F/u prn Janet Hunt MD documented in this encounter Plan of Treatment Not on file documented as of this encounter Visit Diagnoses Diagnosis Female genital prolapse, unspecified type- Primary documented in this encounter Care Teams [place] Maori Relationship Specialty Start Date End Date Gwen Stanford MD [address] [place], [place] [address]Y [address] [place] [phone] PCP - General 08/11/11 documented as of this encounter
--- OUTSIDE RECORDS SUMMARY | 2024-05-19 00:36 | XMS_ITS | Encounter Summary ---
Author Organization [facility] [place] [address] Care Team Providers Care Enterprise Application Administrator Name Role Phone Gwen Stanford MD Primary Care Provider [phone] Encounter Details Date Type Department Care Team (Late st Contact Info) Description 10/10/2012 Orders Only [place] [phone] Abraham Adam MD [facility] [place] [address] Hand pain (Primary Dx) Social History Tobacco Use Types [...] 06/29/2024 1:40 PM EST Appointment Mammography/[place] [phone] Gwen Stanford MD [address] [place] [address] [address] [place], [place] [address] 09/11/2024 10:00 AM EDT Office Visit Dermatology at [facility] [address] [place] [address] Su Rosas MD [facility] DR ANTONINA [place] [address] documented as of this encounter Visit Diagnoses Diagnosis Hand pain- Primary Pain in limb documented in this encounter Care Teams Enterprise Application Administrator Relationship Specialty Start Date End Date Gwen Stanford MD [facility] [address] [place] [address] PCP - General 04/15/10 documented as of this encounter
--- OUTSIDE RECORDS SUMMARY | 2024-05-19 00:36 | XMS_ITS | Encounter Summary ---
Author Organization [facility] Address [address] [place] [address] Care Team Providers Care Beam Dyer Recessed Vat Name Role Phone Gwen Stanford MD Primary Care Provider [phone] Encounter Details Date Type Department Care Team (Late st Contact Info) Description 04/23/2014 Results Only [facility] Laboratory Services - [facility] ([facility] [address] [place], [place] [address] Gwen Stanford MD [address] [place] [address] [address] [place] [phone] Social History Tobacco Use Types Packs/Day Years [...] Diagnosis Comments PAP TEST- RESULT ONLY Routine 04/23/2014 0:00 EST documented in this encounter Results * PAP TEST- RESULT ONLY (04/23/2014 0:00 EST) Pathology Report: CYTOPATHOLOGY REPORT Reports generated via electronic interface contain original data; however they are lacking the format of the original report. Caution should be taken when reading/interpreti ng unformatted reports. Name: ? LOURDES CASTRO ? Accession #: ? [id number] ? : ? 1955 (Age: 59) ??F ?Collect Date: ? 04/23/2014 ? Location: ? [facility] ? Receive Date: ? 04/25/2014 ? Provider: GWEN STANFORD MD Copy to: ? Final Report SPECIMEN ADEQUACY ? Satisfactory for Evaluation - transformation zone component absent GENERAL CATEGORIZATION ? Negative for Intraepithelial Lesion or Malignancy ?? Menstrual/Pregnanc y Status: ??Post Menopausal Previous Gynecologic Pathology: ASC-US: 03/24/2013 HPV: + 2012 Treatment History: Colposcopy Specimen/Source: ??Pap Test, Cervix/Endocervix, ThinPrep Imaging System with manual evaluation Document reviewed and electronically signed by: ? JESSICA Sutton(ASCP) ? Report ??Date: 04/27/2014 14:59 HPV with Pap Test ? Date Ordered: ? 04/27/2014 ? Status: ?? Signed Out ?Date Complete: ? 05/01/2014 ? By: ??System Interface ? Date Reported: ? 05/01/2014 ? Interpretation RESULT: Negative for HPV. No E6 or E7 mRNA is detected from HPV types 16,18,31,33,35, 39,45,51,52,56,58, 59,66, and 68 by transcription specialist mediated amplification. Comments Document reviewed and electronically signed by: ? System Interface ? Report date: 05/01/2014 By the signature above, the attending physician certifies that he/she has personally conducted a gross and/or microscopic examination of the described specimens and rendered or confirmed the above diagnosis. End of Report [facility] 04/23/2014 04/25/2014 us Gwen Stanford MD PATHOLOGY ORDERABLES Final Result [facility] [address] [place] [address] documented in this encounter Visit Diagnoses Not on filedocumented in this encounter Care Teams Beam Dyer Recessed Vat Relationship Specialty Start Date End Date Gwen Stanford MD [address] [place] [address] [address] [place] [address] PCP - General 08/11/11 documented as of this encounter
--- OUTSIDE RECORDS SUMMARY | 2024-05-19 00:36 | XMS_ITS | Encounter Summary ---
Author Organization [facility] Address [address] [place] [address] Care Team Providers Care Sailboat Captain Name Role Phone Gwen Stanford MD Primary Care Provider [phone] Encounter Details Date Type Department Care Team (Late st Contact Info) Description 03/27/2016 Results Only [facility] [phone] Jayden Carreno MD [address] [place] [address] Social History Tobacco Use Types Packs/Day Years [...] Priority Date/Time Associated Diagnosis Comments SURGICAL PATHOLOGY Routine 03/27/2016 16 :34 EDT documented in this encounter Results * SURGICAL PATHOLOGY (03/27/2016 16:34 EDT) Pathology Report: SURGICAL PATHOLOGY REPORT Reports generated via electronic interface contain original data; however they are lacking the format of the original report. Caution should be taken when reading/interpret ing unformatted reports. Name: ? LOURDES CASTRO ? Accession #: ? [id number] ? : ? 1955 (Age: 61) ??F ? Collect Date: ? 03/27/2016 ? Location: ? [facility] ? Receive Date: ? 03/27/2016 ? Provider: JAYDEN CARRENO MD Copy to: GWEN STANFORD MD ? Final Pathologic Diagnosis: ENDOMETRIUM, BIOPSY: - Strips and small fragments of benign inactive endometrium with tubal metaplasia and breakdown change. See comment. - No cytologic atypia identified. - Abundant blood clot. Comment: The specimen predominantly consists of blood with rare endometrial tissue present for evaluation. Deeper levels have been examined. A preliminary diagnosis of predominantly blood clot and superficial strips of epithelium, pending deepers was given to Dr. Carreno by Dr. Wilkins at 0756 on 03/30/2016. Dr. Arvizu 03/30/2016 8:36 PM Document reviewed and electronically signed by: SISI LLOYD MD Report ??Date: 04/01/2016 12:08 By the signature above, the attending physician certifies that he/she has personally conducted a gross and/or microscopic examination of the described specimens and rendered or confirmed the above diagnosis. Specimen(s) Received: Endometrial biopsy Clinical History: CONSULTING INTERN woman with enlarging fibroids and uterus Gross Description: ? Received in formalin labelled with proper patient identification (initials A, L) and endometrial biopsy is an aggregate of garcia-brown tissue fragments (3.0 x 2.5 x 0.7 cm). Submitted in toto in 1. Dr. Orta 03/28/2016 12:37 PM End of Report [facility] 03/27/2016 16:3 4 EDT 03/27/2016 16:34 EDT us Jayden Carreno MD PATHOLOGY ORDERABLES Final Resu lt [facility] [address] [place] [address] documented in this encounter Visit Diagnoses Not on filedocumented in this encounter Care Teams Sailboat Captain Relationship Specialty Start Date End Date Gwen Stanford MD [address] [facility] [address] [place] [phone] PCP - General 08/11/11 documented as of this encounter
--- OUTSIDE RECORDS SUMMARY | 2024-05-19 00:36 | XMS_ITS | Encounter Summary ---
Author Organization [facility] Address [address] [place] [address] Care Team Providers Care Motor Equipment Commanding Officer Name Role Phone Gwen Stanford MD Primary Care Provider [phone] Encounter Details Date Type Department Care Team (Late st Contact Info) Description 03/07/2018 12:30 EDT - 03/07/2018 23:59 EDT Hospital Encounter [facility] - Medical Office Building [phone] Gwen Stanford MD [address] [place] [address] [address] [place] [phone] Discharge Disposition: Home or Self Care Social History Tobacco Use Types Packs/Day Years Used Date Smoking Tobacco: Former Cigarettes Q uit: 05/24/1997 Smokeless Tobacco: Never Comments No Sex and Gender Information Value Date Recorded Sex Assigned at Not on file Legal Sex Female 18:20 EST Gender Identity Not on file Sexual Orientation Not on file documented as of this encounter Discharge Diagnoses Diagnosis N81.10 Cystocele, unspecified-N81.10[ICD-10-CM] N81.6 Rectocele-N81.6[ICD-10-CM] documented in this encounter Medications at Time of Discharge BIOTIN ORAL Take by mouth. clonazePAM (KLONOPIN) 1 mg tablet Take 1 mg by mouth as needed. ECHINACEA ORAL Take by mouth. estradiol (ESTRACE) 1 mg tablet Take 1 mg by mouth daily. FLUCONAZOLE ORAL Take by mouth as needed. GLUCOSAMINE HCL/CHONDROITIN CUBA (GLUCOSAMINE-CHOND ROITIN ORAL) Take by mouth. IBUPROFEN ORAL Take by mouth as needed. MELATONIN/HERBAL NO.233 (MIDNITE ORAL) Take by mouth as needed. MV-MIN/VIT C/GLUT/LYSINE/HB12 4 ([place], LYSINE HCL, ORAL) Take by mouth. VITAMIN B COMPLEX (B COMPLEX ORAL) Take by mouth. documented as of this encounter Discharge Disposition Disposition Code Departure Means Destination Home or Self [facility]ci documented in this encounter Plan of Treatment Not on file documented as of this encounter Visit Diagnoses Not on filedocumented in this encounter Care Teams Motor Equipment Commanding Officer Relationship Specialty Start Date End Date Gwen Stanford MD [address] [place] [address] PCP - General 08/11/11 documented as of this encounter
--- OUTSIDE RECORDS SUMMARY | 2024-05-19 00:36 | XMS_ITS | Encounter Summary ---
Author Organization [facility] Address [address] [place] [address] Care Team Providers Care Vp Integration Name Role Phone Gwen Stanford MD Primary Care Provider [phone] Reason for Visit * Reason Comments Pelvic Organ Prolapse cystocele Other pelvic floor dysfunc tion, pain Encounter Details Date Type Department Care Team (Latest Contact Info) Description 09/07/2017 8:30 EDT Office Visit [facility] Pelvic Medicine and Reconstructive Surgery - Medical Office [facility] [address] [place] [phone] Janet Hunt MD 2 [facility] Medical Office [facility] [address] [place] [phone] Female genital prolapse, unspecified type (Primary Dx) [...] Sign Reading Time Taken Comments Blood Pressure 132/76 09/07/2017 0830 EDT Pulse 59 09/07/2017 0830 EDT Temperature - - Respiratory Rate - - Oxygen Saturation - - Inhaled Oxygen Concentration - - Weight 59 kg (130 lb) 09/07/2017 0830 EDT Height 154.9 cm (5' 1) 09/07/2017 0830 EDT Body Mass Index 24.56 09/07/2017 0830 EDT documented in this encounter Progress Notes * Janet Hunt MD - 09/07/2017 0830 EDT [facility] FEMALE EXAMINATION Patient: Lourdes Castro is an 62 y.o. female seen for consultation at the request of Gwen Stanford MD for Pelvic Organ Prolapse (cystocele) and Other (pelvic floor dysfunction, pain). HPI 62 yo P with pelvic floor prolapse s/p robotic hysterectomy 05/08 at [facility] [place] with GYNONC due to enlarging uterus. 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 Pt has struggled with menopause, not able to wean off HRT, now on ERT. Pt developed abdominal pain and pressure 11/07. Went to pelvic floor PT with minimal improvement. Pt had normal CT ABD/PELVIS at [facility] [place]. Saw Urogynecologist in [place], tried multiple pessaries. Recommended abdominal sacrocolpopexy. Pt very active, wants to be able to exercise. Here for second opinion re : treatment options. Denies urinary and fecal incontinence. ROS Pelvic pain: Yes Dyspareunia: No Recurrent UTI: No Hematuria: No A review of the patient's medical, social, and family history along with medications and allergies was performed. OB History No data available No past medical history on file. No past surgical history on file. No family history on file. Social History Social History ??? Marital status: Spouse name: N/A ??? Number of children: N/A ??? Years of education: N/A Social History Main Topics ??? Smoking status: Former Smoker Quit date: 05/24/1997 ??? Smokeless tobacco: Never Used ??? Alcohol use None ??? Drug use: None ??? Sexual activity: Not Asked Other Topics Concern ??? None Social History Narrative ??? None Current Outpatient Prescriptions: BIOTIN ORAL clonazePAM (KLONOPIN) [...] related to the patient???s complaint are listed below; all others are either negative or documented in the patient???s scanned Review of Systems. PELVIC EXAM External Genitalia: Normal Vaginal Examination: normal Cervix absent Uterus: absent Pelvic Floor Relaxation: present cystocele, stage: 3 and rectocele, stage: 2-3 Adnexa: Normal Urethra hypermobile Bladder Normal Rectal prolapse: Absent Rectal hemorrhoids: Absent Perineum Normal Vitals BP 132/76 Pulse 59 Ht 154.9 cm (61) Wt 59 kg (130 lb) LMP (Exact Date) BMI 24.56 kg/m2 General Physical Exam Constitutional/General: Oriented to person, place, and time. Appears well- developed and well-nourished. HEENT: Head: normocephalic and atraumatic Eyes: conjunctivae and EOM normal Nose: nose normal Throat/mouth: oropharynx clear and moist Neck: normal range of motion Pulmonary: effort normal Abdomen: abdomen soft Musculoskeletal: normal range of motion Skin: warm and dry Neuro/Psych: alert and oriented to person, place, and time Labs Results for orders placed or performed in visit on 09/07/17 POCT URINE DIPSTICK Result Value Ref Range Color YELLOW Clarity, UA Clear Glucose Neg Neg Bilirubin Neg Neg Ketones Neg Neg Specific [place] 1.015 1.001 - 1.035 Blood Neg Neg pH 8.5 (H) 4.6 - 8.0 Protein Neg Neg Urobilinogen 1.0 0.2 - 1.0 E.U./dl Nitrite Neg Neg Leuk Esterase Neg Neg Tech ID [id number] Assessment Lourdes Castro is a 62 y.o.female with symptomatic pelvic floor prolapse. Plan Pelvic Floor Physical Therapy Office Urodynamic Testing: uroflow, post void residual and pressure flow study Cystoscopy Reviewed anatomic diagrams, treatment options. Total visit >55 mins, >50% in discussion of options, previous treatment, coordination of care. Janet Hunt MD documented in this encounter Plan of Treatment Not on file documented as of this encounter Procedures Procedure Name Priority Date/Time Associated Diagnosis Comments POCT URINE DIPSTICK, CLINITEK Routine 09/07/2017 9:03 EDT Female genital prolapse, unspecified type documented in this encounter Results * (ABNORMAL) POCT URINE DIPSTICK (09/07/2017 9:03 EDT) Color YELLOW 09/07/2017 8:50 T [facility] Clarity, UA Clear 09/07/2017 8:50 EDT [facility] Glucose Neg Neg 09/07/2017 8:50 T [facility] Bilirubin Neg Neg 09/07/2017 8:50 T [facility] Ketones Neg Neg 09/07/2017 8:50 [facility] Specific [place] 1.015 1.001 - 1.035 09/07/2017 8:50 [facility] Blood Neg Neg 09/07/2017 8:50 [facility] pH 8.5(H) 4.6 - 8.0 09/07/2017 8:50 [facility] Protein Neg Neg 09/07/2017 8:50 [facility] Urobilinogen 1.0 0.2 - 1.0 E.U./dl 09/07/2017 8:50 [facility] Nitrite Neg Neg 09/07/2017 8:50 [facility] Leuk Esterase Neg Neg 09/07/2017 8:50 [facility] underwriter ID [id number] 09/07/2017 8:50 [facility] Comment:Test performed at [facility] Urine specimen (specimen) URINE / Unknown 09/07/2017 9:03 EDT 09/07/2017 8:50 EDT us Janet Hunt MD POINT OF CARE TEST ORDER TAYLOR Final Result [facility] [address] [place] [address] documented in this encounter Visit Diagnoses Diagnosis Female genital prolapse, unspecified type- Primary documented in this encounter Historical Medications * This list may reflect changes made after this encounter. ECHINACEA ORAL Take by mouth. MV-MIN/VIT C/GLUT/LYSINE/HB12 4 ([place], LYSINE HCL, ORAL) Take by mouth. FLUCONAZOLE ORAL Take by mouth as needed. BIOTIN ORAL Take by mouth. VITAMIN B COMPLEX (B COMPLEX ORAL) Take by mouth. GLUCOSAMINE HCL/CHONDROITIN CUBA (GLUCOSAMINE-CHOND ROITIN ORAL) Take by mouth. clonazePAM (KLONOPIN) 1 mg tablet Take 1 mg by mouth as needed. estradiol (ESTRACE) 1 mg tablet Take 1 mg by mouth daily. MELATONIN/HERBAL NO.233 (MIDNITE ORAL) Take by mouth as needed. IBUPROFEN ORAL Take by mouth as needed. added in this encounter Care Teams Vp Integration Relationship Specialty Start Date End Date Gwen Stanford MD [address] [place] [phone] PCP - General 08/11/11 documented as of this encounter
--- OUTSIDE RECORDS SUMMARY | 2024-05-19 00:36 | XMS_ITS | Encounter Summary ---
Author Organization [facility] Address [address] [place] [address] Care Team Providers Care Manager Shop Name Role Phone Gwen Monsalve MD Primary Care Provider [phone] Encounter Details Date Type Department Care Team (Late st Contact Info) Description 04/12/2013 Results Only [facility] - [facility] ([facility] [address] [place] [phone] Abby London MD [address] [place] [address] [place] [phone] Social History Tobacco Use Types Packs/Day Years [...] Date/Time Associated Diagnosis Comments SURGICAL PATHOLOGY Routine 04/12/2013 21 :23 EST documented in this encounter Results * SURGICAL PATHOLOGY (04/12/2013 21:23 EST) Pathology Report: SURGICAL PATHOLOGY REPORT Reports generated via electronic interface contain original data; however they are lacking the format of the original report. Caution should be taken when reading/interpreti ng unformatted reports. Name: ? LOURDES CASTRO ? Accession #: ? [id number] ? : ? 1955 (Age: 58) ??F ? Collect Date: ? 04/12/2013 ? Location: ? [facility] ? Receive Date: ? 04/12/2013 ? Provider: ABBY LONDON MD Copy to: GWEN MONSALVE MD ??Laly Mcdowell ([id number]) ? Final Pathologic Diagnosis: ENDOMETRIUM, BIOPSY: - ??Superficial strips of inactive endometrium and blood. - ??Fragments of unremarkable endocervical epithelium. Document reviewed and electronically signed by: FRANK MENDOZA MD Report ??Date: 04/14/2013 16:06 By the signature above, the attending physician certifies that he/she has personally conducted a gross and/or microscopic examination of the described specimens and rendered or confirmed the above diagnosis. Specimen(s) Received: Endo bx (endometrium) Clinical History: PMB, recent HRT Gross Description: ? Received in formalin labelled with proper patient identification (initials A, L) and endometrium is an aggregate of clotted blood and blood tinged mucus admixed with red brown tissue (2 cc). Submitted in toto in blocks 1-2. Laly Mcdowell 04/13/2013 08:35 AM End of Report ANTONI PAZ 04/12/2013 21:2 3 EST 04/12/2013 21:23 EST us Abby London MD PATHOLOGY ORDERABLES Final Resu lt CORRALESJOSÉ MIGUEL PAZ [address] [place] [address] documented in this encounter Visit Diagnoses Not on filedocumented in this encounter Care Teams Manager Shop Relationship Specialty Start Date End Date Gwen Monsalve MD [address] [place] [phone] PCP - General 08/11/11 documented as of this encounter
--- OUTSIDE RECORDS SUMMARY | 2024-05-19 00:36 | XMS_ITS | Encounter Summary ---
Author Organization [facility] Address [address] [place] [address] Care Team Providers Care Shirt Sorter Name Role Phone Gwen Stanford MD Primary Care Provider [phone] Reason for Visit * Reason Onset Date Comments Appointment Related 03/04/2018 Encounter Details Date Type Department Care Team (Late st Contact Info) Description 03/04/2018 Telephone [facility] Rehabilitation Therapy - Medical Office Building [address] [place] [phone] Estefania Zamora, BREN Appointment Related Social History Tobacco Use Types Packs/Day Years Used Date Smoking Tobacco: Former Cigarettes Q uit: 05/24/1997 Smokeless Tobacco: Never Comments No Sex and Gender Information Value Date Recorded Sex Assigned at Not on file Legal Sex Female 18:20 EST Gender Identity Not on file Sexual Orientation Not on file documented as of this encounter Miscellaneous Notes * Telephone Encounter - Leann Corona - 03/04/2018 0932 EDT [facility] - MEDICAL OFFICE BUILDING [address] [place] [phone] A confirmation call was made to patient regarding 03/07/2018 physical therapy appointment. A message was left with date/time/location of appointment and phone number to the [facility]. documented in this encounter Plan of Treatment Not on file documented as of this encounter Visit Diagnoses Not on filedocumented in this encounter Care Teams Shirt Sorter Relationship Specialty Start Date End Date Gwen Stanford MD [address] [place] [phone] PCP - General 08/11/11 documented as of this encounter
--- OUTSIDE RECORDS SUMMARY | 2024-05-19 00:36 | XMS_ITS | Encounter Summary ---
[place] [address] Care Team Providers Care Technical Sales Associate Name Role Phone Gwen Stanford MD Primary Care Provider [phone] Reason for Visit * Auth/Cert Specialty Diagnoses [...] Expiration Date Visits Re quested Visits Authorized [id number] 1 1 Encounter Details Date Type Department Care Team (Latest Contact Info) Description 05/05/2016 9:49 AM EST - 05/06/2016 11:25 AM EST Hospital Encounter [place] [address] Naye Aden MD Discharge Disposition: Home Social History Tobacco Use [...] Sign Reading Time Taken Comments Blood Pressure 127/70 05/06/2016 8:47 AM EST Pulse 66 05/06/2016 8:47 AM EST Temperature 36.6 ??C (97.9 ??F) 05/06/2016 8:47 AM ES T Respiratory Rate 16 05/06/2016 8:47 AM EST Oxygen Saturation 97% 05/06/2016 8:47 AM EST Inhaled Oxygen Concentration - - Weight 62.6 kg (138 lb) 05/06/2016 7:30 AM EST Height 154.9 cm (5' 1) 05/05/2016 10:08 AM EST Body Mass Index 26.07 05/05/2016 10:08 AM EST documented in this encounter Discharge Summaries * Liz Brown - 05/06/2016 9:38 AM EST Images from the original note were not included. Discharge Summary Patient Name: Lourdes Castro Patient Age: 61 y.o. Language: Malagasy Race: White Ethnicity: Not nor Admit date: 05/05/2016 Discharge date and time: 05/06/2016 Attending Physician: Naye Aden MD Discharge Physician: Naye Aden MD Follow-up Recommendations for Providers: Follow Up Visit: May 27, 2016 at 3:30pm with Dr. Aden at [facility] [place] Provider Contact Information: Dr. Naye Aden, [facility] Gynecologic Oncology, Discharge Diagnoses (Hospital Problems) and Secondary Diagnoses (Chronic Problems): Active Hospital Problems Diagnosis ??? Fibroid uterus ??? Abnormal uterine bleeding (AUB) ??? Uterine mass Resolved Hospital Problems Diagnosis Date Resolved No resolved problems to display. Active Non-Hospital Problems Diagnosis ??? Former smoker ??? Postmenopausal HRT (hormone replacement therapy) ??? Tendinitis ??? Trigger thumb of left hand Operations/Major Procedures: 05/05/16 Robotically-assisted laparoscopic hysterectomy, bilateral salpingectomy, and pelvic washings History of Presentation: Lourdes Castro is a 61 y.o. woman with a history of depression, and postmenopausal hormone replacement therapy who presented with postmenopausal bleeding and an enlarging uterus. An endometrial biopsy showed benign inactive endometrium without cytologic atypia. Ultrasounds in 2012 and 2015 showed an endometrial stripe of 3.2 mm and 4.2 mm with calcifications along with and enlarging uterus from 7.4to 10 cm and increasing number of fibroids. She presented to [facility] on 05/05/16 for her planned surgery. Hospital Course: Patient was admitted to the hospital for the above procedures. Findings in surgery include: ?? Enlarged fibroid appearing uterus ?? EBL: 25 cc Frozen section revealed multiple leiomyomas with no evidence of malignancy. Final surgical pathology is pending. Her postoperative course was uneventful. By the time of discharge on post op day number 1, her painwas well controlled with oral pain medications, she was tolerating a regular diet, ambulating independently, and voiding without difficulty. She was discharged home with instructions to follow up in 3 weeks and will be notified of pathology results. She was also given extensive instructions regarding activity. Vital signs at Discharge: BP: 127/70, Heart Rate: 66, Temp: 36.6 ??C (97.9 ??F), Resp: 16, BMI (Calculated): 24.6 Height: 154.9 cm (5' 1) (05/05/16 1008) Weight - Scale: 62.6 kg (138 lb) (05/06/16 0730) Functional and Cognitive status: Good/intact Important Studies and Lab Data: Labs: Lab Results Component Value Date CREATININE 0.70 05/05/2016 Studies: 05/05/16: FROZEN SECTION DIAGNOSIS A - Uterus: ?? 1. Multiple leiomyomas with no evidence of malignancy 05/05/16 14:20 Pending Studies and Lab Data: Final Surgical Pathology Pending Discharge Conditions/Prognosis: At baseline functional status Discharge to: Home Updated Allergies/ADRs: Allergies Allergen Reactions ??? Codeine Anxiety ??? Penicillins Anaphylaxis Immunizations Given this Hospitalization: Immunization History Administered Date(s) Administered ??? Td, adult 09/18/2004 Discharge Medications: Your Medications New Medications Dose Details acetaminophen 325 mg Tab Commonly known as: TYLENOL Take 2 tablets by mouth every 6 hours. 650 mg Quantity: 30 tablet Refills: 1 ibuprofen 600 mg Tab Commonly known as: ADVIL;MOTRIN Take 1 tablet by mouth every 6 hours as needed for Pain. 600 mg Quantity: 40 tablet Refills: 0 oxyCODONE 5 mg Tab Commonly known as: ROXICODONE Take 1 tablet by mouth every 3 hours as needed for Pain. 5 mg Quantity: 15 tablet Refills: 0 senna-docusate 8.6-50 mg Tab Commonly known as: PERICOLACE Take 2 tablets by mouth 2 times daily. 2 tablet Quantity: 60 tablet Refills: 11 Continued medications, unchanged Dose Details biotin 300 mcg Tab Take 500 mcg by mouth. 500 mcg Refills: 0 calcium carbonate 648 mg calcium Tab Take 600 mg by mouth 3 times daily (with meals). 600 mg Refills: 0 cholecalciferol (Vitamin D3) 2,000 unit Cap Take by mouth. Generic drug: cholecalciferol (Vitamin D3) Refills: 0 clonazePAM 1 mg Tab Commonly known as: KlonoPIN 1MG = 1 Tablet(s), PO, Once daily,PRN Refills: 0 estrogen (conjugated)-medroxyprogesterone 0.45-1.5 mg Tab Commonly known as: PREMPRO Take 1 tablet by mouth daily. 1 tablet Refills: 0 glucosamine sulfate 500 mg Tab Take by mouth. Refills: 0 Smoking Status at Discharge: History Smoking Status ??? Former Smoker ??? Years: 20.00 ??? Types: Cigarettes ??? Quit date: 04/23/1996 Smokeless Tobacco ??? Never Used Instructions Given to Patient at Discharge: Patient Instructions PATIENT DISCHARGE INSTRUCTIONS Gynecology Oncology phone number: [phone] Call your doctor if you develop: --A fever over 101 degrees --Severe pain --Heavy vaginal bleeding --Increasing pain, redness, or discharge at your incision --It is normal to have light spotting from the vagina for up to 6 weeks following hysterectomy -Follow-up appointment with Dr. Aden on 05/27/2016 at 3:30PM Activity level: No heavy lifting, pushing or pulling for 8 weeks. No sexual intercourse, no tampons, nothing in the vagina for 8 weeks. Walking and stairs are fine. No running, lifting weights, corework-- sit-ups, crunches, pilates, yoga. No strenuous exercise, you need to be able to carry on a conversation while walking or other activity. Diet: You may resume your regular diet. Be sure you drink plenty of fluids. Please use ruby-colace 1-2 tablets twice daily for the entire time that you are taking pain medication to keep your bowel movements soft and regular. If you are constipated or have not had a bowel movement in 3 days, pleaseuse milk of magnesia (or miralax) as directed over the counter. Driving: Do not drive until you are off of all narcotic medications and you are not feeling pain; usually about 2 weeks. Shower/Bath: Showering is fine. Wound Care: Your incisions are closed with dissolvable stitches and surgical glue. The glue will dissolve on its own over time - do not pick at or rub the glue. The stitches do not need to be removed- they will dissolve on their own. Pain medications include ibuprofen (Advil/Motrin), acetaminophen (Tylenol), and oxycodone. For example- you can use ibuprofen and then 3 hours later acetaminophen and rotate. ??? Please use ibuprofen (Advil/Mortrin) 600 mg every 6 hours with food around the clock for the next several days and then after that use it only as needed. ??? You may take acetaminophen (Tylenol) 650mg every 6 hours as needed. Do not exceed 3000mg of acetaminophen (Tylenol) in any 24 hour period. ??? Please use the oxycodone every 4-6 hours as needed for pain that breaks through the ibuprofenand acetaminophen. No driving while using narcotics (oxycodone) as it can make you sleepy. Be sure to use the pericolace while using oxycodone. Please take your medication exactly as prescribed. Read all instructions that come with your medication. ?? Using narcotic pain medication (such as oxycodone, hydromorphone (Dilaudid), morphine, fentanyl,or tramadol) may cause addiction. While addiction is more common in people with a personal or family history of addiction, it can occur in anyone. ?? Taking more than the prescribed amount of medication or using with alcohol or other drugs can cause you to stop breathing resulting in coma, brain damage, or . ?? Opioids (oxycodone, hydromorphone/Dilaudid, morphine, fentanyl, tramadol) can slow reaction time, cause drowsiness, or cloud judgement. It is unsafe for you to drive or operate heavy machinery while taking this medication. ?? Opioids (oxycodone, hydromorphone/Dilaudid, morphine, fentanyl, tramadol) are at risk of being diverted by anyone with access to your home. Opioids should be stored in a safe and secure place, such as a locked cabinet or safe. ?? Unused opioids (oxycodone, hydromorphone/Dilaudid, morphine, fentanyl, tramadol) should be disposed of according to the label or patient information. If there are no specific instructions, medications may be returned to a take- back location or mixed with a small amount of water and an undesirable waste substance such as coffee grounds or cat litter. General Instructions None Future Appointments and Orders Future Appointments Provider Department Dept Phone 05/27/2016 3:30 PM Naye Aden MD Gynecologic Oncology [phone] Discharge References/Attachments None Provider Contact Information: Gwen Stanford MD [phone] documented in this encounter Discharge Instructions * Patient Instructions* Veronika Tam PA - 05/05/2016 2:48 PM EST Images from the original note were not included. PATIENT DISCHARGE INSTRUCTIONS Gynecology Oncology phone number: [phone] Call your doctor if you develop: --A fever over 101 degrees --Severe pain --Heavy vaginal bleeding --Increasing pain, redness, or discharge at your incision --It is normal to have light spotting from the vagina for up to 6 weeks following hysterectomy -Follow-up appointment with Dr. Aden on 05/27/2016 at 3:30PM Activity level: No heavy lifting, pushing or pulling for 8 weeks. No sexual intercourse, no tampons, nothing in the vagina for 8 weeks. Walking and stairs are fine. No running, lifting weights, corework-- sit-ups, crunches, pilates, yoga. No strenuous exercise, you need to be able to carry on a conversation while walking or other activity. Diet: You may resume your regular diet. Be sure you drink plenty of fluids. Please use ruby-colace 1-2 tablets twice daily for the entire time that you are taking pain medication to keep your bowel movements soft and regular. If you are constipated or have not had a bowel movement in 3 days, pleaseuse milk of magnesia (or miralax) as directed over the counter. Driving: Do not drive until you are off of all narcotic medications and you are not feeling pain; usually about 2 weeks. Shower/Bath: Showering is fine. Wound Care: Your incisions are closed with dissolvable stitches and surgical glue. The glue will dissolve on its own over time - do not pick at or rub the glue. The stitches do not need to be removed- they will dissolve on their own. Pain medications include ibuprofen (Advil/Motrin), acetaminophen (Tylenol), and oxycodone. For example- you can use ibuprofen and then 3 hours later acetaminophen and rotate. ??? Please use ibuprofen (Advil/Mortrin) 600 mg every 6 hours with food around the clock for the next several days and then after that use it only as needed. ??? You may take acetaminophen (Tylenol) 650mg every 6 hours as needed. Do not exceed 3000mg of acetaminophen (Tylenol) in any 24 hour period. ??? Please use the oxycodone every 4-6 hours as needed for pain that breaks through the ibuprofenand acetaminophen. No driving while using narcotics (oxycodone) as it can make you sleepy. Be sure to use the pericolace while using oxycodone. Please take your medication exactly as prescribed. Read all instructions that come with your medication. ?? Using narcotic pain medication (such as oxycodone, hydromorphone (Dilaudid), morphine, fentanyl,or tramadol) may cause addiction. While addiction is more common in people with a personal or family history of addiction, it can occur in anyone. ?? Taking more than the prescribed amount of medication or using with alcohol or other drugs can cause you to stop breathing resulting in coma, brain damage, or . ?? Opioids (oxycodone, hydromorphone/Dilaudid, morphine, fentanyl, tramadol) can slow reaction time, cause drowsiness, or cloud judgement. It is unsafe for you to drive or operate heavy machinery while taking this medication. ?? Opioids (oxycodone, hydromorphone/Dilaudid, morphine, fentanyl, tramadol) are at risk of being diverted by anyone with access to your home. Opioids should be stored in a safe and secure place, such as a locked cabinet or safe. ?? Unused opioids (oxycodone, hydromorphone/Dilaudid, morphine, fentanyl, tramadol) should be disposed of according to the label or patient information. If there are no specific instructions, medications may be returned to a take- back location or mixed with a small amount of water and an undesirable waste substance such as coffee grounds or cat litter. documented in this encounter Medications at Time of Discharge Medication Sig Dispensed Refills Start Date End Date acetaminophen (TYLENOL) 325 mg Tablet Take 2 tablets by mouth every 6 hours. 30 tablet 1 05/06/2016 clonAZEpam (KLONOPIN) 1 mg tablet 1MG = 1 Tablet(s), PO, Once daily,PRN 01/12/2006 oxyCODONE (ROXICODONE) 5 mg Tablet Take 1 tablet by mouth every 3 hours as needed for Pain. 15 tablet 05/06/2016 05/27/2016 senna-docusate (PERICOLACE) 8.6-50 mg Tablet Take 2 tablets by mouth 2 times daily. 60 tablet 11 05/06/2016 08/18/2022 ibuprofen (ADVIL;MOTRIN) 600 mg Tablet Take 1 tablet by mouth every 6 hours as needed for Pain. 40 tablet 05/06/2016 05/27/2016 glucosamine sulfate 500 mg Tablet Take by mouth. 08/18/2022 calcium carbonate 648 mg calcium Tablet Take 600 mg by mouth 3 times daily (with meals). 08/18/2022 cholecalciferol, Vitamin D3, (CHOLECALCIFEROL, VITAMIN D3,) 2,000 unit Capsule Take by mouth. 08/18/2022 biotin 300 mcg Tablet Take 500 mcg by mouth. 08/18/2022 estrogen, conjugated,-medroxyprog esterone (PREMPRO) 0.45-1.5 mg per tablet Take 1 tablet by mouth daily. 05/27/2016 documented as of this encounter Progress Notes * Suly Anne RN - 05/06/2016 10:30 AM EST Patient was able to ambulate to the bathroom with a stand by assist, voiding adequate amounts. Painappears under control at this time, IV access sites removed per discharge order. AVS explained at length with patient and spouse present, verbalized understanding. Patient alert to self and situation, VSS and head to toe assessment WDL. Surgical sites intact, no drainage noted, no s/s of infection noted at this time. Patient has only a small amount of vaginal drainage, tanya blood pad provided for patient to change without issue. Educated patient on the s/s of infection to be aware of, verbalized understanding. Patient needed little help getting dressed. Patient's spouse went to pharmacy to spanish moss picker outpatient prescriptions. Patient left with spouse in a wheelchair without issue. * Naye Aden MD - 05/06/2016 6:28 AM EST Images from the original note were not included. Gynecology - Post Op Check Lourdes Castro is a 61 y.o. woman whose PMH is significant for AUB, depression, tendonitis who is post operative day # 1 s/p RATLH, bilateral salpingectomy for fibroid uterus to rule out sarcoma. Findings: ENLARGED FIBROID APPEARING UTERUS. FROZEN = LEIOMYOMA Subjective: She slept most of the night and was quite comfortable until she tried to move this morning. She haddeclined pain medication throughout the night. This morning she is sore especially on the right side and not looking forward to moving again. She ate some jello last evening and has already ordered breakfast this morning. Olivo was removed this morning. She denies chest pain, shortness of breath, fever, chills. Physical Exam: Last Set of Vitals and range of vitals over past 24 hours: Last value Range last 24 hrs Temperature Temp: 36.9 ??C (98.4 ??F) Temp: [36.4 ??C (97.5 ??F)-37.2 ??C (99 ??F)] Heart Rate Heart Rate: 59 Heart Rate: [40-69] Blood Pressure BP: 119/66 BP: (114-132)/(61-79) Respiratory Rate Resp: 16 Resp: [11-18] SpO2 SpO2: 95 % SpO2: [89 %-100 %] UOP 104cc/hr over the last 12 hours Gen: Resting comfortably in bed. NAD. Neuro: Alert and oriented. Cardiac: RRR. No murmurs, rubs, or gallops. Pulm: CTAB. No wheezes, rales, or rhonci. Abd: +BS. Soft. Appropriately tender. No rebound or guarding. Incisions: C/D/I. Wounds visualized no drainage, erythema, or induration. Extremities: No lower extremity edema or calf tenderness, SCDs in place and operating. Laboratory (Last 24 Hours): No results for input(s): WBC, HGB, HCT, PLATELET in the last 168 hours. Recent Labs 05/05/16 1040 BUN 18 CREATININE 0.70 Studies: none Assessment and Plan Lourdes Castro is a 61 y.o. woman whose PMH is significant for AUB, depression, tendonitis who is post operative day # 1 s/p RATLH, bilateral salpingectomy for fibroid uterus to rule out sarcoma. Neuro: Pain moderately well controlled, tylenol, ibuprofen and oxycodone. Alert and oriented. - Home dose of PRN klonipin for anxiety available Cardiovascular: Vital signs wnl. Hemodynamically stable, no evidence of bleeding. Pulmonary: Adequate SpO2 on RA. No concerns - Encourage incentive spirometry GI: Complaint of nausea postop. Denies vomiting, constipation, diarrhea. Tolerating liquid diet, but has appetite for breakfast this morning. -Advance diet as tolerated. -Zofran PRN, Compazine PRN, Pericolace : Olivo is in place draining clear yellow urine. Adequate UOP, ~50cc/hr. -D/C olivo when ambulatory -Monitor intake and output FEK: IVF: LR @100cc/hr. Tolerating PO intake. Endocrine: No Issues ID: Afebrile, received prophylactic antibiotics preop, no evidence of infection -continue to monitor vital signs. Prophylaxis: SCDs while in bed, encourage ambulation, incentive spirometry Dispo: Discharge home later today once voiding and has adequate pain control with ambulation Code Status: Full Code Will DWA Dr. Aden, Hiro Salmon MD PGY1/Liz Brown, PGY3 05/06/2016 [employer] Service Pager: [phone] I have seen and examined the patient and reviewed and edited the resident's above history and I agree with the details as written. The assessment and plan were formulated in discussion with me and I agree with them as documented. Naye Aden MD * Naye Aden MD - 05/05/2016 7:46 PM EST Gynecology - Post Op Check Lourdes Castro is a 61 y.o. woman whose PMH is significant for AUB, depression, tendonitis who is post operative day # 0 s/p RATLH, bilateral salpingectomy for fibroids with postmenopausal hormone replacement therapy. Findings: ENLARGED FIBROID APPEARING UTERUS. FROZEN = LEIOMYOMA Subjective: She complains of nausea, no vomiting.. Pain is controlled; has not taken any PRN medications. She is not yet ambulating with assistance. She is tolerating water, ice chips. She denies chest pain, shortness of breath, fever, chills. Physical Exam: Last Set of Vitals and range of vitals over past 24 hours: Last value Range last 24 hrs Temperature Temp: 36.7 ??C (98.1 ??F) Temp: [36.4 ??C (97.5 ??F)-37.2 ??C (99 ??F)] Heart Rate Heart Rate: 64 Heart Rate: [40-69] Blood Pressure BP: 117/67 BP: (117-132)/(61-79) Respiratory Rate Resp: 16 Resp: [11-18] SpO2 SpO2: 98 % SpO2: [89 %-100 %] Intake/Output Summary (Last 24 hours) at 05/05/161999 Last data filed at 05/05/16 1926 Gross per 24 hour Intake 1600 ml Output 435 ml Net 1165 ml I/O this shift: In: - Out: 150 [Urine:150] UOP at ~50 cc/hr Body mass index is 24.56 kg/(m^2). Gen: Resting comfortably in bed. NAD. Neuro: Alert and oriented. Cardiac: RRR. No murmurs, rubs, or gallops. Pulm: CTAB. No wheezes, rales, or rhonci. Abd: +BS. Soft. Appropriately tender. No rebound or guarding. Incisions: C/D/I. Wounds visualized no drainage, erythema, or induration. : Olivo draining clear yellow urine. Extremities: No lower extremity edema or calf tenderness, SCDs in place and operating. Laboratory (Last 24 Hours): No results for input(s): WBC, HGB, HCT, PLATELET in the last 168 hours. Recent Labs 05/05/16 1040 BUN 18 CREATININE 0.70 Studies: none Assessment and Plan oLurdes Castro is a 61 y.o. woman whose PMH is significant for AUB, depression, tendonitis who is post operative day # 0 s/p RATLH, bilateral salpingectomy for fibroids with postmenopausal hormone replacement therapy. Neuro: Pain well controlled without PRN medications; tylenol and oxycodone. Alert and oriented. - Home dose of PRN klonipin for anxiety available Cardiovascular: Vital signs wnl. Hemodynamically stable, no evidence of bleeding. -Daily CBC Pulmonary: Adequate SpO2 on 1 L NC. No concerns - Encourage incentive spirometry GI: Complaint of nausea postop. Denies vomiting, constipation, diarrhea. Tolerating liquid diet. -Advance diet as tolerated. -Zofran PRN, Compazine PRN, Pericolace : Olivo is in place draining clear yellow urine. Adequate UOP, ~50cc/hr. -D/C olivo when ambulatory -Monitor intake and output FEK: Lytes wnl. IVF: LR @100cc/hr. Tolerating PO intake. -Daily BMP. Endocrine: No Issues ID: Afebrile, received prophylactic antibiotics preop, no evidence of infection -continue to monitor vital signs. Prophylaxis: - SCDs while in bed, encourage ambulation, incentive spirometry Dispo: Pt continues to require inpatient hospitalization. Code Status: Full Code Anay Hernandez MD PGY1 05/05/2016 Patient was discussed with Dr. Fenton, PGY4 I have seen and examined the patient and reviewed and edited the resident's above history and I agree with the details as written. The assessment and plan were formulated in discussion with me and I agree with them as documented. Naye Aden MD * Kayli Tsang RN - 05/05/2016 5:44 PM EST Patient Name: Lourdes Castro Patient Age: 61 y.o. Birthdate: 1955 Admit date: 05/05/2016 Attending Physician: Naye Aden MD Pt arrived from PACU in bed, slightly sedated, opens eyes to voice, oriented x 4, c/o nausea, zofran given. Pt has lap sites x 4 clean and intact, having some lower abdominal cramping, olivo drainingclear yellow urine, taking a few ice chips po. Pt oriented to room and call light, at bedside. * Eileen Buitrago RN - 05/05/2016 3:33 PM EST 1530: patient received from operating room, alarms on and set appropriate for patient, vs's, patient given hydromorphone iv. [id number]: patient more comfortable, vs's, in to visit, patient meets discharge criteria, report called to floor. Anesthesia ok 'd patient to go to room with heart rate 40's -50's, blood pressure nl documented in this encounter H&P Notes * Naye Aden MD - 05/05/2016 10:50 AM EST Inpatient INDEPENDENT PRODUCER - Admission Interval Note I have reviewed the pre-procedure H&P completed by Dr. Aden on 04/23/16. (x) Condition unchanged since H&P originally performed. Interval Note: The patient is doing well today. She has many questions regarding the procedures (robotic assisted total laparoscopic hysterectomy with bilateral salpingectomy, possible staging, possible open) for new uterine tumors likely to be leiomyoma in the setting of HRT, less likely sarcoma. They were all questions were answered. Risks include infection, poor wound healing, bleeding, injuryto surrounding structures which includes bowel, bladder, ureters, vessels and nerves. There is alsoa risk of DVT/Pulmonary embolism, lymphedema, and need for re-operation. The patient signed the consent. Has tolerated percocet in the past but not codeine containing medications. Plan for gent/clinda for abx prophylaxis. A copy of this document will be sent to the patient's Primary Care Physician and/or Referring Physician. Pt was seen with Dr. Keiko BROWN MD 05/05/2016 I have seen and examined the patient and reviewed and edited the resident's above history and I agree with the details as written. The assessment and plan were formulated in discussion with me and I agree with them as documented. Consent obtained and surgical approach and risks reviewed. Will get preop CXR that has not yet beencompleted and then will proceed with surgery. Naye Aden MD documented in this encounter Miscellaneous Notes * Plan of Care - Zuri Childress RN - 05/06/2016 3:59 AM EST Problem: Patient Care Overview Goal: Plan of Care Review Outcome: Ongoing (Interventions Implemented as Appropriate) 05/06/16 0355 Coping/Psychosocial Plan Of Care Reviewed With patient Plan of Care Review Progress improving OUTCOME EVALUATION NOTE: OUTCOME SUMMARY: VSS, afebrile, O2 sats stable on RA, LAp sites CDI, tolerating P intake well, Olivo to BSD Medicated with Tylenol for pain, ambulating with SBA. Alex lambert'd at 0445. Pt due to void. at bedside. PLAN MOVING FORWARD: Void, DC home INDIVIDUALIZED FALL PREVENTION INTERVENTIONS: Patient-specific fall risk factors per assessment: [current deficits]: NA Assistance [level of assistance required for transfers and ambulation]: SBA Supervision [direct monitoring required during toileting and ADLs]: SBA Surveillance [continuous indirect monitoring]: Pulse moiety, purposeful rounding Patient-specific fall prevention interventions for sensory deficits provided, if applicable: NA CPG GOAL OUTCOME EVALUATION: Goal: Fall Prevention-Safe Patient Handling Outcome: Ongoing (Interventions Implemented as Appropriate) 05/05/16 1950 05/06/16 020 Howell Fall Risk History of Falling 0 -- Secondary Diagnosis 15 -- Ambulatory Aids 0 -- Intravenous Therapy/Heparin/Saline Lock 20 -- Gait/Transferring 0 -- Mental Status 0 -- Score 35 -- OTHER Howell Fall Risk Med -- Restraint Interventions Safety Promotion/Fall Prevention -- activity supervised;fall prevention program maintained;nonskid shoes/slippers when out of bed;safety round/check completed Positioning Body Position -- supine;independent Goal: Infection Control Outcome: Ongoing (Interventions Implemented as Appropriate) 05/05/16 1950 05/06/16199 Safety Interventions Isolation Precautions standard precautions maintained -- Infection Prevention -- single patient room provided;rest/sleep promoted Coping Strategies Supportive Measures active listening utilized;verbalization of feelings encouraged -- Goal: Discharge Needs Assessment Outcome: Ongoing (Interventions Implemented as Appropriate) 05/06/16 0355 Discharge Needs Assessment Concerns To Be Addressed no discharge needs identified Readmission Within The Last 30 Days no previous admission in last 30 days Equipment Needed After Discharge none Current Health Anticipated Changes Related to Illness none * Brief Op Note - Naye Aden MD - 05/05/2016 2:10 PM EST Brief Operative Note Patient Name: Lourdes Castro : [id number] MR#: [id number] Case Date: 05/05/2016 Surgeon: Surgeon(s) and Role: * Naye Aden MD - Primary * Liz Brown MD - Resident-Surgeon Chief Preoperative diagnosis: UTERINE MASSES Postoperative diagnosis: UTERINE MASS, HYPERPLASIA TERINE MASSES Procedure(s): LAPAROSCOPIC HYSTERECTOMY WITH BILATERAL SALPINGECTOMY, WASHINGS, ROBOTIC ASSIST (WRVU 15) Anesthesia: General Findings: ENLARGED FIBROID APPEARING UTERUS. FROZEN = LEIOMYOMA Complications: NONE Fluids: SEE ANES Estimated Blood Loss: 25 CC Drains: OLIVO Disposition: awakened from anesthesia, extubated and taken to the recovery room in a stable condition, having suffered no apparent untoward event. Condition: doing well without problems Infection Bundle used? N/A Attestation: Case Date: 05/05/2016 I was present and I participated during the entire procedure (does not need to include opening and closing). (Please see the Surgical Encounter Summary for any Implant and Specimen details pertinent to this patient.) * Op Note - Naye Aden MD - 05/05/2016 1:50 PM EST [facility] [place]ative Note Patient Name: Lourdes Castro : [id number] MR#: [id number] Case Date: 05/05/2016 Surgeon: Surgeon(s) and Role: * Naye Aden MD - Primary * Liz Brown MD - Resident-Surgeon Chief Preoperative diagnosis: UTERINE MASSES Postoperative diagnosis: UTERINE MASSES Procedure(s): LAPAROSCOPY,TOTAL HYSTERECTOMY, WASHINGS, BILATERAL SALPINGECTOMY Anesthesia: General Estimated Blood Loss: 25 CC Specimens removed during surgery: WASHINGS, UTERUS, CERVIX, BOTH TUBES Drains: Surgical Closure: Primary Closure - closure of ALL tissue levels during the original surgery regardless of wires, wickes, drains, or other devices extruding through the incision Disposition: awakened from anesthesia, extubated and taken to the recovery room in a stable condition, having suffered no apparent untoward event. Condition: doing well without problems (Please see the Surgical Encounter Summary for any Implant and Specimen details pertinent to this patient.) HPI/Surgical Indications: Lourdes Castro is a 61 y.o. with ultrasound findings from an outside institution revealing overall enlargement of the uterine size as well as possible development of two new intrauterine masses in the setting of postmenopausal combination hormone replacement therapy and postmenopausal bleeding. Procedure Description: The patient was identified and consent was reaffirmed. She was taken to the operating room and placed in low lithotomy position with yellowfin stirrups after induction of anesthesia. Her arms were tucked at her sides and padded with gelpads in a neurophysiologically neutral position. An exam was conducted and there was an enlarged and globular uterus. An antiseptic preparation of the abdomen, perineum, and vagina was performed and the patient was sterilely draped. A surgical pause was performed, correctly identifying the intended procedures, for this patient. A Olivo catheter was inserted into the bladder. Exam under anesthesia was conducted with findings as above. A Vcare uterine manipulator was placed without perforation. An 8-mm incision was made at the umbilicus, through which a Veress needle was inserted and the abdomen was insufflated to tympany with carbon dioxide gas. An 8mm trocar was then inserted and the camera was placed, verifying a successful atraumatic entry. 2 additional 8-mm trocars and a 12-mm right upper quadrant data analysis assistant port were placed in the usual locations without difficulty, under direct visualization for a total of 4 ports. The patient was placed in steep Trendelenburg position. Using sharp and electrosurgical dissection, the round ligaments were desiccated and divided bilaterally. The fallopian tubes were dissected free of the underlying uterus and detached from the uterus and then they were removed and sent as a permanent specimen. The ovaries appeared normal and were left in situ as per the patient's wishes. Next, the hysterectomy ensued.The utero-ovarian ligaments vessels were cauterized with bipolar cautery and divided. A bladder flap was developed to a point over the upper vagina with sharp and electrosurgical dissection advancing the bladder off of the lower uterine segment, cervix and upper vagina. The uterine vessels were skeletonized and then cauterized with bipolar cautery and divided bilaterally as were the uterosacral ligaments. The hysterectomy was completed by making a circumferential colpotomy incision over the VCare cup with monopolarcautery and then the specimen was withdrawn through the vagina and sent for frozen section. The vaginal cuff was closed in the usual fashion with 2-0 VLoc suture in a running fashion. Once the specimen returned without malignancy, the robot was undocked. The 12-mm port site was closed with 0-Vicryl using a Marvel-Sony ligature passer and the skin incisions were closed with 4-0 Vicryl. Dermaflex was applied to each site. The vagina was inspected and noted to be intact and hemostatic. The patient was returnedto a supine position as anesthesia was discontinued. She was then extubated and taken to the PACU in stable condition, and accompanied by the anesthesiologist and surgeons. Dr. Naye Aden, the attending physician, was present for the entire procedure. Sharp and sponge counts were correct x two. No surgical instrument counts were performed as per [facility] [place] policy. Complications: None. Antibiotics: gentamicin and clindamycin at induction of anesthesia (PCN allergic). DVT Prophylaxis: ICDs continuously applied to the lower extremities. Infection Bundle used? N/A Infection Bundle used? N/A Attestation: Case Date: 05/05/2016 I was present and I participated during the entire procedure (does not need to include opening and closing). NAYE ADEN MD 05/05/2016 documented in this encounter Plan of Treatment Upcoming Encounters Date Type Department Care Team (Late st Contact Info) Description 06/29/2024 1:40 PM EST Appointment Mammography/[place] [address] Gwen Stanford MD [facility] [address] [address] 09/11/2024 10:00 AM EDT Office Visit Dermatology at [address] [phone] Su Rosas MD [facility] [address] [address] documented as of this encounter Procedures Procedure Name Priority Date/Time Associated Diagnosis Comments SPECIMEN TO PATHOLOGY STAT 05/05/2016 1:38 PM EST SURGICAL PATHOLOGY REPORT Routine 05/05/2016 1:11 PM EST SPECIMEN TO PATHOLOGY Routine 05/05/2016 1:11 PM EST NON-SURVEY PARTY CHIEF FINAL REPORT Routine 05/05/2016 1:10 PM EST CYTOPATHOLOGY NON-GYNECOLOGICAL Routine 05/05/2016 1:10 PM EST ROBOTIC LAPAROSCOPY,TOTAL HYST, UTERUS<250GM, REM TUBE &/OR OVARY (WRVU 15) 05/05/2016 12:18 PM EST UTERINE MASS, HYPERPLASIA XR CHEST ONE VIEW STAT 05/05/2016 11: 56 AM EST CREATININE STAT 05/05/2016 10:40 AM EST BUN STAT 05/05/2016 10:40 AM EST POCT HGB Routine 05/05/2016 10:34 AM EST ECG SCAN 05/05/2016 12:00 AM EST documented in this encounter Results * Specimen to Pathology (surgical or derm) (05/05/2016 1:38 PM EST) AP Specimen 05/05/2016 1:38 PM EST 05/05/2016 1:38 PM EST Narrative [facility] - 05/05/2016 1:38 PM EST Specimen requisition ordered. ??Separate Pathology report to follow Naye Aden MD PATHOLOGY/CYTOLOGY O RDERABLES [facility] [place] [address] * Surgical Pathology Report (05/05/2016 1:11 PM EST) Final Diagnosis [id number] ?Location: [facility]; [address] The signing pathologist has (i) examined the relevant preparation(s) for the specimen(s) and (ii) rendered or confirmed the diagnosis(es). . ?Surgical Pathology DIAGNOSIS A - Right and left fallopian tubes: ??1. Unremarkable fallopian tubes B - Uterus and cervix: ??1. Chronic cervicitis and squamous metaplasia ??2. Frequent endocervical tunnel clusters ??3. Benign endometrium ??4. Adenomyosis ??5. Multiple leiomyomas Electronically signed by: ??Emelina HENAO, Abdulaziz Rondon Verified: ??05/11/2016 ?Pathologist DISCUSSION No evidence of hyperplasia or malignancy was identified in this specimen. CLINICAL INFORMATION Specimen Submitted: A - Bilateral fallopian tubes B - Uterus cervix for frozen section Clinical History: Uterine mass, hyperplasia Clinical Diagnosis: Same SPECIMEN PROCESSING A - ??Labeled/Fixativ e: Bilateral fallopian tubes, fresh. Quantity/Size: Two, 3.2 x 2.3 x 1.3 cm. Tissue Description: Two unoriented fallopian tubes with a smooth lavender and purple outer surface. ??On sectioning both have patent lumens and no mass lesions are identified grossly Sections/Processi ng: Distributor Operator sections of both fallopian tubes are submitted (R1) B - Labeled/Fixative: Uterus cervix, fresh. Qty/Size/Weight: Single, 9.5 x 6.4 x 4.8 cm, 134 g. Specimen Description: Intact simple hysterectomy. UTERUS Endometrium: 0.1 cm thick, red and velvety. Myometrium: 2.5 cm thick, with numerous well-circumscribe d white firm nodules ranging in size from 0.2-2.3 cm. ??On sectioning the white nodules have a whorled appearance and some are very calcified. Serosa: Smooth, brown and glistening with numerous bulges from the myometrial lesions. Cervix: 3.2 x 3.1 cm, smooth, cheek and glistening with a patent os. OVARIES AND FALLOPIAN TUBES SECTIONS/PROCESSI NG: A access service representative section is submitted for frozen section. (1) frozen section residue of FS 1, access service representative sections of nodules; (2) frozen section residue of FS 2, access service representative sections of nodules (3) anterior cervix; . SPECIMEN PROCESSING (4) posterior cervix; (5-8) anterior lower uterine segment; (9-12) ??Posterior lower uterine segment; (13-22) full-thickness sections of the anterior endometrium; (23-26) full thickness sections of the posterior endometrium; (27-28 through 35-36) full thickness sections of the posterior endometrium, split; (37-39) Distributor Operator sections of myometrial nodules. ??(R39) ??njo ?Frozen Section FROZEN SECTION DIAGNOSIS A - Uterus: ??1. Multiple leiomyomas with no evidence of malignancy 05/05/16 14:20 Electronically signed by: ??Abdulaziz Tarango MD Verified: ??05/05/2016 ?Pathologist This intraoperative consultation should be interpreted as a preliminary diagnosis pending review of the entire specimen and special studies, if any. 05/11/2016 4:30 PM EST [facility] FALLOPIAN TUBE STRUCTURE / Unknown 05/05/2016 1:11 PM EST 05/05/2016 1:11 PM EST Uterine Corpus 05/05/2016 1: 11 PM EST 05/05/2016 1:11 PM EST Naye Aden MD PATHOLOGY/CYTOLOGY O JAYLIN Performing Organization Address [facility] de Phone Number [facility] [place] [address] * Specimen to Pathology (surgical or derm) (05/05/2016 1:11 PM EST) AP Specimen 05/05/2016 1:11 PM EST 05/05/2016 1:11 PM EST Narrative [facility] - 05/05/2016 1:11 PM EST Specimen requisition ordered. ??Separate Pathology report to follow Naye Aden MD PATHOLOGY/CYTOLOGY O JAYLIN Performing Organization Address [facility] de Phone Number [facility] [place] [address] * Non-Cotton Weigher Operator Final Report (05/05/2016 1:10 PM EST) Diagnosis Discussion [id number] ?Location: [facility]; [facility]; The signing pathologist has (i) examined the relevant preparation(s) for the specimen(s) and (ii) rendered or confirmed the diagnosis(es). . ? Non-Cotton Weigher Operator Final DIAGNOSIS Negative for Malignancy Electronically signed by: ??Yomaira HENAO, Francisco Kearns Verified: ??05/14/2016 ?Pathologist DISCUSSION Pelvic Washings: Mesothelial cells, lymphocytes, macrophages, and neutrophils. ??Cell block is paucicellular. Please correlate with concurrent specimen [id number]. CLINICAL INFORMATION Specimen Source : Pelvic Washings Pertinent Clinical Data and Significant Therapy: Uterine mass, hyperplasia Clinical Impression : Pelvic washings Pertinent Radiologic Findings ??: (not provided) Gross Description: ?? Received ??fresh, approximately 70 mL total volume of ?? cloudy, yellow fluid. ?? Total Preparation: Liquid Based Prep 1; Cell Block 1. 05/14/2016 4:58 PM EST [facility] Pelvic Washing 05/05/2016 1: 10 PM EST 05/05/2016 1:10 PM EST Naye Aden MD PATHOLOGY/CYTOLOGY O JAYLIN Performing Organization Address [facility] Co de Phone Number [facility] [place] [address] * Cytopathology Non-Gynecological (05/05/2016 1:10 PM EST) AP Specimen 05/05/2016 1:10 PM EST 05/05/2016 1:10 PM EST Narrative [facility] - 05/05/2016 1:10 PM EST Specimen requisition ordered. ??Separate Pathology report to follow Naye Aden MD PATHOLOGY/CYTOLOGY O RDVICTORINA Performing Organization Address [facility] Co de Phone Number [facility] [place] [address] * XR Chest PA or AP 1 view (05/05/2016 11:56 AM EST) Anatomical Region Laterality Modality Chest N/A Digital Radiogra phy Impressions 05/05/2016 12:05 PM EST Single AP view of the chest is within normal limits. Narrative 05/05/2016 12:05 PM EST EXAMINATION: XR CHEST PA OR AP 1 VIEW CLINICAL HISTORY: uterine mass, question mets TECHNIQUE: Single AP chest. COMPARISON: None FINDINGS: Lungs are clear. No pleural effusion. Normal size of the heart and width of the mediastinum. No osseous abnormality identified. Procedure Note Nohemi Apodaca MD - 05/05/2016 EXAMINATION: XR CHEST PA OR AP 1 VIEW CLINICAL HISTORY: uterine mass, question mets TECHNIQUE: Single AP chest. COMPARISON: None FINDINGS: Lungs are clear. No pleural effusion. Normal size of the heart and widthof the mediastinum. No osseous abnormality identified. IMPRESSION Single AP view of the chest is within normal limits. Naye Aden MD IMG DX ORDERABLES * Creatinine (05/05/2016 10:40 AM EST) Creatinine 0.70 0.70 - 1.20 mg/dL [facility] Comment: Please note that the pediatric reference intervals supplied above were not validated at [facility]. Results from pediatric patients should be interpreted in conjunction to the patient's age, height and muscle mass. Est Glomerular Filtration Rate >60 >=60 [facility] Comment: This estimated GFR (eGFR) value was calculated using the MDRD equation which has been validated on patients between the ages of 18 and 70. The MDRD should not be used to assess kidney function in patients < 18 years of age or in patients with extremes of body mass, or in patients with acute kidney failure. This value should be multiplied by 1.2 for patients. For further information please copy and paste the following links into your internet browser. [email or web address] [email or web address] Blood specimen (specimen) 05/05/2016 10:40 AM EST 05/05/2016 10:49 AM EST Narrative Resulting Agency Comment Spec In Lab Xenia Grey MD CHEMISTRY ORDERABLES [facility] [place] [address] * BUN (05/05/2016 10:40 AM EST) Blood Urea Nitrogen 18 8 - 18 mg/dL [facility] Blood specimen (specimen) 05/05/2016 10:40 AM EST 05/05/2016 10:49 AM EST Narrative Resulting Agency Comment Spec In Lab Xenia Grey MD CHEMISTRY ORDERABLES [facility] [place] [address] * POCT HGB (05/05/2016 10:34 AM EST) POC Hemoglobin 16.0g/dL g/dL Comment:16.0g/dL 05/05/2016 10:3 4 AM EST Xenia Grey MD POINT OF CARE TEST O RDERABLES * SCAN DOC: ECG (05/05/2016 12:00 AM EST) Scanning Provider MEDIA MGR SCAN EXT O RDR/RSLT documented in this encounter Visit Diagnoses Diagnosis Fibroid uterus Leiomyoma of uterus, unspecified Abnormal uterine bleeding (AUB) Uterine mass Other specified symptom associated with female genital organs documented in this encounter Administered Medications Inactive Administered Medications - up to 3 most recent administrations Medication Order MAR Action Action Date Dose Rate Site acetaminophen (TYLENOL) tablet 650 mg 650 mg, Oral, EVERY 6 HOURS PRN, Starting on Wed05/05/16 at 1729, Until Wed05/06/16 at 0623, Pain, Use acetaminophen first, Routine Given 05/05/2016 11:51 PM EST 650 mg acetaminophen (TYLENOL) tablet 650 mg 650 mg, Oral, EVERY 6 HOURS, First dose (after last modification) on Wed05/06/16 at 0645, Until Discontinued, Use acetaminophen first, Routine Given 05/06/2016 6:45 AM EST 650 mg clonazePAM (KlonoPIN) tablet 0.25 mg 0.25 mg, Oral, DAILY PRN, Starting on Wed05/05/16 at 2001, Until Wed05/06/16 at 1326, Anxiety, Routine HYDROmorphone (DILAUDID) syringe 0.2-0.4 mg 0.2-0.4 mg, Intravenous, EVERY 5 MIN PRN, Pain, Starting on Wed05/05/16 at 1414, Until Wed05/05/16 at 1658, For moderate pain (4-6) give: 0.2 mg every 5 minute prn For severe pain (7-10) give: 0.4 mg every 5 minutes prn Maximum dose: 4 mg per hour Hold for respiratory rate less than 10 per minute., PACU Recovery Given 05/05/2016 4:01 PM EST 0.4 mg Given 05/05/2016 3:50 PM EST 0.4 mg Given 05/05/2016 3:41 PM EST 0.4 mg ibuprofen (ADVIL;MOTRIN) tablet 600 mg 600 mg, Oral, EVERY 6 HOURS, First dose on Wed05/06/16 at 0630, Until Discontinued, Administer orally with milk or food to minimize GI irritation. Maximum dose of 3200 mg from all sources in 24 hours, Routine Given 05/06/2016 6:30 AM EST 600 mg lactated ringers infusion 1,000 mL 1,000 mL, at 100 mL/hr, Intravenous, CONTINUOUS, Starting on Wed05/05/16 at 1530, Until Wed05/06/16 at 1326 New Bag 05/05/2016 11:56 PM EST 1,000 mLs 100 mL/hr New Bag 05/05/2016 3:18 PM EST 1,000 mLs 100 mL/hr ondansetron (ZOFRAN) injection 4 mg 4 mg, Intravenous, EVERY 8 HOURS PRN, Starting on Wed05/05/16 at 1729, Until Wed05/06/16 at 1326, Nausea, Routine Given 05/05/2016 5:39 PM EST 4 mg oxyCODONE (ROXICODONE) immediate release tablet 5 mg 5 mg, Oral, EVERY 3 HOURS PRN, Starting on Wed05/05/16 at 1506, Until Wed05/06/16 at 0630, Pain, May repeat once within 30-60 minutes if pain unrelieved., Routine Given 05/06/2016 4:44 AM EST 5 mg oxyCODONE (ROXICODONE) immediate release tablet 5-10 mg 5-10 mg, Oral, EVERY 4 HOURS PRN, Starting on Wed05/06/16 at 0645, Until Wed05/06/16 at 1326, Pain, May repeat once within 30-60 minutes if pain unrelieved. Give 5 mg for mild pain 1-4, 10 mg for severe pain 5-10., Routine Given 05/06/2016 6:48 AM EST 5 mg prochlorperazine (COMPAZINE) injection 10 mg 10 mg, Intravenous, EVERY 6 HOURS PRN, Starting on Wed05/05/16 at 1937, Until Wed05/06/16 at 1326, Nausea, Routine Given 05/05/2016 7:53 PM EST 10 mg senna-docusate (PERICOLACE) 8.6-50 mg per tablet 2 tablet 2 tablet, Oral, 2 TIMES DAILY, First dose on Wed05/05/16 at 2100, Until Discontinued, Routine Given 05/06/2016 8:49 AM EST 2 tablets sodium chloride 0.9 % flush 5 mL 5 mL, Intravenous, 2 TIMES DAILY, First dose on Wed05/05/16 at 2100, Until Discontinued, Routine Given 05/06/2016 8:49 AM EST 10 mLs documented in this encounter Active and Recently Administered Medications Times are shown in EST. Scheduled Medication Order 05/04/2016 05/05/2016 05/06/2016 acetaminophen (TYLENOL) tablet 650 mg 650 mg, Oral, EVERY 6 HOURS, First dose (after last modification) on Wed05/06/16 at 0645, Until Discontinued, Use acetaminophen first, Routine 0645 (Given - Provid er: Zuri Childress RN) clindamycin (CLEOCIN) 900mg in dextrose 5% 50mL (COMPLETED) 900 mg, Intravenous, ONCE, 1 dose, On Wed05/05/16 at 1100, Administer over 30 Minutes, Give over 30-60 minutes. Do not exceed 30mg/minute. Redose every 6 hours if CrCl is greater than 20. Redose every 6 hours if CrCl is less than 20., Day of Surgery (Day of Procedure), Indication for (Active or Suspected): Prophylaxis 1248 (Given - Provider: Chen Martins CRNA) gentamicin (GARAMYCIN) 261.6 mg in sodium chloride 0.9% 106.54 mL (COMPLETED) 261.6 mg (rounded from 261.5 mg = 5 mg/kg/dose ? 52.3 kg Adjusted weight), Intravenous, ONCE, 1 dose, On Wed05/05/16 at 1100, Administer over 60 Minutes, Consider alternative if CrCl is less than 20 or between 20-50., Day of Surgery (Day of Procedure), Indication for (Active or Suspected): Prophylaxis 1245 (New Bag - Provider: Chen Martins CRNA - Comment: IV slowly.)1302 (New Bag - Provider: Chen Martins CRNA) ibuprofen (ADVIL;MOTRIN) tablet 600 mg 600 mg, Oral, EVERY 6 HOURS, First dose on Wed05/06/16 at 0630, Until Discontinued, Administer orally with milk or food to minimize GI irritation. Maximum dose of 3200 mg from all sources in 24 hours, Routine 0630 (Given - Provid er: Zuri Childress RN) senna-docusate (PERICOLACE) 8.6-50 mg per tablet 2 tablet 2 tablet, Oral, 2 TIMES DAILY, First dose on Wed05/05/16 at 2100, Until Discontinued, Routine 2100 (Not Given - Provider: Zuri Childress RN - Reason: Patient/family refused) 0849 (Given - Provider: Suly Anne RN) sodium chloride 0.9 % flush 5 mL 5 mL, Intravenous, 2 TIMES DAILY, First dose on Wed05/05/16 at 2100, Until Discontinued, Routine 2100 (Not Given - Provider: Zuri Childress RN - Reason: See comment - Comment: infusing) 0849 (Given - Provider: Suly Anne RN) Continuous Medication Order 05/04/2016 05/05/2016 05/06/2016 lactated ringers infusion 1,000 mL 1,000 mL, at 100 mL/hr, Intravenous, CONTINUOUS, Starting on Wed05/05/16 at 1530, Until Wed05/06/16 at 1326 1518 (New Bag - Provider: Eileen Buitrago RN)2356 (New Bag - Provider: Zuri Childress RN) lactated ringers infusion 1,000 mL (CANCELED) 1,000 mL, at 100 mL/hr, Intravenous, CONTINUOUS, Starting on Wed05/05/16 at 1045, Until Wed05/05/16 at 1506, Day of Surgery (Day of Procedure) 1200 (New Bag - Provider: Chen Martins CRNA)1345 (Anesthesia Volume Adjustment - Provider: Chen Martins CRNA) PRN Medication Order 05/04/2016 05/05/2016 05/06/2016 acetaminophen (TYLENOL) tablet 650 mg (CANCELED) 650 mg, Oral, EVERY 6 HOURS PRN, Starting on Wed05/05/16 at 1729, Until Wed05/06/16 at 0623, Pain, Use acetaminophen first, Routine 2351 (Given - Provider: Zuri Childress RN) BUpivacaine (PF) (MARCAINE) 0.5 % (5 mg/mL) injection (CANCELED) ONCE PRN, Starting on Wed05/05/16 at 1451, Until Wed05/06/16 at 1326, Intra-Operative (Intra-Procedure), Routine 1451 (Given - Provider: Naye Aden MD) clonazePAM (KlonoPIN) tablet 0.25 mg 0.25 mg, Oral, DAILY PRN, Starting on Wed05/05/16 at 2001, Until Wed05/06/16 at 1326, Anxiety, Routine HYDROmorphone (DILAUDID) injection 0.2 mg 0.2 mg, Intravenous, ONCE PRN, 1 dose, Starting on Wed05/05/16 at 1729, Until Wed05/06/16 at 1326, Pain, severe or breakthrough pain, Routine HYDROmorphone (DILAUDID) syringe 0.2-0.4 mg (CANCELED) 0.2-0.4 mg, Intravenous, EVERY 5 MIN PRN, Pain, Starting on Wed05/05/16 at 1414, Until Wed05/05/16 at 1658, For moderate pain (4-6) give: 0.2 mg every 5 minute prn For severe pain (7-10) give: 0.4 mg every 5 minutes prn Maximum dose: 4 mg per hour Hold for respiratory rate less than 10 per minute., PACU Recovery 1516 (Given - Provider: Eileen Buitrago RN)1525 (Given - Provider: Eileen Buitrago RN)1534 (Given - Provider: Eileen Buitrago RN)1541 (Given - Provider: Eileen Buitrago RN)1550 (Given - Provider: Eileen Buitrago RN)1601 (Given - Provider: Eileen Buitrago RN) lidocaine (XYLOCAINE) 10 mg/mL (1 %) injection 3 mg 3 mg (0.3 mL), Subcutaneous, ONCE PRN, 1 dose, Starting on Wed05/05/16 at 1729, Until Wed05/06/16 at 1326, for discomfort with PIV insertion, Routine ondansetron (ZOFRAN) injection 4 mg 4 mg, Intravenous, EVERY 8 HOURS PRN, Starting on Wed05/05/16 at 1729, Until Wed05/06/16 at 1326, Nausea, Routine 1739 (Given - Provider: Kayli Tsang RN) oxyCODONE (ROXICODONE) immediate release tablet 5 mg 5 mg, Oral, EVERY 3 HOURS PRN, Starting on Wed05/05/16 at 1506, Until Wed05/06/16 at 0630, Pain, May repeat once within 30-60 minutes if pain unrelieved., Routine 0444 (Given - Provid er: Zuri Childress RN) oxyCODONE (ROXICODONE) immediate release tablet 5-10 mg 5-10 mg, Oral, EVERY 4 HOURS PRN, Starting on Wed05/06/16 at 0645, Until Wed05/06/16 at 1326, Pain, May repeat once within 30-60 minutes if pain unrelieved. Give 5 mg for mild pain 1-4, 10 mg for severe pain 5-10., Routine 0648 (Given - Provid er: Zuri Childress RN - Comment: dose verified with Rosalva Costa RN,) prochlorperazine (COMPAZINE) injection 10 mg 10 mg, Intravenous, EVERY 6 HOURS PRN, Starting on Wed05/05/16 at 1937, Until Wed05/06/16 at 1326, Nausea, Routine 195 (Given - Provider: Zuri Childress RN) sodium chloride 0.9 % flush 5-20 mL 5-20 mL, Intravenous, EVERY 1 MIN PRN, Starting on Wed05/05/16 at 1729, Until Wed05/06/16 at 1326, flush, Flush pertains to all indwelling lines. Flush per protocol found in the job aid using the link provided on this medication record., Routine documented in this encounter Care Teams Technical Sales Associate Relationship Specialty Start Date End Date Gwen Stanford MD [address] [facility] [address] [place] [address] PCP - General 04/15/10 documented as of this encounter
--- OUTSIDE RECORDS SUMMARY | 2024-05-19 00:36 | XMS_ITS | Encounter Summary ---
Author Organization [facility] Address [address] [place] [address] Care Team Providers Care Range Conservationist Name Role Phone Unavailable Primary Care Provider Unavailabl e Encounter Details Date Type Department Care Team (Late st Contact Info) Description 08/04/2011 Results Only [facility] Laboratory Services - [facility] ([facility]) [address] [place], [place] [id number] Gwen Stanford MD [address] [place] [address] [address] [place] [address] Social History Tobacco Use Types Packs/Day Years [...] Diagnosis Comments PAP TEST- RESULT ONLY Routine 08/04/2011 0:00 EDT documented in this encounter Results * PAP TEST- RESULT ONLY (08/04/2011 0:00 EDT) Pathology Report: CYTOPATHOLOGY REPORT Reports generated via electronic interface contain original data; however they are lacking the format of the original report. Caution should be taken when reading/interpreti ng unformatted reports. Name: ? LOURDES CASRTO ? Accession #: ? [id number] ? : ? 1955 (Age: 56) ??F ?Collect Date: ? 08/04/2011 ? Location: ? [facility] ? Receive Date: ? 08/05/2011 ? Provider: GWEN STANFORD MD Copy to: ? Final Report SPECIMEN ADEQUACY ? Satisfactory for Evaluation - transformation zone component present GENERAL CATEGORIZATION ? Epithelial Cell Abnormality INTERPRETATION ? Squamous Cell Abnormality - Atypical squamous cells, undetermined significance (ASC-US). 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 EDUCATIONAL NOTES/RECOMMENDATI ONS ? [facility] recommends following the 2006 Consensus Guidelines for the Management of Women with Abnormal Cervical Cancer Screening Tests (JLGTD, 2007;11(4):201-222 ). ??Consensus guidelines are available online at www.ASCCP.org. Menstural/Pregnanc y Status: ??Post Menopausal Specimen/Source: ??Pap Test, Cervix/Endocervix, ThinPrep Imaging System with manual evaluation Document reviewed and electronically signed by: ? NIKO ACUÑA MD ? Report ??Date: 08/07/2011 16:51 HPV with Pap Test ? Date Ordered: ? 08/07/2011 ? Status: ?? Signed Out ?Date Complete: ? 08/12/2011 ? By: ??System Interface ? Date Reported: ? 08/12/2011 ? Interpretation RESULT: Positive for one or more of HPV types 16,18,31,33,35,39, 45, 51,52,56,58,59, or 68. These high/intermediate risk HPV types are associated with some squamous intraepithelial lesions and cervical cancers. Comments Document reviewed and electronically signed by: ? System Interface ? Report date: 08/12/2011 By the signature above, the attending physician certifies that he/she has personally conducted a gross and/or microscopic examination of the described specimens and rendered or confirmed the above diagnosis. End of Report ANTONI PAZ 08/04/2011 08/05/2011 us Gwen Stanford MD PATHOLOGY ORDERABLES Final Result ANTONI PAZ [address] [place] [address] documented in this encounter Visit Diagnoses Not on filedocumented in this encounter
--- OUTSIDE RECORDS SUMMARY | 2024-05-19 00:36 | XMS_ITS | Encounter Summary ---
Author Organization [facility] [place] [address] Care Team Providers Care Rehab Office Coordinator Name Role Phone Gwen Stanford MD Primary Care Provider [phone] Encounter Details Date Type Department Care Team (Late st Contact Info) Description 10/19/2012 12:50 PM EDT - 10/19/2012 11:59 PM EDT Hospital Encounter XRay at [address] [place] [address] Hand pain Social History Tobacco Use Types Packs/Day Years Used Date Smoking Tobacco: Former Smokeless Tobacco: Never Sex and Gender Information Value Date Recorded [...] daily. 05/27/2016 documented as of this encounter Plan of Treatment Upcoming Encounters Date Type Department Care Team (Late st Contact Info) Description 06/29/2024 1:40 PM EST Appointment Mammography/DXA at [facility] [place] [address] Gwen Stanford MD [address] [place] [address] 09/11/2024 10:00 AM EDT Office Visit Dermatology at [facility] [address] [place] [address] Su Rosas MD [facility] [address] [place] [address] documented as of this encounter Procedures Procedure Name Priority Date/Time Associated Diagnosis Comments XR HANDS MIN 3 VIEWS BILAT Routine 10/19/2012 1:19 PM EDT Pain in limb documented in this encounter Results * XR Bilateral Hands Minimum 3 Views (10/19/2012 1:19 PM EDT) Anatomical Region Laterality Modality Hand Bilateral Radiographic Radha ging 10/19/2012 1:19 PM EDT Narrative 10/19/2012 4:46 PM EDT Examination BILATERAL HANDS MIN 3 VIEWS Clinical History R HAND PAIN; L THUMB PAIN Comparison None Technique 3 views of both hands. Findings Joint spaces are overall well preserved. ??No significant proliferative degenerative changes. ??No erosions. ??Alignment is normal. Impression No x-ray finding that would explain the patient's right hand pain or left thumb pain. Procedure Note Nohemi Apodaca MD - 10/19/2012 Examination BILATERAL HANDS MIN 3 VIEWS Clinical History R HAND PAIN; L THUMB PAIN Comparison None Technique 3 views of both hands. Findings Joint spaces are overall well preserved. No significant proliferative degenerative changes. No erosions. Alignment is normal. Impression No x-ray finding that would explain the patient's right hand pain or leftthumb pain. Abraham Adam MD IMG DX ORDERABLES documented in this encounter Visit Diagnoses Diagnosis Hand pain Pain in limb documented in this encounter Care Teams Rehab Office Coordinator Relationship Specialty Start Date End Date Gwen Stanford MD [address] [place] [address] PCP - General 04/15/10 documented as of this encounter
--- OUTSIDE RECORDS SUMMARY | 2024-05-19 00:36 | XMS_ITS | Encounter Summary ---
Author Organization [facility] Address [address] [place] [address] Care Team Providers Care Reproductive Endocrinologist Name Role Phone Gwen Stanford MD Primary Care Provider [phone] Reason for Visit * Reason Onset Date Comments Other 09/10/2017 Encounter Details Date Type Department Care Team (Late st Contact Info) Description 09/10/2017 Telephone [facility] Pelvic Medicine and Reconstructive Surgery - Medical Office [address] [address] Janet Hunt MD 2 [facility] Medical Office [facility], [address] [address] Other Social History Tobacco Use Types Packs/Day Years Used Date Smoking Tobacco: Former Cigarettes Q uit: 05/24/1997 Smokeless Tobacco: Never Comments No Sex and Gender Information Value Date Recorded Sex Assigned at Not on file Legal Sex Female 18:20 EST Gender Identity Not on file Sexual Orientation Not on file documented as of this encounter Miscellaneous Notes * Telephone Encounter - Janette Frank RN - 09/20/2017 1511 EDT The patient indicates understanding of these issues and agrees with the plan. * Telephone Encounter - Janette Frank RN - 09/20/2017 1131 EDT Per MD she recommends that pt have 1 PT visit with Gee Zaomra PT prior to scheduled surgery. This is scheduled for 12/28/17. * Telephone Encounter - Rolanda Wyman RN - 09/10/2017 1405 EDT Pt had many questions in regards to possible A/P repair. Most of the questions were in regards to activity restrictions. I explained the immediate post op activity restrictions and advised her that she should be aware that life long heavy lifting, pushing and pulling can increase the chance of prolapse recurrence. Pt requesting sooner appt for UDS. I told her it is likely sooner appts will open up and our schedulers would be in touch with her. Pt also asked about the need for PFPT since she already did PFPT less than a year ago and she is diligent about doing the exercises. It was done outside of [facility]. She states she thought she had brought the PT notes with her to be scanned the day of her appt but I was not able to find PT notes in what was scanned. She states she will mail them to us. I told her I would check with Dr Hunt to see if she feels the PFPT would be necessary. documented in this encounter Plan of Treatment Not on file documented as of this encounter Visit Diagnoses Not on filedocumented in this encounter Care Teams Reproductive Endocrinologist Relationship Specialty Start Date End Date Gwen Stanford MD [address] [place] [address] [address] [place] [address] PCP - General 08/11/11 documented as of this encounter
--- OUTSIDE RECORDS SUMMARY | 2024-05-19 00:36 | XMS_ITS | Encounter Summary ---
Author Organization [facility] Address [address] [place] [address] Care Team Providers Care Expense Clerk Name Role Phone Gwen Stanford MD Primary Care Provider [phone] Reason for Visit * Reason Onset Date Comments Appointment Related 11/01/2017 Encounter Details Date Type Department Care Team (Late st Contact Info) Description 11/01/[address] [facility] Rehabilitation Therapy - Medical Office Building [address] [place] [id number] Therapy, Physical Appointment Related Social History Tobacco Use Types Packs/Day Years Used Date Smoking Tobacco: Former Cigarettes Q uit: 05/24/1997 Smokeless Tobacco: Never Comments No Sex and Gender Information Value Date Recorded Sex Assigned at Not on file Legal Sex Female 18:20 EST Gender Identity Not on file Sexual Orientation Not on file documented as of this encounter Miscellaneous Notes * Telephone Encounter - Parul Bowles - 11/01/[address] [facility] REHABIL[facility]ATION THERAPY - MEDICAL OFFICE BUILDING [address] [place] [phone] A confirmation call was made to patient regarding 11/02/17 1 pm physical therapy appointment. A message was left with date/time/location of appointment and phone number to the [facility]. documented in this encounter Plan of Treatment Not on file documented as of this encounter Visit Diagnoses Not on filedocumented in this encounter Care Teams Expense Clerk Relationship Specialty Start Date End Date Gwen Stanford MD [address] [place] [id number] PCP - General 08/11/11 documented as of this encounter
--- OUTSIDE RECORDS SUMMARY | 2024-05-19 00:36 | XMS_ITS | Encounter Summary ---
[place] [address] Care Team Providers Care Switch Repairer Name Role Phone Gwen Stanford MD Primary Care Provider [phone] Reason for Visit * Auth/Cert Specialty Diagnoses / Procedures Referred By Letitia gtz Referred To Contact Diagnoses UTERINE MASS, HYPERPLASIA Procedures PRO LAPAROSCOPY W TOT HYSTERECTUTERUS <=250 GRAM W TUBE/OVARY PRO LAP, PELVIC LYMPHADENECTOMY/BX LAPAROSCOPY,TOTAL HYST, UTERUS<250GM, REM TUBE &/OR OVARY, ROBOTIC ASSIST LAPAROSCOPY,W\BILATERAL TOTAL PELVIC LYMPHADENECTOMY, PERIAORTIC LYMPH NODE SAMPLING, ROBOTIC MODIFIER ROBOT,DAVINCI XI Referral ID Status Reason Start Date Expiration Date Visits Re quested Visits Authorized [id number] 1 1 Encounter Details Date Type Department Care Team (Late st Contact Info) Description 05/05/2016 10:56 AM EST - 05/05/2016 2:22 PM EST Surgery [place] [phone] Naye Aden MD ROBOTIC LAPAROSCOPY,TOTAL HYST, UTERUS<250GM, REM TUBE &/OR OVARY (WRVU 15) Social History Tobacco Use Types Packs/Day Years [...] Sign Reading Time Taken Comments Blood Pressure 120/76 05/05/2016 10:08 AM EST Pulse 69 05/05/2016 10:08 AM EST Temperature 37.2 ??C (99 ??F) 05/05/2016 10:08 AM EST Respiratory Rate 18 05/05/2016 10:08 AM EST Oxygen Saturation 100% 05/05/2016 10:08 AM EST Inhaled Oxygen Concentration - - Weight 59 kg (130 lb) 05/05/2016 10:08 AM EST Height 154.9 cm (5' 1) 05/05/2016 10:08 AM EST Body Mass Index 26.07 05/05/2016 10:08 AM EST documented in this encounter Discharge Summaries * Liz Brown Nela - 05/06/2016 9:38 AM EST Images from the original note were not included. Discharge Summary Patient Name: Lourdes Castro Patient Age: 61 y.o. Language: Russian Race: White Ethnicity: Not nor Admit date: 05/05/2016 Discharge date and time: 05/06/2016 Attending Physician: Naye Aden MD Discharge Physician: Naye Adne MD Follow-up Recommendations for Providers: Follow Up Visit: May 27, 2016 at 3:30pm with Dr. [place] [facility] [place] Provider Contact Information: Dr. Naye Aden, [facility] Gynecologic Oncology, Discharge Diagnoses (Hospital Problems) and [...] increasing number of fibroids. She presented [place] [facility] [place] 05[place]05[place]16 for her planned surgery. Hospital [...] PATIENT DISCHARGE INSTRUCTIONS Gynecology Oncology phone number: [phone] Call your doctor if you develop: --A [...] 3:30 PM Naye Aden MD Gynecologic Oncology [phone] Discharge References/Attachments None Provider Contact Information: Gwen Stanford MD [phone] documented in this encounter Discharge Instructions * Patient Instructions* Veronika Tam PA - 05/05/2016 2:48 PM EST Images from the original note were not included. PATIENT DISCHARGE INSTRUCTIONS Gynecology Oncology phone number: [phone] Call your doctor if you develop: --A [...] dressed. Patient's spouse went to pharmacy to warehouse order picker outpatient prescriptions. Patient left with spouse [...] Hiro Salmon MD PGY1/Liz Brown, PGY3 05/06/2016 MULE TENDER ONC Service Pager: [phone] I have seen and examined the patient [...] for patient, vs's, patient given hydromorphone iv. [id number]: patient more comfortable, vs's, in to visit, patient meets discharge criteria, report called to floor. Anesthesia ok 'd patient to go to room with heart rate 40's -50's, blood pressure nl documented in this encounter H&P Notes * Naye Aden MD - 05/05/2016 10:50 AM EST Inpatient DOWEL INSERTING MACHINE OPERATOR - Admission Interval Note I have reviewed [...] (Interventions Implemented as Appropriate) 05/05/16 1950 05/06/16 0200 Howell Fall Risk History of Falling 0 [...] Operative Note Patient Name: Lourdes Castro : [id number] MR#: [id number] Case Date: 05/05/2016 Surgeon: Surgeon(s) and Role: [...] Aden MD - 05/05/2016 1:50 PM EST [facility] [place] Note Patient Name: Lourdes Castro : [id number] MR#: [id number] Case Date: 05/05/2016 Surgeon: Surgeon(s) and Role: [...] trocars and a 12-mm right upper quadrant cafe assistant port were placed in the usual [...] by the anesthesiologist and surgeons. Dr. Naye Aedn, the attending physician, was present for the entire procedure. Sharp and sponge counts were correct x two. No surgical instrument counts were performed as per [facility] [place] policy. Complications: None. Antibiotics: gentamicin and [...] 06/29/2024 1:40 PM EST Appointment Mammography/[place] [address] Gwen Stanford MD [address] [place], [place] [address]Y [address] [address] 09/11/2024 10:00 AM EDT Office Visit Dermatology at [address] [phone] Su Rosas MD [facility] DR ANTONINA [place] [address] documented as of this encounter Procedures Procedure Name Priority Date/Time Associated Diagnosis Comments SPECIMEN TO PATHOLOGY STAT 05/05/2016 1:38 PM EST SURGICAL PATHOLOGY REPORT Routine 05/05/2016 1:11 PM EST SPECIMEN TO PATHOLOGY Routine 05/05/2016 1:11 PM EST NON-MULE TENDER FINAL REPORT Routine 05/05/2016 1:10 PM EST [...] PM EST 05/05/2016 1:38 PM EST Narrative [facility] - 05/05/2016 1:38 PM EST Specimen requisition ordered. ??Separate Pathology report to follow Naye Aden MD PATHOLOGY/CYTOLOGY O JAYLIN [facility] [place] [address] * Surgical Pathology Report (05/05/2016 1:11 PM EST) Final Diagnosis [id number] ?Location: [facility]; The signing pathologist has (i) examined the relevant preparation(s) for the specimen(s) and (ii) rendered or confirmed the diagnosis(es). . ?Surgical Pathology DIAGNOSIS A - Right and left fallopian tubes: ??1. Unremarkable fallopian tubes B - Uterus and cervix: ??1. Chronic cervicitis and squamous metaplasia ??2. Frequent endocervical tunnel clusters ??3. Benign endometrium ??4. Adenomyosis ??5. Multiple leiomyomas Electronically signed by: ??Abdulaziz Tarango MD Verified: ??05/11/2016 ?Pathologist DISCUSSION No evidence of [...] mass lesions are identified grossly Sections/Processi ng: Strategic Partner Development Manager sections of both fallopian tubes are submitted [...] OVARIES AND FALLOPIAN TUBES SECTIONS/PROCESSI NG: A in store marketing representative section is submitted for frozen section. (1) frozen section residue of FS 1, in store marketing representative sections of nodules; (2) frozen section residue of FS 2, in store marketing representative sections of nodules (3) anterior cervix; . SPECIMEN PROCESSING (4) posterior cervix; (5-8) anterior lower uterine segment; (9-12) ??Posterior lower uterine segment; (13-22) full-thickness sections of the anterior endometrium; (23-26) full thickness sections of the posterior endometrium; (27-28 through 35-36) full thickness sections of the posterior endometrium, split; (37-39) Strategic Partner Development Manager sections of myometrial nodules. ??(R39) ??njo ?Frozen Section FROZEN SECTION DIAGNOSIS A - Uterus: ??1. Multiple leiomyomas with no evidence of malignancy 05/05/16 14:20 Electronically signed by: ??Abdulaziz Tarango MD Verified: ??05/05/2016 ?Pathologist This intraoperative consultation should be interpreted as a preliminary diagnosis pending review of the entire specimen and special studies, if any. 05/11/2016 4:30 PM EST [facility] FALLOPIAN TUBE STRUCTURE / Unknown 05/05/2016 1:11 PM EST 05/05/2016 1:11 PM EST Uterine Corpus 05/05/2016 1: 11 PM EST 05/05/2016 1:11 PM EST Naye Aden MD PATHOLOGY/CYTOLOGY O JAYLIN Performing Organization Address [facility] [place] [address] * Specimen to Pathology (surgical or derm) (05/05/2016 1:11 PM EST) AP Specimen 05/05/2016 1:11 PM EST 05/05/2016 1:11 PM EST Narrative [facility] - 05/05/2016 1:11 PM EST Specimen requisition ordered. ??Separate Pathology report to follow Naye Aden MD PATHOLOGY/CYTOLOGY O JAYLIN Performing Organization Address [facility] [place] [address] * Non-Railroad Engineer Final Report (05/05/2016 1:10 PM EST) Diagnosis Discussion [id number] ?Location: [facility]; The signing pathologist has (i) examined the relevant preparation(s) for the specimen(s) and (ii) rendered or confirmed the diagnosis(es). . ? Non-Railroad Engineer Final DIAGNOSIS Negative for Malignancy Electronically signed by: ??Yomaira HENAO, Francisco Kearns Verified: ??05/14/2016 ?Pathologist DISCUSSION Pelvic Washings: Mesothelial cells, lymphocytes, macrophages, and neutrophils. ??Cell block is paucicellular. Please correlate with concurrent specimen [id number]. CLINICAL INFORMATION Specimen Source : Pelvic Washings Pertinent Clinical Data and Significant Therapy: Uterine mass, hyperplasia Clinical Impression : Pelvic washings Pertinent Radiologic Findings ??: (not provided) Gross Description: ?? Received ??fresh, approximately 70 mL total volume of ?? cloudy, yellow fluid. ?? Total Preparation: Liquid Based Prep 1; Cell Block 1. 05/14/2016 4:58 PM EST [facility] Pelvic Washing 05/05/2016 1: 10 PM EST 05/05/2016 1:10 PM EST Naye Aden MD PATHOLOGY/CYTOLOGY O JAYLIN Performing Organization Address [facility] Co de Phone Number [facility] [place] [address] * Cytopathology Non-Gynecological (05/05/2016 1:10 PM EST) AP Specimen 05/05/2016 1:10 PM EST 05/05/2016 1:10 PM EST Narrative [facility] - 05/05/2016 1:10 PM EST Specimen requisition ordered. ??Separate Pathology report to follow Naye Aden MD PATHOLOGY/CYTOLOGY O RDERABLES Performing Organization Address [facility] Co de Phone Number [facility] [place] [address] * XR Chest PA or AP 1 [...] EST) Creatinine 0.70 0.70 - 1.20 mg/dL [facility] Comment: Please note that the pediatric reference intervals supplied above were not validated at [facility]. Results from pediatric patients should be interpreted in conjunction to the patient's age, height and muscle mass. Est Glomerular Filtration Rate >60 >=60 [facility] Comment: This estimated GFR (eGFR) value [...] the following links into your internet browser. [email or web address] Blood specimen (specimen) 05/05/2016 10:40 AM EST 05/05/2016 10:49 AM EST Narrative Resulting Agency Comment Spec In Lab Xenia Grey MD CHEMISTRY ORDERABLES [facility] [place] [id number] * BUN (05/05/2016 10:40 AM EST) Blood Urea Nitrogen 18 8 - 18 mg/dL [facility] Blood specimen (specimen) 05/05/2016 10:40 AM EST 05/05/2016 10:49 AM EST Narrative Resulting Agency Comment Spec In Lab Xenia Grey MD CHEMISTRY ORDERABLES [facility] [place] [address] * POCT HGB (05/05/2016 10:34 AM EST) POC Hemoglobin 16.0g/dL g/dL Comment:16.0g/dL 05/05/2016 10:3 4 AM EST Xenia Grey MD POINT OF CARE TEST O RDERABLES * SCAN DOC: ECG (05/05/2016 12:00 AM EST) Scanning Provider MEDIA MGR SCAN EXT O RDR/RSLT documented in this encounter Visit Diagnoses Not [...] Given 05/06/2016 6:45 AM EST 650 mg BUpivacaine (PF) (MARCAINE) 0.5 % (5 mg/mL) injection ONCE PRN, Starting on Wed05/05/16 at 1451, Until Wed05/06/16 at 1326, Intra-Operative (Intra-Procedure), Routine Given 05/05/2016 2:51 PM EST 14 mLs clonazePAM (KlonoPIN) tablet 0.25 mg 0.25 mg, [...] PRN, Starting on Wed05/05/16 at 1506, Until 12/14/16 at 0630, Pain, May repeat once within [...] Routine documented in this encounter Care Teams Switch Repairer Relationship Specialty Start Date End Date Gwen Stanford MD [address] [place] [address] [address] [facility] [address] [place] [address] PCP - General 04/15/10 documented as of this encounter
--- OUTSIDE RECORDS SUMMARY | 2024-05-19 00:36 | XMS_ITS | Clinical Summary ---
Author Organization [facility] Address [address] [place] [address] Care Team Providers Care Welder Helper Name Role Phone Gwen Stanford MD Primary Care Provider [phone] Allergies Active Allergy Reactions Criticality Noted Date Comments Codeine Nausea Only,Other (S ee Comments) 09/07/2017 hallucinations Penicillins High 09/07/2017 Medications IBUPROFEN ORAL Take by mouth as needed. Active MELATONIN/HERBAL NO.233 (MIDNITE ORAL) Take by mouth as needed. Active estradiol (ESTRACE) 1 mg tablet Take 1 mg by mouth daily. Active clonazePAM (KLONOPIN) 1 mg tablet Take 1 mg by mouth as needed. Active GLUCOSAMINE HCL/CHONDROITIN CUBA (GLUCOSAMINE-CHO NDROITIN ORAL) Take by mouth. Active VITAMIN B COMPLEX (B COMPLEX ORAL) Take by mouth. Active BIOTIN ORAL Take by mouth. Active FLUCONAZOLE ORAL Take by mouth as needed. Active MV-MIN/VIT C/GLUT/LYSINE/HB 124 ([place], LYSINE HCL, ORAL) Take by mouth. Active ECHINACEA ORAL Take by mouth. Active Social History Tobacco Use Types Packs/Day Years [...] on file Sexual Orientation Not on file Obstetrics History Last Filed Vital Signs Vital Sign Reading Time Taken Comments Blood Pressure 116/70 11/09/2017 1347 EDT Pulse 71 11/09/2017 1347 EDT Temperature - - Respiratory Rate - - Oxygen Saturation - - Inhaled Oxygen Concentration - - Weight 59 kg (130 lb) 10/06/2017 1335 EDT Height 154.9 cm (5' 1) 10/06/2017 1335 EDT Body Mass Index 24.56 10/06/2017 1335 EDT Plan of Treatment Health Maintenance Due Date Last Done Comments Hepatitis C Screen 1955 Fall Risk Screening 2022 COVID-19 Vaccine (2023- season) 2024 RSV Immunization ( o r 60+ Years) (1 - 1-dose 75+ series) 02/07/2032 Care Teams Welder Helper Relationship Specialty Start Date End Date Gwen Stanford MD [address] [place] [address] [address] [place] [address] PCP - General 08/11/11
--- OUTSIDE RECORDS SUMMARY | 2024-05-19 00:36 | XMS_ITS | Encounter Summary ---
[place] [address] Care Team Providers Care School Occupational Therapist Name Role Phone Gwen Stanford MD Primary Care Provider [phone] Encounter Details Date Type Department Care Team (Late st Contact Info) Description 04/20/2006 [place] [phone] Gwen Stanford MD [address] [place], [place] [id number] Social History Tobacco Use Types Packs/Day Years Used Date Smoking Tobacco: Never Assessed Sex and Gender Information Value Date Recorded Sex Assigned at Not on file Gender Identity Not on file Sexual Orientation Not on file documented as of this encounter Plan of Treatment Upcoming Encounters Date Type Department Care Team (Late st Contact Info) Description 06/29/2024 1:40 PM EST Appointment Mammography/[place] [phone] Gwen Stanford MD [address] [place], [place] [address]Y [facility] [address] [place], [place] [id number] 09/11/2024 10:00 AM EDT Office Visit Dermatology at [facility] [address] [place] [address] Su Rosas MD [facility] SUJITYANELI [place] [address] documented as of this encounter Procedures Procedure Name Priority Date/Time Associated Diagnosis Comments SURGICAL PATHOLOGY REPORT Routine 04/20/2006 6:54 PM EST documented in this encounter Results * Surgical Pathology Report (04/20/2006 6:54 PM EST) Surgical Pathology Report [id number] ? Location: The signing pathologist has (i) examined the relevant preparation(s) for the specimen(s) and (ii) rendered or confirmed the diagnosis(es). . ?Pathology Surgical Pathology Final Report Clinical Information Specimen Submitted: A - EMC/BX. Clinical History: DUB. Clinical Diagnosis: DUB. Gross Description Labeled/Fixativ e: ? Labeled with the patient's name, formalin. Qty/Size/Weight : ?Fragments, 2.0 x 1.5 x 0.3 cm. Tissue Description: ?? Aggregate of soft, red-brown tissues. Sections/Proces sing: ??(T1) ??[facility] Microscopic Description Slides reviewed, microscopic description not recorded. Diagnosis Endometrium, biopsy: ?Fragments of benign secretory endometrium. CR-0 04/22/06 SY 04/23/06 Verified by: ? Lawanda Reinoso MD, PhD ?Pathologist ?(Electronic Signature) The attending pathologist whose signature appears on this report has reviewed all diagnostic slides and has edited the gross and/or microscopic portion of the report in rendering the final pathologic diagnosis. [facility] 04/20/2006 6:54 PM EST Gwen Stanford MD PATHOLOGY/CYTOLOGY ORDERABLES [facility] documented in this encounter Visit Diagnoses Not on filedocumented in this encounter Care Teams School Occupational Therapist Relationship Specialty Start Date End Date Gwen Stanford MD [address] [place] [address] [address] [place] [address] PCP - General 04/15/10 documented as of this encounter
--- OUTSIDE RECORDS SUMMARY | 2024-05-19 00:36 | XMS_ITS | Encounter Summary ---
Author Organization [facility] Address [address] [place] [address] Care Team Providers Care Hot Die Press Feeder Name Role Phone Gwen Stanford MD Primary Care Provider [phone] Encounter Details Date Type Department Care Team (Late st Contact Info) Description 03/08/[address] [facility] [address] [place], [place] [address] Gwen Stanford MD [address] [place] [address] [address] [place] [phone] Social History Tobacco Use Types Packs/Day Years [...] Diagnosis Comments PAP TEST- RESULT ONLY Routine 03/08/2012 0:00 EDT documented in this encounter Results * PAP TEST- RESULT ONLY (03/08/2012 0:00 EDT) Pathology Report: CYTOPATHOLOGY REPORT Reports generated via electronic interface contain original data; however they are lacking the format of the original report. Caution should be taken when reading/interpreti ng unformatted reports. Name: ? LOURDES CASTRO ? Accession #: ? [id number] ? : ? 1955 (Age: 57) ??F ?Collect Date: ? 03/08/2012 ? Location: ? [facility] ? Receive Date: ? 03/10/2012 ? Provider: GWEN STANFORD MD Copy to: ? Final Report SPECIMEN ADEQUACY ? Satisfactory for Evaluation - assessment of transformation zone component not applicable ( e.g. atrophy, vaginal sample, hysterectomy) - scant squamous epithelial component secondary to excessive inflammation GENERAL CATEGORIZATION ? Negative for Intraepithelial Lesion or Malignancy ?? Menstural/Pregnanc y Status: ??Post Menopausal Previous Gynecologic Pathology: ASC-US: 08/04/11 Treatment History: Colposcopy: normal Specimen/Source: ??Pap Test, Cervix/Endocervix, ThinPrep Imaging System with manual evaluation Document reviewed and electronically signed by: ? JESSICA Suttno(ASCP) ? Report ??Date: 03/17/2012 09:56 HPV with Pap Test ? Date Ordered: ? 03/16/2012 ? Status: ?? Signed Out ?Date Complete: ? 03/21/2012 ? By: ??System Interface ? Date Reported: ? 03/21/2012 ? Interpretation RESULT: Positive for high or intermediate risk HPV. E6 OR E7 mRNA from one or more types of HPV types 16,18,31, 33,35,39,45,51,52, 56,58,59,66, and 68 is detected by hat marker mediated amplification. High and intermediate risk HPV types are associated with most squamous intraepithelial lesions and cervical cancers. Comments Document reviewed and electronically signed by: ? System Interface ? Report date: 03/21/2012 By the signature above, the attending physician certifies that he/she has personally conducted a gross and/or microscopic examination of the described specimens and rendered or confirmed the above diagnosis. End of Report [facility] 03/08/2012 03/10/2012 us Gwen Stanford MD PATHOLOGY ORDERABLES Final Result [facility] [address] [place] [address] documented in this encounter Visit Diagnoses Not on filedocumented in this encounter Care Teams Hot Die Press Feeder Relationship Specialty Start Date End Date Gwen Stanford MD [address] [place] [phone] PCP - General 08/11/11 documented as of this encounter
--- OUTSIDE RECORDS SUMMARY | 2024-05-19 00:36 | XMS_ITS | Encounter Summary ---
Author Organization [facility] Address [address] [place] [address] Care Team Providers Care Tire Assembler Name Role Phone Gwen Stanford MD Primary Care Provider [phone] Encounter Details Date Type Department Care Team (Latest Contact Info) Description 03/13/2013 15:14 EDT - 03/13/2013 23:59 EDT Hospital Encounter [address] [address] Unknown, Provider, MD Discharge Disposition: Home or Self Care Social History Tobacco Use Types Packs/Day Years Used Date Smoking Tobacco: Never Assessed Comments Unknown Sex and Gender Information Value Date Recorded Sex Assigned at Not on file Legal Sex Female 18:20 EST Gender Identity Not on file Sexual Orientation Not on file documented as of this encounter Discharge Disposition Disposition Code Departure Means Destination Home or Self Half-Way documented in this encounter Plan of Treatment Not on file documented as of this encounter Visit Diagnoses Not on filedocumented in this encounter Care Teams Tire Assembler Relationship Specialty Start Date End Date Gwen Stanford MD [address] [place] [address] [address] [place] [address] PCP - General 08/11/11 documented as of this encounter
--- OUTSIDE RECORDS SUMMARY | 2024-05-19 00:36 | XMS_ITS | Encounter Summary ---
Author Organization [facility] Address [address] [place] [address] Care Team Providers Care Watch Hairspring Assembler Name Role Phone Gwen Stanford MD Primary Care Provider [phone] Encounter Details Date Type Department Care Team (Latest Contact Info) Description 04/12/2013 12:53 EST - 04/12/2013 23:59 EST Hospital Encounter [address] [address] Unknown, Provider, MD Discharge Disposition: Home or [...] Code Departure Means Destination Home or Self Assisted documented in this encounter Plan of Treatment Not on file documented as of this encounter Visit Diagnoses Not on filedocumented in this encounter Care Teams Watch Hairspring Assembler Relationship Specialty Start Date End Date Gwen Stanford MD [address] [place] [address] [address] [place] [address] PCP - General 08/11/11 documented as of this encounter
--- OUTSIDE RECORDS SUMMARY | 2024-05-19 00:36 | XMS_ITS | Encounter Summary ---
Author Organization [facility] Address [address] [place] [address] Care Team Providers Care Clean Up Worker Name Role Phone Gwen Stanford MD Primary Care Provider [phone] Encounter Details Date Type Department Care Team (Latest Contact Info) Description 11/02/2017 12:51 EDT - 11/02/2017 23:59 EDT Hospital Encounter [facility] - Medical Office Building [phone] Janet Hunt MD [address] [facility] Medical Office Building, [address] [place] [address] Discharge Disposition: Home or Self Care Social [...] Code Departure Means Destination Home or Self Custodial documented in this encounter Plan of Treatment Not on file documented as of this encounter Visit Diagnoses Not on filedocumented in this encounter Care Teams Clean Up Worker Relationship Specialty Start Date End Date Gwen Stanford MD [address] [facility] [address] [place] [phone] PCP - General 08/11/11 documented as of this encounter
--- OUTSIDE RECORDS SUMMARY | 2024-05-19 00:36 | XMS_ITS | Encounter Summary ---
Author Organization [facility] Address [address] [place] [address] Care Team Providers Care Junior Systems Administrator Name Role Phone Gwen Stanford MD Primary Care Provider [phone] Reason for Visit * Reason Comments Follow-up Encounter Details Date Type Department Care Team (Latest Contact Info) Description 03/29/2018 13:30 EST Office Visit [facility] Pelvic Medicine and Reconstructive Surgery - Medical Office [address] [id number] Janet Hunt MD 2 [facility] Medical Office [facility], [facility] [address] [place] [address] Female genital prolapse, unspecified type [...] as of this encounter Progress Notes * Janet Hunt MD - 03/29/2018 1330 EST Pessary Fitting Chief Complaint: Follow-up Patient: Lourdes Castro is an 63 y.o. female presents for pessary fitting. Wants to be able to play tennis without pessary falling out. Willing to try Gellhorn pessary. OB History No data available No past [...] the patient???s complaint are listed in the [facility]; all others are negative. FEMALE EXAM (urogyn) External Genitalia: No Lesions Post Void Residual: Not Done Vaginal Examination: Pessary Exam of bony pelvic, pubic arch and vaginal length performed. Patient fit with a size 4 Gellhorn, long stem pessary successfully Assessment Lourdes Castro is a 63 y.o. female with pelvic organ prolapse here for routine pessary care. Plan F/U prn. Pt going to try to remove at home. Janet Hunt MD documented in this encounter Plan of Treatment Not on file documented as of this encounter Visit Diagnoses Diagnosis Female genital prolapse, unspecified type- Primary documented in this encounter Care Teams Junior Systems Administrator Relationship Specialty Start Date End Date Gwen Stanford MD [address] [facility] [address] [place] [address] PCP - General 08/11/11 documented as of this encounter
--- OUTSIDE RECORDS SUMMARY | 2024-05-19 00:36 | XMS_ITS | Encounter Summary ---
[place] [address] Care Team Providers Care Chemist Food Name Role Phone Gwen Stanford MD Primary Care Provider Encounter Details Date Type Department Care Team (Late st Contact Info) Description 10/24/2013 9:29 AM EDT - 10/24/2013 11:59 PM EDT Hospital [place] [phone] CLINIC, Gwen Calix MD [address] [place] [address] [address] [place], [place] [address] Discharge Disposition: Home Social History Tobacco Use [...] 06/29/2024 1:40 PM EST Appointment Mammography/[place] [address] Gwen Stanford MD [address] [place] [address] 09/11/2024 10:00 AM EDT Office Visit Dermatology at [facility] [address] [place] [address] Su Rosas MD [facility] [address] ANTONINA [place] [address] documented as of this encounter Procedures Procedure Name Priority Date/Time Associated Diagnosis Comments MAMMO SCREENING CAD BILATERAL Routine 10/24/2013 9:49 AM EDT documented in this encounter Results * Mammo digital bilateral Screening with CAD (10/24/2013 9:49 AM EDT) Anatomical Region Laterality Modality Breast Bilateral Mammography 10/24/2013 9:49 AM EDT Narrative 10/25/2013 8:59 AM EDT Reason for Exam: Screening ?? Technique: Craniocaudal (CC) and Medio-lateral Oblique (MLO) views of both breasts obtained with direct digital capture. In addition to routine 2-D imaging, this exam was also performed with 3-D Tomographic Imaging (MLO and CC). ?? The exam was evaluated by CAD version 8.3.17. ?? Findings: ?? This is a negative mammogram (ACR Category 1). There is a stable fibroglandular pattern without significant change from prior studies. There is no mammographic evidence of cancer. The breasts are heterogeneously dense which limits mammographic sensitivity for the detection of malignancy. ?? CONCLUSION: This is a NEGATIVE mammogram (ACR Category 1). ?? Routine screening mammography is recommended with the frequency dependent upon the patients age and breast cancer risk factors. A letter has been sent to this patient by the breast imaging center. ?? Procedure Note Camille Buck MD - 10/25/2013 Reason for Exam: Screening Technique: Craniocaudal (CC) and Medio-lateral Oblique (MLO) views of both breasts obtained with direct digital capture. In addition to routine 2-D imaging, this exam was also performed with 3-D Tomographic Imaging (MLOand CC). The exam was evaluated by CAD version 8.3.17. Findings: This is a negative mammogram (ACR Category 1). There is a stablefibroglandular pattern without significant change from prior studies. There is no mammographic evidence of cancer. The breasts areheterogeneously dense which limits mammographic sensitivity for the detection ofmalignancy. CONCLUSION: This is a NEGATIVE mammogram (ACR Category 1). Routine screening mammography is recommended with the frequency dependentupon the patients age and breast cancer risk factors. A letter has been sent to this patient by the breast imaging center. Gwen Stanford MD IMG MAMMO ORDERABLES documented in this encounter Visit Diagnoses Not on filedocumented in this encounter Care Teams Chemist Food Relationship Specialty Start Date End Date Gwen Stanford MD [address] [place] [address] PCP - General 04/15/10 documented as of this encounter
--- OUTSIDE RECORDS SUMMARY | 2024-05-19 00:36 | XMS_ITS | Encounter Summary ---
[place] [address] Care Team Providers Care Personalization Specialist Name Role Phone Gwen Stanford MD Primary Care Provider Encounter Details Date Type Department Care Team (Late st Contact Info) Description 10/30/2014 12:40 PM EDT - 10/30/2014 11:59 PM EDT Hospital [place] [phone] CLINIC, Gwen Calix MD [address] [place] [address] [address] [place], [place] [address] Discharge Disposition: Home Social History Tobacco Use [...] 06/29/2024 1:40 PM EST Appointment Mammography[place] [address] Gwen Stanford MD [address] [place] [address] 09/11/2024 10:00 AM EDT Office Visit Dermatology at [facility] [address] [place] [phone] Su Rosas MD [facility] [address] [place]TON[place] [address] documented as of this encounter Procedures Procedure Name Priority Date/Time Associated Diagnosis Comments MAMMO 2D DIGITAL SCREEN CEDRICK BILATERAL Routine 10/30/2014 1:02 PM EDT documented in this encounter Results * Mammography Screen Cedrick 2D Bilateral (10/30/2014 1:02 PM EDT) Anatomical Region Laterality Modality Breast Bilateral Mammography 10/30/2014 1:02 PM EDT Narrative 10/31/2014 9:02 AM EDT Reason for Exam: Screening ?? [...] ?? Procedure Note Camille Buck MD - 10/31/2014 Reason for Exam: Screening Technique: Craniocaudal (CC) [...] on filedocumented in this encounter Care Teams Personalization Specialist Relationship Specialty Start Date End Date Gwen Stanford MD [address] [place] [address] PCP - General 04/15/10 documented as of this encounter
--- OUTSIDE RECORDS SUMMARY | 2024-05-19 00:36 | XMS_ITS | Encounter Summary ---
Author Organization [facility] Address [address] [place] [address] Care Team Providers Care Channel Development Manager Name Role Phone Gwen Stanford MD Primary Care Provider [phone] Encounter Details Date Type Department Care Team (Latest Contact Info) Description 03/27/2016 9:20 EDT - 03/27/2016 23:59 EDT Hospital Encounter [address] [address] Unknown, Provider, MD Discharge Disposition: Home or [...] Code Departure Means Destination Home or Self Nursing Home documented in this encounter Plan of Treatment Not on file documented as of this encounter Visit Diagnoses Not on filedocumented in this encounter Care Teams Channel Development Manager Relationship Specialty Start Date End Date Gwen Stanford MD [address] [place] [address] [address] [place] [address] PCP - General 08/11/11 documented as of this encounter
--- OUTSIDE RECORDS SUMMARY | 2024-05-19 00:36 | XMS_ITS | Encounter Summary ---
Author [facility] [place] [address] Care Team Providers Care Wave Soldering Machine Operator Name Role Phone Gwen Stanford MD Primary Care Provider Encounter Details Date Type Department Care Team (Late st Contact Info) Description 10/03/2012 Orders [place] [phone] Abraham Adam MD [facility] [address] [place] [address] Hand pain (Primary Dx) Social History Tobacco [...] 06/29/2024 1:40 PM EST Appointment Mammography[place] [phone] Gwen Stanford MD [address] [place] [address] [address] [place], [place] [address] 09/11/2024 10:00 AM EDT Office Visit Dermatology at [facility] [address] [place] [address] Su Rosas MD [facility] DR ANTONINA [place] [address] documented as of this encounter Visit Diagnoses Diagnosis Hand pain- Primary Pain in limb documented in this encounter Care Teams Wave Soldering Machine Operator Relationship Specialty Start Date End Date Gwen Stanford MD [facility] [address] [place] [address] PCP - General 04/15/10 documented as of this encounter
--- OUTSIDE RECORDS SUMMARY | 2024-05-19 00:36 | XMS_ITS | Encounter Summary ---
[place] [address] Care Team Providers Care Rigging Worker Name Role Phone Gwen Stanford MD Primary Care Provider [phone] Reason for Visit * Reason Comments Other Encounter Details Date Type Department Care Team (Late st Contact Info) Description 11/03/2012 Telephone [place] [phone] Marquita Wagner LPN Social History Tobacco Use Types Packs/Day Years Used Date Smoking Tobacco: Former Smokeless Tobacco: Never Sex and Gender Information Value Date Recorded Sex Assigned at Not on file Gender Identity Not on file Sexual Orientation Not on file documented as of this encounter Miscellaneous Notes * Telephone Encounter - Marquita Wagner LPN - 11/03/2012 2:11 PM EDT Lourdes stated in her call that she would like to return the splint due to it being more uncomfortablefor her. Message left for Lourdes letting her know that she was not charged for the soft splint that was provided for her and that she can return it to us if she would like, but we cannot reuse the equipment. documented in this encounter Plan of Treatment Upcoming Encounters Date Type Department Care Team (Late st Contact Info) Description 06/29/2024 1:40 PM EST Appointment Mammography/[place] [address] Gwen Stanford MD [address] [place], [place] [address] 09/11/2024 10:00 AM EDT Office Visit Dermatology at [place] [address] [place] [address] Su Rosas MD [facility] [address] [address] documented as of this encounter Visit Diagnoses Not on filedocumented in this encounter Care Teams Rigging Worker Relationship Specialty Start Date End Date Gwen Stanford MD [address] [place], [place] [address] PCP - General 04/15/10 documented as of this encounter
--- OUTSIDE RECORDS SUMMARY | 2024-05-19 00:36 | XMS_ITS | Encounter Summary ---
Author Organization [facility] Address [address] [place] [address] Care Team Providers Care Worship Director Name Role Phone Gwen Stanford MD Primary Care Provider [phone] Encounter Details Date Type Department Care Team (Late st Contact Info) Description 05/10/2020 Lab Requisition [facility] Pathology & Laboratory Medicine - [address] [address] Outr Resulting Lab, Provider Social History Tobacco [...] Procedure Name Priority Date/Time Associated Diagnosis Comments DO NOT ORDER STANDALONE - BROAD COVID TEST Today 05/10/2020 10:06 EST COVID-19 TESTING Routine 05/10/2020 10:0 6 EST documented in this encounter Results * DO NOT ORDER STANDALONE - BROAD COVID TEST (05/10/2020 10:06 EST) COVID-19 rt-PCR Result NEGATIVE Negative 05/13/2020 6:45 EST [facility] Comment: 2019-novel Coronavirus (2019-nCoV) not detected by the qRT-PCR assay. Consider testing for other respiratory viruses or re-collecting for 2019-nCoV testing. Note: Optimum timing for peak viral levels during infections caused by 2019-nCoV have not been determined. Collection of multiple specimens from the same patient may be necessary to detect the virus. Limitations Positive results are indicative of active infection with SARS-CoV-2 but do not rule out bacterial infection or co-infection with other viruses. The agent detected may not be the definite cause of disease. In addition, detection of viral RNA may not indicate the presence of infectious virus or that SARS-CoV-2 is the causative agent for clinical symptoms. Negative results do not preclude SARS-CoV-2 infection and should not be used as the sole basis for patient management decisions. Negative results must be combined with clinical observations, patient history, and epidemiological information. False negative results may also occur if amplification inhibitors are present in the specimen or if inadequate numbers of organisms are present in the specimen. Optimum specimen types and timing for peak viral levels during infections caused by SARS-CoV-2 have not been fully determined. Collection of multiple specimens (types and time points) from the same patient may be necessary to detect the virus. The test was validated for use with upper respiratory specimens obtained via nasopharyngeal or oropharyngeal swabs in VTM, UTM, M4, M5, M6, saline, and MTM media. The performance of this test has not been established for other specimens. Specimens collected using other FDA recommended Specimen Collection Materials listed in the FDA COVID-19 [employer] communication (August 17, 2019) are processed with the caveat that they were not all validated for use with this test and the result must be interpreted in this context. Furthermore, a false negative results may occur if a specimen is improperly collected, transported or handled. If the virus mutates in the RT-PCR target region, SARS-CoV-2 may not be detected or may be detected less predictably. Inhibitors or other types of interference may produce a false negative result. An interference study evaluating the effect of common cold medications was not performed. This test is not FDA-cleared but its performance characteristics were established by our CLIA-certified, CAP-accredited, high complexity laboratory in accordance with CLIA regulations, [employer] [place] (CAP) guidelines (Aug 10, 2019), and FDA guidance (Jul 22, 2019). This test is only for use under the Food and Drug Administration's Emergency Use Authorization. Swab ENTIRE NASOPHARYNX / Unknown 05/10/2020 10:06 EST 05/10/2020 16:06 EST us Provider Outr Resulting Lab MICROBIOLOGY - GENER AL ORDERABLES Final Result [facility] [place] * COVID-19 TESTING (05/10/2020 10:06 EST) COVID-19 rt-PCR Result NEGATIVE Negative 05/13/2020 12:12 EST [facility] Comment: 2019-novel Coronavirus (2019-nCoV) not detected by the qRT-PCR assay. Consider testing for other respiratory viruses or re-collecting for 2019-nCoV testing. Note: Optimum timing for peak viral levels during infections caused by 2019-nCoV have not been determined. Collection of multiple specimens from the same patient may be necessary to detect the virus. Limitations Positive results are indicative of active infection with SARS-CoV-2 but do not rule out bacterial infection or co-infection with other viruses. The agent detected may not be the definite cause of disease. In addition, detection of viral RNA may not indicate the presence of infectious virus or that SARS-CoV-2 is the causative agent for clinical symptoms. Negative results do not preclude SARS-CoV-2 infection and should not be used as the sole basis for patient management decisions. Negative results must be combined with clinical observations, patient history, and epidemiological information. False negative results may also occur if amplification inhibitors are present in the specimen or if inadequate numbers of organisms are present in the specimen. Optimum specimen types and timing for peak viral levels during infections caused by SARS-CoV-2 have not been fully determined. Collection of multiple specimens (types and time points) from the same patient may be necessary to detect the virus. The test was validated for use with upper respiratory specimens obtained via nasopharyngeal or oropharyngeal swabs in VTM, UTM, M4, M5, M6, saline, and MTM media. The performance of this test has not been established for other specimens. Specimens collected using other FDA recommended Specimen Collection Materials listed in the FDA COVID-19 [employer] communication (August 17, 2019) are processed with the caveat that they were not all validated for use with this test and the result must be interpreted in this context. Furthermore, a false negative results may occur if a specimen is improperly collected, transported or handled. If the virus mutates in the RT-PCR target region, SARS-CoV-2 may not be detected or may be detected less predictably. Inhibitors or other types of interference may produce a false negative result. An interference study evaluating the effect of common cold medications was not performed. This test is not FDA-cleared but its performance characteristics were established by our CLIA-certified, CAP-accredited, high complexity laboratory in accordance with CLIA regulations, [employer] [place] (CAP) guidelines (Aug 10, 2019), and FDA guidance (Jul 22, 2019). This test is only for use under the Food and Drug Administration's Emergency Use Authorization. Performing Lab [facility] 05/13/2020 12:12 EST [facility] Swab 05/10/2020 10:0 6 EST 05/10/2020 16:06 EST us Provider Outr Resulting Lab MICROBIOLOGY - GENER AL ORDERABLES Final Result [facility] [address] [place] [address] [facility] [place], [place] documented in this encounter Visit Diagnoses Not on filedocumented in this encounter Care Teams Worship Director Relationship Specialty Start Date End Date Gwen Stanford MD [address] [place] [address] PCP - General 08/11/11 documented as of this encounter
--- OUTSIDE RECORDS SUMMARY | 2024-05-19 00:36 | XMS_ITS | Referral Summary ---
Author Organization [facility] Address [address] [place] [address] Care Team Providers Care Lighting Specialist Name Role Phone Gwen Stanford MD Primary Care Provider [phone] Allergies Active Allergy Reactions Criticality Noted Date [...] 24.56 10/06/2017 1335 EDT Plan of Treatment Not on file Care Teams Lighting Specialist Relationship Specialty Start Date End Date Gewn Stanford MD [address] [place], [place] [address] [place] [phone] PCP - General 08/11/11
--- OUTSIDE RECORDS SUMMARY | 2024-05-19 00:36 | XMS_ITS | Encounter Summary ---
Author Organization [facility] Address [address] [place] [address] Care Team Providers Care Hand Polisher Name Role Phone Unavailable Primary Care Provider Unavailabl e Encounter Details Date Type Department Care Team (Late st Contact Info) Description 05/06/2010 Results Only [facility] - [facility] ([facility] [address] [place], [place] [phone] Gwen Stanford MD [address] [place] [address] [address] [place] [address] Social History Tobacco Use Types [...] Procedure Name Priority Date/Time Associated Diagnosis Comments CYTOPATHOLOGY Routine 05/06/2010 0:00 EST documented in this encounter Results * CYTOPATHOLOGY (05/06/2010 0:00 EST) Pathology Report: CYTOPATHOLOGY REPORT ? Reports generated via electronic interface contain original data; ? however they are lacking the format of the original report. ? Caution should be taken when reading/interpreti ng unformatted reports. ? Name: ? LOURDES CASTRO ? Accession #: ? [id number] ? : ? 1955 (Age: 55) ??F ?Collect Date: ? 05/06/2010 ? Location: ? [facility] ? Receive Date: ? 05/08/2010 ? Provider: GWEN M DOBBERTIN MD ? Copy to: ? Final Report ? SPECIMEN ADEQUACY ? Satisfactory for Evaluation ? - transformation zone component present ? GENERAL CATEGORIZATION ? Negative for Intraepithelial Lesion or Malignancy ? INTERPRETATION ? Reactive cellular changes associated with inflammation present (includes ?? repair). ? 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 ? Menstural/Pregnanc y Status: ??Post Menopausal ? Hormonal/Contracep tive status: Yes: seamus 0.5/1mg daily ? Previous Gynecologic Pathology: HPV: + 2008, 2009 ? Specimen/Source: ??Pap Test, Cervix/Endocervix, ThinPrep Imaging System with ? manual evaluation ? Document reviewed and electronically signed by: ? DAPHNE CASILLAS MD ? Report ??Date: 05/14/2010 17:34 ? HPV with Pap Test ? Date Ordered: ? 05/14/2010 ? Status: ?? Signed Out ?Date Complete: ? 05/19/2010 ? By: ??System Interface ? Date Reported: ? 05/19/2010 ? Interpretation ? RESULT: Positive for one or more of HPV types 16,18,31,33,35,39, 45, ? 51,52,56,58,59, or 68. These high/intermediate risk HPV ? types are associated with dysplasia and some cervical ? cancers. ? Comments ? Document reviewed and electronically signed by: ? System Interface ? Report date: 05/19/2010 ? By the signature above, the attending physician certifies that he/she has ? personally conducted a gross and/or microscopic examination of the described ? specimens and rendered or confirmed the above diagnosis. ? End of Report ? [facility] 05/06/2010 05/08/2010 us Gwen Stanford MD PATHOLOGY ORDERABLES Final Result [facility] [address] [place] [address] documented in this encounter Visit Diagnoses Not on filedocumented in this encounter
--- OUTSIDE RECORDS SUMMARY | 2024-05-19 00:36 | XMS_ITS | Encounter Summary ---
[place] [address] Care Team Providers Care Allied Health Teacher Name Role Phone Gwen Stanford MD Primary Care Provider [phone] Reason for Visit * Reason Comments Bilateral Hand Pain left thumb > right Encounter Details Date Type Department Care Team (Late st Contact Info) Description 10/19/2012 1:45 PM EDT [place] [phone] Abraham Adam MD [facility] [place] [address] Silvino Zhang PA [facility] [place] [address] Trigger thumb of left hand (Primary Dx) Discharge Disposition: Home Social History Tobacco Use Types Packs/Day Years Used Date Smoking Tobacco: Former Smokeless Tobacco: Never Sex and Gender Information Value Date Recorded Sex Assigned at Not on file Gender Identity Not on file Sexual Orientation Not on file documented as of this encounter Last Filed Vital Signs Vital Sign Reading Time Taken Comments Blood Pressure 126/78 10/19/2012 1:41 PM EDT Pulse 57 10/19/2012 1:41 PM EDT Temperature - - Respiratory Rate - - Oxygen Saturation - - Inhaled Oxygen Concentration - - Weight 56.2 kg (124 lb) 10/19/2012 1:41 PM EDT Height 156.8 cm (5' 1.75) 10/19/2012 1:41 PM ED T Body Mass Index 22.86 10/19/2012 1:41 PM EDT documented in this encounter Progress Notes * Silvino Zhang PA - 10/19/2012 2:28 PM EDT SUBJECTIVE: Lourdes is a 57-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 She presents today for evaluation of bilateral thumb pain, left greater than right times several months. No injury. She tells me her left thumb clicks and locks down. It is worse with extension. 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 She has normal strength. She denies paresthesias. She had an injection in April that helped for approximately six weeks with an insidious return of her clicking and pain. Regarding her right thumb, it is not clicking, but she has some occasional discomfort in the hand. She had bilateral x-rays done today. She is sent to us by her primary care provider, Dr. Stanford. She is otherwise healthy, active, and well. ALLERGIES: SHE IS ALLERGIC TO BOTH CODEINE AND PENICILLINS CAUSING ANAPHYLAXIS FOR PENICILLIN AND ANXIETY FOR HER CODEINE. CURRENT MEDICATIONS: She is currently taking Klonopin and estrogen. MEDICAL ISSUES: Include a history of her trigger thumb and she does have some verruca on her right hand. She is otherwise quite healthy and generally well. SURGICAL HISTORY: Negative. She has had two children. She is a former smoker, having quit at least 15 years ago. She has a cocktail or two daily. She does not need assistance with daily activities. She is a college graduate. FAMILY HISTORY: Negative. She is adopted. REVIEW OF SYSTEMS: Negative for fevers, chills, headache, vision change, chest pain, or shortness of breath. PHYSICAL EXAMINATION: She is awake, alert, and oriented, in no acute distress. She is a very pleasant woman with appropriate affect and demeanor for today's visit. Resting comfortably in the exam room. Her bilateral hands are warm and dry. No overlying erythema, edema, or ecchymosis. She does have several verruca to the right hand on the fingers, specifically the ring and long finger. Her sensation is intact. There is no snapping, locking, or triggering of any of her right hand digits. The left is significant for trigger thumb on the upper right trigger thumb at the level of the A1 yue. This causes her discomfort with reduction. No other digits are triggering. Otherwise, sensate, well perfused. Capillary refill is less than two seconds. Pulses are 2+. Cardiovascular status is regular rate and rhythm by palpation. She tells me that her discomfort is sharp and transient in nature. Her imaging studies show grossly normal bony anatomy. We went over this in detail in the exam room today. She understands the nature of her chief complaint and treatment options to include observation, splinting, cortisone injection, and finally A1 yue release. She would like to give all of these some consideration. She will return when she is ready to proceed. She would not want to do this now in that it is the beginning of summer. If she has any further concerns, questions, or issues, she will contact us. I have given her a soft thumb splint to wear for comfort on an as needed basis. Her questions are answered, and she will follow up as needed. documented in this encounter Plan of Treatment Upcoming Encounters Date Type Department Care Team (Late st Contact Info) Description 06/29/2024 1:40 PM EST Appointment Mammography/[place] [address] Gwen Stanford MD [facility] [address] [address] 09/11/2024 10:00 AM EDT Office Visit Dermatology at [facility] [address] [place] [phone] Su Rosas MD [facility] DR [address]TON[address] [place] [address] documented as of this encounter Visit Diagnoses Diagnosis Trigger thumb of left hand- Primary Trigger finger (acquired) documented in this encounter Care Teams Allied Health Teacher Relationship Specialty Start Date End Date Gwen Stanford MD [address] [facility] [address] [place] [address] PCP - General 04/15/10 documented as of this encounter
--- OUTSIDE RECORDS SUMMARY | 2024-05-19 00:36 | XMS_ITS | Encounter Summary ---
Author Organization [facility] Address [address] [place] [address] Care Team Providers Care Timber Trimmer Name Role Phone Gwen Stanford MD Primary Care Provider [phone] Encounter Details Date Type Department Care Team (Late st Contact Info) Description 08/18/2011 Results Only [facility] [phone] Jayden Carreno MD [address] [place] [address] Social History Tobacco Use Types Packs/Day Years [...] Date/Time Associated Diagnosis Comments SURGICAL PATHOLOGY Routine 08/18/2011 0:00 EDT documented in this encounter Results * SURGICAL PATHOLOGY (08/18/2011 0:00 EDT) Pathology Report: SURGICAL PATHOLOGY REPORT Reports generated via electronic interface contain original data; however they are lacking the format of the original report. Caution should be taken when reading/interpreti ng unformatted reports. Name: ? LOURDES CASTRO ? Accession #: ? [id number] ? : ? 1955 (Age: 56) ??F ? Collect Date: ? 08/18/2011 ? Location: ? [facility] ? Receive Date: ? 08/19/2011 ? Provider: JAYDEN CARRENO MD Copy to: GWEN STANFORD MD ? Final Pathologic Diagnosis: ? Cervix, 12 o'clock, biopsies: - Squamous mucosa with reactive changes. ?? Document reviewed and electronically signed by: WANG ROSARIO MD Report ??Date: 08/24/2011 12:42 By the signature above, the attending physician certifies that he/she has personally conducted a gross and/or microscopic examination of the described specimens and rendered or confirmed the above diagnosis. Specimen(s) Received: ? Ectocervix 12 o'clock ??stenotic os Clinical History: ? 08/04/11 ??ASC-US/(+) HPV; 05/06/10 ??Neg Pap/(+) HPV; 04/23/09 ??Neg Pap/(+) HPV Gross Description: ? Received in formalin labelled Matthew, Lourdes and ecto cvx 12 o'clock are two garcia-pink biopsies measuring 0.1 x 0.1 x 0.1 cm and 0.3 x 0.2 x 0.2 cm. ??The specimens are submitted intact in one cassette. ??(Ilana Mcdowell)/[facility] End of Report ANTONI PAZ 08/18/2011 08/19/2011 8:4 2 EDT us Jayden Carreno MD PATHOLOGY ORDERABLES Final Resu lt ANTONI PAZ [address] [place] [address] documented in this encounter Visit Diagnoses Not on filedocumented in this encounter Care Teams Timber Trimmer Relationship Specialty Start Date End Date Gwen Stanford MD [address] [place] [address] PCP - General 08/11/11 documented as of this encounter
--- OUTSIDE RECORDS SUMMARY | 2024-05-19 00:36 | XMS_ITS | Encounter Summary ---
Author Organization [facility] [place] [address] Care Team Providers Care Military Technology Specialist Name Role Phone Gwen Stanford MD Primary Care Provider [phone] Encounter Details Date Type Department Care Team (Latest Contact Info) Description 12/19/2013 9:09 AM EDT - 12/19/2013 3:44 PM EDT Hospital Encounter [place] [phone] Artur Montez MD [facility] [place] [address] Discharge Disposition: Home Social History Tobacco Use [...] encounter Discharge Instructions * Discharge Instructions* Salina Pemberton RN - 12/19/2013 10:50 AM EDT Colonoscopy [...] you need to be checked. [facility] [phone] 8a-5p Same Day Endo [phone] 7a-8p Otherwise contact [phone] and ask to speak to the grocery department manager chief radiation therapist Follow up care is a quiroz part [...] 06/29/2024 1:40 PM EST Appointment Mammography/[place] [address] Gwen Stanford MD [address] [place] [address] 09/11/2024 10:00 AM EDT Office Visit Dermatology at [address] [address] Su Rosas MD [facility] DR [address]TON[address] [place] [address] documented as of this encounter Procedures Procedure [...] (12/19/2013 10:38 AM EDT) Final Diagnosis ? [facility] ? Provider: ?? ARTUR MONTEZ ?Pt. Name: ?? TESS LOURDES Rondon ? Acc #: ?[id number] ?Pt. ? Col Date: ?? 12/19/2013 ? [...] Diagnosis: ? Same 12/20/2013 2:11 PM EDT [facility] GI Biopsy 12/19/2013 10:3 8 AM EDT 12/19/2013 10:38 AM EDT Artur Montez MD PATHOLOGY/CYTOLOGY O JAYLIN Performing Organization Address [facility] Co de Phone Number [facility] [place] [address] * Specimen to Pathology (surgical or derm) (12/19/2013 10:38 AM EDT) AP Specimen 12/19/2013 10:3 8 AM EDT 12/19/2013 10:38 AM EDT Narrative HANY DUNN - 12/19/2013 10:38 AM EDT Specimen requisition ordered. ??Separate Pathology report to follow Artur Montez MD PATHOLOGY/CYTOLOGY Gilda MOSQUEDA Performing Organization Address [facility] Co de Phone Number HANY DUNN * COLONOSCOPY (12/19/2013 9:39 AM EDT) COLONOSCOPY [facility] Endoscopy Patient Name: Lourdes Castro ? Procedure Date: 12/19/2013 9:39 AM ? N: [id number] ? Date of : 1955 ? Age: 58 ? Order #: [id number] ? Procedure: ? Colonoscopy Indications: ? Screening for colorectal malignant ? neoplasm Providers: ? Artur Mnotez MD, Janette Ortiz ? MARY Carrasco, Debora Dietrich, ? Band Teacher Referring MD: ?Gwen Stanford MD Medicines: ? [...] MAR Action Action Date Dose Rate Site lactated ringers infusion 100 mL/hr, Intravenous, CONTINUOUS, Starting on Wed12/19/13 at 0945, Until Wed12/19/13 at 1205, Endoscopy (Day of Procedure) New Bag 12/19/2013 9:25 AM EDT 100 mL/hr 100 mL/hr documented in this encounter Active and Recently [...] RN) documented in this encounter Care Teams Military Technology Specialist Relationship Specialty Start Date End Date Gwen Stanford MD [address] [place] [address] PCP - General 04/15/10 documented as of this encounter
--- OUTSIDE RECORDS SUMMARY | 2024-05-19 00:36 | XMS_ITS | Encounter Summary ---
[place] [address] Care Team Providers Care Agency Manager Name Role Phone Gwen Stanford MD Primary Care Provider [phone] Encounter Details Date Type Department Care Team (Late st Contact Info) Description 10/07/2012 11:09 AM EDT - 10/07/2012 11:59 PM EDT Hospital [place] [phone] CLINIC, Gwen Calix MD [address] [place] [address] [address] [place], [place] [phone] Discharge Disposition: Home Social History Tobacco Use [...] daily 07/14/2006 10/19/2012 norethindrone-ethinyl estradiol (LOESTRIN FE ,) 1-20 mg-mcg per tablet 1 Tablet(s), PO, Once daily 01/12/2006 10/19/2012 loratadine (CLARITIN) 10 mg tablet 10MG = 1 Tablet(s), PO, Once daily 01/12/2006 10/19/2012 documented as of this encounter Plan of Treatment Upcoming Encounters Date Type Department Care Team (Late st Contact Info) Description 06/29/2024 1:40 PM EST Appointment Mammography/[place] [address] Gwen Stanford MD [address] [place] [address] 09/11/2024 10:00 AM EDT Office Visit Dermatology at [facility] [address] [place] [address] Su Rosas MD [facility] [address] [place] [address] documented as of this encounter Procedures Procedure Name Priority Date/Time Associated Diagnosis Comments MAMMO SCREENING CAD BILATERAL Routine 10/07/2012 11:29 AM EDT documented in this encounter Results * Mammo digital bilateral Screening with CAD (10/07/2012 11:29 AM EDT) Anatomical Region Laterality Modality Breast Bilateral Mammography 10/07/2012 11:2 9 AM EDT Narrative 10/10/2012 9:05 AM EDT Reason for Exam: Screening Technique: Craniocaudal (CC) and Medio-lateral Oblique (MLO) views of both breasts obtained with direct digital capture. In addition to the routine 2D imaging this exam was also performed with 3D tomographic imaging in MLO and CC projections. The exam was evaluated by CAD version 8.3.17. Findings: This is a negative mammogram (ACR Category 1). ??There is a stable fibroglandular pattern without significant change from prior studies. There is no mammographic evidence of cancer. ??The breasts are heterogeneously dense which limits mammographic sensitivity for the detection of malignancy. CONCLUSION: This is a NEGATIVE mammogram (ACR Category 1). ?? Routine screening mammography is recommended with the frequency dependent upon the patient's age and breast cancer risk factors. A letter has been sent to this patient by the breast imaging center. Procedure Note Celine Flores MD - 10/10/2012 Reason for Exam: Screening Technique: Craniocaudal (CC) and Medio-lateral Oblique (MLO) views of both breasts obtained with direct digital capture. In addition to the [id number] imaging this exam was also performed with 3D tomographic imaging in MLOand CC projections. The exam was evaluated by CAD version [...] is recommended with the frequency dependentupon the patient's age and breast cancer risk factors. A letter has been sent to this patient by the breast imaging center. Gwen Stanford MD IMG MAMMO ORDERABLES documented in this encounter Visit Diagnoses Not on filedocumented in this encounter Care Teams Agency Manager Relationship Specialty Start Date End Date Gwen Stanford MD [address] [place] [address] PCP - General 04/15/10 documented as of this encounter
--- OUTSIDE RECORDS SUMMARY | 2024-05-19 00:36 | XMS_ITS | Encounter Summary ---
[place] [address] Care Team Providers Care Piano Assembler Name Role Phone Gwen Stanford MD Primary Care Provider Reason for Visit * Reason Comments Establish Care * Consultation (Routine) - Closed Specialty Diagnoses / Procedures Referred By Letitia t Referred To Contact Gynecology Oncology Diagnoses Post-menopausal bleeding DUB,ABN ULTRASOUND, PENDING BIOPSY Procedures CONSULT Vesna Carreno MD [address] [place] [address] [facility] Tourist Information Assistant [address] [place] [phone] Referral ID Status Reason Start Date Expiration Date Visits Re quested Visits Authorized [id number] Closed 03/27/2016 03/27/2017 1 1 Encounter Details Date Type Department Care Team (Late st Contact Info) Description 04/23/2016 10:30 AM EST Office Visit Gyne[place] [address] Naye Monzon MD Abnormal uterine bleeding (AUB); Uterine mass; Postmenopausal HRT (hormone replacement therapy) Social History Tobacco Use Types Packs/Day Years [...] Sign Reading Time Taken Comments Blood Pressure 121/75 04/23/2016 10:51 AM EST Pulse 65 04/23/2016 10:51 AM EST Temperature 36.8 ??C (98.2 ??F) 04/23/2016 10:[address] Respiratory Rate 18 04/23/2016 10:51 AM EST Oxygen Saturation 99% 04/23/2016 10:51 AM EST Inhaled Oxygen Concentration - - Weight 60 kg (132 lb 4.4 oz) 04/23/2016 10:51 AM EST Height 155.3 cm (5' 1.14) 04/23/2016 10:[address] Body Mass Index 24.88 04/23/2016 10:51 AM EST documented in this encounter Progress Notes * Naye Monzon MD - 04/23/2016 10:30 AM EST Images from the original note were not included. Division of Gynecologic Oncology Jen Paredes MD [facility] Naye Monzon MD [facility] [place] [address] MD Pati Eduardo, [facility] New Outpatient Visit: Reason for visit: Lourdes Castro is being seen in the clinic today at the request of Riri Rizzo Md [address] [place] [address] for the evaluation of an uterine mass. I have reviewed the available records, interviewed and examined the patient. History of Present Illness: Lourdes Castro is a 61 y.o. female referred for evaluation of abnormal uterine bleeding and uterine enlargement and new uterine masses postmenopausally. Lourdes is a 61-year-old female who developed postmenopausal bleeding and an enlarging uterus while onPrempro 0.625/2.5 to control her menopausal symptoms. This was prescribed by her primary care physician. She is not sure how long she has been on this medication but reports that she started it for concerns after menopause which consisted of multiple achey joints and which per her resolved shortly after starting HRT. She has been on it ever since. Review of her medical record here for thumb pain shows use of estrogen in 2012.The patient saw Dr. Carreno recently for 2 separate episodes of postmenopausal bleeding. She did have an endometrial biopsy done which revealed benign inactive endometrium without cytologic atypia and abundant blood clot. The majority of the biopsy was blood with note of rare endometrial tissue present for evaluation. Per the records, the patient had a pelvic ultrasoundin 2012 also for abnormal bleeding at the age of 58 which showed a 7.4 x 5.1 x 5.8 cm uterus and 2.4 and 2.3 cm fibroids. Her endometrial stripe at that point was 3.2 mm. She very appropriately had another ultrasound performed in February 2016 due to this recent bleeding which showed enlargement of her uterus to10 x 5.1 x 5.3 cm with now concern for 4 different fibroids measuring 1.7 cm, 2.0 cm, 1.9 cm and 1.7 cm with one noted to be abutting the endometrial stripe with calcifications. In fact the stripe was distorted but could be measured at 4.2 millimeters in one region. She was menopausal by FSH in 2009. Her ovaries were noted to be small and atrophic on both ultrasounds. She is very appropriately sent here due to concerns of an enlarging uterus postmenopausally as well as possible development of new myometrial lesions in the postmenopausal setting. According to the patient she is quite alarmed to hear that there could be any concern for malignancy. She notes that she has had a few episodes of postmenopausal bleeding in the past and biopsies have never shown malignancy. She has been weaning off of Prempro at the suggestion of Dr. Carreno. Her only symptom that she has noticed is a feeling like I'm getting a period. She also endorses an occasional hot flash but does not think that her joint pain has returned. Review of Systems: Review of Systems Medical History: Past Medical History Diagnosis Date ??? Abnormal uterine bleeding (AUB) 04/23/2016 ??? Depression ??? Former smoker 04/23/2016 ??? Postmenopausal HRT (hormone replacement therapy) 04/23/2016 ??? Tendinitis ??? Uterine mass 04/23/2016 Surgical History: Past Surgical History Procedure Laterality Date ??? Pro colonoscopy, mark carlos, snare 12/19/2013 COLONOSCOPY, POLYPECTOMY, REMOVAL LESION BY SNARE performed by Artur Treviño MD at [facility] ENDOSCOPY ??? Tonsillectomy Medications: Current Outpatient Prescriptions Medication Sig Dispense Refill ??? glucosamine sulfate 500 mg Tablet Take by mouth. ??? calcium carbonate 648 mg calcium Tablet Take 600 mg by mouth 3 times daily (with meals). ??? cholecalciferol, Vitamin D3, (CHOLECALCIFEROL, VITAMIN D3,) 2,000 unit Capsule Take by mouth. ??? biotin 300 mcg Tablet Take 500 mcg by mouth. ??? estrogen, conjugated,-medroxyprogesterone (PREMPRO) 0.45-1.5 mg per tablet Take 1 tablet by mouth daily. ??? clonAZEpam (KLONOPIN) 1 mg tablet 1MG = 1 Tablet(s), PO, Once daily,PRN No current facility-administered medications for this visit. Allergies: Allergies Allergen Reactions ??? Codeine Anxiety ??? Penicillins Anaphylaxis Obstetric History: . x 2. Gynecologic History/Health Maintenance: She does not recall when menopause was as she states that she was premenopausal for 20 years and atsome point was on oral contraceptives and then went onto hormone replacement therapy for polyarthritis. Is on HRT use and has used for years, perhaps since 2009 or 2012, she is not sure. Recent postmenopausal bleeding/spotting. Has had regular Pap smear screening and per the records had an ASCUS Pap on 03/24/2013 and was HPV positive in 2011. On 04/23/2014 she had a Pap that was normal and HPV negative. Mammograms are up to date with last 2014. Last colonoscopy = 2013. Family History: unknown as the patient is adopted Social History: reports that she quit smoking about 20 years ago. Her smoking use included Cigarettes. She quit after 20.00 years of use. She has never used smokeless tobacco. She reports that she drinks about 4.2 oz of alcohol per week She is . 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 She is very physically active. Physical Exam: Vitals: 04/23/16 1051 BP: 121/75 Patient Position: Sitting Pulse: 65 Resp: 18 Temp: 36.8 ??C (98.2 ??F) TempSrc: Oral SpO2: 99% Weight: 60 kg (132 lb 4.4 oz) Height: 155.3 cm (5' 1.14) Body mass index is 24.88 kg/(m^2). Body surface area is 1.61 meters squared. Physical Exam not done today, as the entirety of the visit and an additional hour were spent in counseling GOG Performance Status: 0 Pertinent Radiographic/Diagnostic Results: no images were provided were provided for today's visit Impression/Plan: Lourdes Castro is a 61 y.o. with ultrasound findings from an outside institution revealing overall enlargement of the uterine size as well as possible development of two new intrauterine masses in the setting of postmenopausal combination hormone replacement therapy and postmenopausal bleeding. I explained to Lourdes and her that most intrauterine masses are due to benign fibroids (leiomyomas)but that typically these are a pre-menopausal phenomenon and that development of intrauterine masses which are new postmenopausally raises some concern for leiomyosarcoma, a very rare, but dangerous uterine malignancy. These are rare, 3-7/100,000 women with an average age of 60. The rate of sarcomain women with a symptomatic uterine mass (typically abnormal bleeding) is higher, ranging from 1 in352 2 to 1 in 1999 depending on the study. They typically present with postmenopausal bleeding. I explained that while the odds are very low that she has a leiomyosarcoma, unfortunately, the clinicalfeatures of benign leiomyomas and uterine sarcomas are often indistinguishable. Her case is complicated by postmenopausal HRT use for several years. It is well established that benign leiomyomas are responsive to gonadal steroids (estrogen and progesterone) and develop primarilyin women of reproductive age, with symptoms developing on average as early as the 20s in black women and typically in the 30s or 40s in white women. Leiomyomas typically stabilize or diminish in sizefollowing menopause. Postmenopausal estrogen therapy may be associated with modest growth of myomasand/or persistent symptoms but does not appear to induce the development of new leiomyomas as has been suggested by her US. Increasing age is a significant risk factor for uterine sarcomas. The average age at diagnosis is 60 years; thus, the majority of sarcomas occur after menopause. Because leiomyomas are stimulated by estrogen and progesterone, postmenopausal women who have a uterine mass thatis new or is growing at either a slow or rapid pace should be evaluated for malignancy. The level of suspicion for uterine sarcoma is lower in women who are on postmenopausal estrogen therapy and have a small increase in the size of a presumed fibroid known to have been present prior to menopause. I further explained that uterine sarcoma is a histologic diagnosis based upon pathology evaluation after resection of uterine tissue (myomectomy or hysterectomy). Uterine sarcomas are most commonly diagnosed following surgery for presumed leiomyomas. Preoperative and intraoperative findings are of limited value in estimating the likelihood that a mass is a uterine sarcoma. Occasionally uterine sarcomas can be diagnosed on endometrial sampling, however a negative endometrial biopsy does not reliably rule out an uterine sarcoma though it is quite reliable for ruling out endometrial malignancy. The advantage of hysterectomy is that it prevents the formation of new fibroids and also can treat concomitant problems such as adenomyosis, endometriosis, and cervical neoplasia of which she has a history. The disadvantages are loss of fertility, risk of surgical complications, the time needed forrecovery, and risk of long-term morbidity and earlier menopause, especially if the ovaries are removed at the time of hysterectomy. This visit lasted from 11:30 AM until 1 PM with all of that time spent in direct nuyd-le-pwlm counseling about the patient's condition. The patient and especially her had very appropriate questions all of which were answered in turn. The patient was quite upset to learn about the possibility of malignancy (though very low) and about the discussion of surgery in light of the upcoming holiday and plans to change insurance after May 24. We discussed options including a robotichysterectomy for definitive diagnosis versus conservative management with repeat ultrasound in 3 months after cessation of Prempro. The patient voiced mistrust about her prior ultrasound results and was unclear of how she wished to proceed and recommendations for a second opinion with another gynecologic oncologist were also discussed. Ultimately, the patient and her left the office planning to discuss her options further and let me know what they had decided. They were given my contactinformation. In the meantime, I will plan to obtain her outside ultrasound images for further review. Additional notes from Dr. Stanford's office were obtained and reviewed during today's visit. Thank you for referring this eliana patient to [facility] for her cancer care. I will keep you apprised of her progress. NAYE MONZON MD documented in this encounter Plan of Treatment Upcoming Encounters Date Type Department Care Team (Late st Contact Info) Description 06/29/2024 1:40 PM EST Appointment Mammography/[place] [address] Gwen Stanford MD [address] [place] [address] 09/11/2024 10:00 AM EDT Office Visit Dermatology at [address] [place] [id number] Su Rosas MD [facility] [address]TON[address] [place] [address] documented as of this encounter Visit Diagnoses Diagnosis Abnormal uterine bleeding (AUB) Uterine mass Other specified symptom associated with female genital organs Postmenopausal HRT (hormone replacement therapy) Need for prophylactic hormone replacement therapy (postmenopausal) documented in this encounter Care Teams Piano Assembler Relationship Specialty Start Date End Date Gwen Stanford MD [address] [place] [address] PCP - General 04/15/10 documented as of this encounter
--- OUTSIDE RECORDS SUMMARY | 2024-05-19 00:36 | XMS_ITS | Encounter Summary ---
Author Organization [facility] Address [address] [place] [address] Care Team Providers Care Adzing And Boring Machine Operator Name Role Phone Gwen Stanford MD Primary Care Provider [phone] Reason for Visit * Reason Onset Date Comments Other 03/31/2018 Encounter Details Date Type Department Care Team (Late st Contact Info) Description 03/31/2018 Telephone [facility] Pelvic Medicine and Reconstructive Surgery - Medical Office [facility] [address] [place] [address] Janette Frank, RN Other Social History Tobacco Use Types Packs/Day [...] Telephone Encounter - Janette Frank RN - 03/31/2018 1107 EST Pt was fit with a gellhorn pessary on 03/29. She is very uncomfortable with urinary incontinence andthe pessary keeps slipping down. Advised that pt remove the pessary herself, as she is 2 hours away. Advised to bear down and slip finger under the disc to relieve the suction and then gently pull out. She will try this at home and if unable to do will call our office. Pt will make a decision aboutwhether or not she wants to come in for another pessary fitting or not. She reports that she is nota surgical candidate as she cannot comply with the weight lifting restrictions post op. documented in this encounter Plan of Treatment Not on file documented as of this encounter Visit Diagnoses Not on filedocumented in this encounter Care Teams Adzing And Boring Machine Operator Relationship Specialty Start Date End Date Gwen Stanford MD [address] [place] [id number] PCP - General 08/11/11 documented as of this encounter
--- OUTSIDE RECORDS SUMMARY | 2024-05-19 00:37 | XMS_ITS | Encounter Summary ---
Author Organization [facility] Address [address] [place] [address] Care Team Providers Care Tire Room Supervisor Name Role Phone Unavailable Primary Care Provider Unavailabl e Encounter Details Date Type Department Care Team (Late st Contact Info) Description 01/17/2008 Before PRISM Converted Visit (Maple) [facility] - Maple conversion [address] [place] [address] Gwen Stanford MD [address] [place] [address] [address] [place] [address] Social History Tobacco Use Types [...] Procedure Name Priority Date/Time Associated Diagnosis Comments HPV DETECTION, HIGH RISK TYPES Routine 01/17/2008 8:20 EDT CYTOPATHOLOGY Routine 01/17/2008 0:00 EDT documented in this encounter Results * HUMAN PAPILLOMA VIRUS DNA TEST (01/17/2008 8:20 EDT) Specimen Description Cervix, ThinPrep vial [facility] Result Positive for one or more of HPV types 16,18,31,33,35 ,39,45,51,52,5 6,58,59, or 68. These high/intermedi ate risk HPV types are associated with dysplasia and some cervical cancers. [facility] Report Status Final [id number] [facility] 01/17/2008 8:20 EDT 01/25/2008 8:20 EDT us Gwen Stanford MD MICROBIOLOGY - GENERAL MUKUND DAMON Final Result [facility] [address] [place] [address] * CYTOPATHOLOGY (01/17/2008 0:00 EDT) Pathology Report: CYTOPATHOLOGY REPORT ? Reports generated via electronic interface contain original data; ? however they are lacking the format of the original report. ? Caution should be taken when reading/interpreti ng unformatted reports. ? Name: ? LOURDES CASTRO ? Accession #: ? [id number] ? : ? 1955 (Age: 52) ??F ?Collect Date: ? 01/17/2008 ? Location: ? [facility] ? Receive Date: ? 01/18/2008 ? Provider: ?GWEN M DOBBERTIN MD ? Copy to: ? Specimen/Source: ?ThinPrep Pap Test, Endocervix, processed on Cytyc ? ThinPrep Imaging System, with manual evaluation ? Last Menstrual Period: ? 8/24/08 ? Hormonal/Contracep tive Status: ? Yes ? Other: ? HPVDX - HPV testing requested regardless of diagnosis on current ThinPrep Pap ?? test. ? SPECIMEN ADEQUACY ? Satisfactory for Evaluation ? - transformation zone component absent ? GENERAL CATEGORIZATION ? Negative for Intraepithelial Lesion or Malignancy ? Document reviewed and electronically signed by: ? Debora Haskins, SCT(ASCP) ? Report Date: ??01/24/2008 13:01 ? End of Report ? [facility] 01/17/2008 01/18/2008 us Gwen Stanford MD PATHOLOGY ORDERABLES Final Result Performing Organization Address City/State/[facility] Co de Phone Number [facility] [address] [place] [address] documented in this encounter Visit Diagnoses Not on filedocumented in this encounter
--- OUTSIDE RECORDS SUMMARY | 2024-05-19 00:37 | XMS_ITS | Encounter Summary ---
Author Organization [facility] Address [address] [place] [address] Care Team Providers Care Dope House Operator Helper Name Role Phone Unavailable Primary Care Provider Unavailabl e Encounter Details Date Type Department Care Team (Late st Contact Info) Description 11/05/[address] [facility] - Maple conversion [address] [place] [address] Precious Aleman, SHANTE Social History Tobacco Use Types Packs/Day Years [...] Priority Date/Time Associated Diagnosis Comments CYTOPATHOLOGY Routine 11/05/1999 0:00 EDT documented in this encounter Results * CYTOPATHOLOGY (11/05/1999 0:00 EDT) Pathology Report: CYTOPATHOLOGY REPORT Reports generated via electronic interface contain original data; however they are lacking the format of the original report. Caution should be taken when reading/interpreti ng unformatted reports. Name: ? LOURDES CASTRO ? Accession #: ? [id number] : ? 1955 (Age: 44) ??F ?Collect Date: ? 11/05/1999 Location: ? [facility] ? Receive Date: ? 11/06/1999 Provider: ?PRECIOUS ALEMAN VOCATIONAL REHABILITATION CONSULTANT Copy to: ? Specimen/Source: ?ThinPrep Pap Test, Cervix/Endocervix Last Menstrual Period: ? 10/29/99 Previous Gynecologic Pathology: ? Benign cellular changes: Reactive cellular changes associated with inflammation. Other: ? Additional clinical information: WNL. ? SPECIMEN ADEQUACY ? Satisfactory for evaluation. GENERAL CATEGORIZATION ? Within Normal Limits ? Document reviewed and electronically signed by: ? Juanjose Carlson, JESSICA(ASCP) ? Report Date: ??11/06/1999 15:08 End of Report [facility] 11/05/1999 11/06/1999 us Precious Aleman NP PATHOLOGY ORDERABLES Final Re sult [facility] [address] [place] [address] documented in this encounter Visit Diagnoses Not on filedocumented in this encounter
--- OUTSIDE RECORDS SUMMARY | 2024-05-19 00:37 | XMS_ITS | Encounter Summary ---
Author Organization [facility] Address [address] [place] [address] Care Team Providers Care Senior Mechanical Engineer Name Role Phone Unavailable Primary Care Provider Unavailabl e Encounter Details Date Type Department Care Team (Late st Contact Info) Description 06/12/1999 Results Only [facility] - Maple conversion [address] [place] [address] Precious Aleman, SHANTE Social History Tobacco Use [...] Priority Date/Time Associated Diagnosis Comments CYTOPATHOLOGY Routine 06/12/1999 11:33 EST documented in this encounter Results * CYTOPATHOLOGY (06/12/1999 11:33 EST) Pathology Report: CYTOPATHOLOGY REPORT Reports generated via electronic interface contain original data; however they are lacking the format of the original report. Caution should be taken when reading/interpreti ng unformatted reports. Name: ? LOURDES CASTRO ? Accession #: ? [id number] : ? 1955 (Age: 44) ??F ?Collect Date: ? 06/12/1999 Location: ?Receive Date: ? 06/12/1999 Provider: ?PRECIOUS ALEMAN NP Copy to: ?PRECIOUS ALEMAN NP ? Specimen/Source: ?Coal Passer ThinPrep Last Menstrual Period: ? GYNECOLOGIC ??CYTOPATHOLOGY ??REPORT Name: LOURDES CASTRO ? [facility] : 1955 ?? 44Y F ?Client ID: [id number] SS#: ? Clinician: MARCELLA ALEMAN NP ?? Location: [facility] ??Copy to: ?? Specimen: ?Coal Passer ThinPrep ? Source: Cervix/Endocervix ?Collected: 06/11/99 ? Received: 06/12/1999 ?LMP: 06/01/99 ? Hormone Therapy: No ? : No ? Radiation Therapy: No ?? Post : No ?Chemotherapy: No ?IUD: No ? Prev Abnormal Pap: Yes ?? Clinical Hx: benign cellular changes. Reactive cellular ? changes associated with inflammation. ?(Blank murray indicate information not provided on requisition) SPECIMEN ADEQUACY: ? Satisfactory For Evaluation ?? GENERAL CATEGORIZATION: ? WITHIN NORMAL LIMITS ? Reviewed And Electronically Signed By: ? Derrick Garay Jr., CT(ASCP) ? Report Date: ?? 06/12/1999 [employer] Archived Tests - Final Diagnosis Text Field: Clinical History : ; benign cellular changes. Reactive cellular changes associated with inflammation. ? Document reviewed and electronically signed by: ? Conversion ? Report Date: ??06/12/1999 00:00 End of Report [facility] 06/12/1999 11:3 3 EST 06/12/1999 11:34 EST us Precious Aleman NP PATHOLOGY ORDERABLES Final Re sult [facility] [address] [place] [address] documented in this encounter Visit Diagnoses Not on filedocumented in this encounter
--- OUTSIDE RECORDS SUMMARY | 2024-05-19 00:37 | XMS_ITS | Encounter Summary ---
Author Organization [facility] Address [address] [place] [address] Care Team Providers Care Fixed Income Manager Name Role Phone Unavailable Primary Care Provider Unavailabl e Encounter Details Date Type Department Care Team (Late st Contact Info) Description 01/11/2007 Results Only [facility] - Maple conversion [address] [place] [address] Gwen Stanford MD [address] [place] [address] [address] [place] [address] Social History Tobacco Use Types [...] Priority Date/Time Associated Diagnosis Comments CYTOPATHOLOGY Routine 01/11/2007 0:00 EDT documented in this encounter Results * CYTOPATHOLOGY (01/11/2007 0:00 EDT) Pathology Report: CYTOPATHOLOGY REPORT Reports generated via electronic interface contain original data; however they are lacking the format of the original report. Caution should be taken when reading/interpreti ng unformatted reports. Name: ? LOURDES CASTRO ? Accession #: ? [id number] : ? 1955 (Age: 51) ??F ?Collect Date: ? 01/11/2007 Location: ? [facility] ? Receive Date: ? 01/12/2007 Provider: ?GWEN STANFORD MD Copy to: ? Specimen/Source: ?ThinPrep Pap Test, Endocervix, processed on [employer] ThinPrep Imaging System, with manual evaluation Last Menstrual Period: ? 01/02/07 Hormonal/Contracep tive Status: ? Yes Other: ? HPVA - HPV testing requested if ASC-US on the current ThinPrep Pap test. ? SPECIMEN ADEQUACY ? Satisfactory for Evaluation - transformation zone component present GENERAL CATEGORIZATION ? Negative for Intraepithelial Lesion or Malignancy ? Document reviewed and electronically signed by: ? JESSICA Orellana(ASCP) ? Report Date: ??01/18/2007 09:56 End of Report [facility] 01/11/2007 01/12/2007 us Gwen Stanford MD PATHOLOGY ORDERABLES Final Result [facility] [address] [place] [address] documented in this encounter Visit Diagnoses Not on filedocumented in this encounter
--- OUTSIDE RECORDS SUMMARY | 2024-05-19 00:37 | XMS_ITS | Encounter Summary ---
Author Organization [facility] Address [address] [place] [address] Care Team Providers Care Clinical Laboratory Manager Name Role Phone Unavailable Primary Care Provider Unavailabl e Encounter Details Date Type Department Care Team (Late st Contact Info) Description 04/23/2009 Orders Only [facility] Services - [facility] ([facility] [place] [address], [place] [id number] Gwen Stanford MD [address] [place] [address] [address] [place] [address] Social History Tobacco Use Types [...] Comments HPV DETECTION, HIGH RISK TYPES Routine 04/23/2009 10:05 EST CYTOPATHOLOGY Routine 04/23/2009 0:00 EST documented in this encounter Results * HUMAN PAPILLOMA VIRUS DNA TEST (04/23/2009 10:05 EST) Specimen Description Cervix, ThinPrep vial [facility] Result Positive for one or more of HPV types 16,18,31,33,35 ,39,45,51,52,5 6,58,59, or 68. These high/intermedi ate risk HPV types are associated with dysplasia and some cervical cancers. [facility] Report Status Final 04/30/2009 [facility] 04/23/2009 10:0 5 EST 04/26/2009 10:05 EST us Gwen Stanford MD MICROBIOLOGY - GENERAL AMINAHHoward DAMON Final Result [facility] [address] [place] [address] * CYTOPATHOLOGY (04/23/2009 0:00 EST) Pathology Report: CYTOPATHOLOGY REPORT ? Reports generated via electronic interface contain original data; ? however they are lacking the format of the original report. ? Caution should be taken when reading/interpreti ng unformatted reports. ? Name: ? LOURDES CASTRO ? Accession #: ? [id number] ? : ? 1955 (Age: 54) ??F ?Collect Date: ? 04/23/2009 ? Location: ? [facility] ? Receive Date: ? 04/24/2009 ? Provider: ?GWEN M DOBBERTIN MD ? Copy to: ? Specimen/Source: ?Pap Test, Endocervix, ThinPrep Imaging System with ? manual evaluation ? Last Menstrual Period: ? Abnormal Cycle ? Hormonal/Contracep tive Status: ? Yes ? Previous Gynecologic Pathology: ? HPV: 8/08 ? Other: ? HPVDX - HPV testing requested regardless of diagnosis on current ThinPrep Pap ?? test. ? SPECIMEN ADEQUACY ? Satisfactory for Evaluation ? - transformation zone component absent ? GENERAL CATEGORIZATION ? Negative for Intraepithelial Lesion or Malignancy ? Document reviewed and electronically signed by: ? Noris Romel, [place](ASCP) ? Report Date: ??04/25/2009 14:43 ? End of Report ? [facility] 04/23/2009 04/24/2009 us Gwen Stanford MD PATHOLOGY ORDERABLES Final Result [facility] [address] [place] [address] documented in this encounter Visit Diagnoses Not on filedocumented in this encounter
--- OUTSIDE RECORDS SUMMARY | 2024-05-19 00:37 | XMS_ITS | Encounter Summary ---
Author Organization [facility] Address [address] [place] [address] Care Team Providers Care [employer] Name Role Phone Unavailable Primary Care Provider Unavailabl e Encounter Details Date Type Department Care Team (Late st Contact Info) Description 11/22/2000 Results Only [facility] [address] [place] [address] Precious Aleman, SHANTE Social History Tobacco Use [...] Priority Date/Time Associated Diagnosis Comments CYTOPATHOLOGY Routine 11/22/2000 0:00 EDT documented in this encounter Results * CYTOPATHOLOGY (11/22/2000 0:00 EDT) Pathology Report: CYTOPATHOLOGY REPORT Reports generated via electronic interface contain original data; however they are lacking the format of the original report. Caution should be taken when reading/interpreti ng unformatted reports. Name: ? LOURDES CASTRO ? Accession #: ? [id number] : ? 1955 (Age: 45) ??F ?Collect Date: ? 11/22/2000 Location: ? [facility] ? Receive Date: ? 11/25/2000 Provider: ?PRECIOUS ALEMAN STATE TESTED NURSING ASSISTANT Copy to: ? Specimen/Source: ?ThinPrep Pap Test, Cervix/Endocervix Last Menstrual Period: ? 10/31/00 Hormonal/Contracep tive Status: ? Progesterone: Cream Previous Gynecologic Pathology: ? Benign cellular changes: , 11/05/99 WNL ? SPECIMEN ADEQUACY ? Satisfactory for evaluation. GENERAL CATEGORIZATION ? Within Normal Limits ? Document reviewed and electronically signed by: ? Siobhan Gilliam, ??CT(ASCP) ? Report Date: ??11/29/2000 12:04 End of Report [facility] 11/22/2000 11/25/2000 us Precious Aleman NP PATHOLOGY ORDERABLES Final Re sult [facility] [address] [place] [address] documented in this encounter Visit Diagnoses Not on filedocumented in this encounter
--- NOTE | 2024-05-19 09:52 | DI.RAD_ITS ---
Exam(s) XR ELBOW RT COMPLETE EXAM: XR ELBOW RT COMPLETE CLINICAL HISTORY: fell, now painful, W19.XXXA. TECHNIQUE: 2D digital imaging was performed. Three views. COMPARISON: No exams were available for comparison FINDINGS: BONES: No acute fracture is present. No bony destructive lesion is seen. JOINTS: The elbow is normally aligned. No joint effusion is seen. No significant degenerative change s. SOFT TISSUE: Normal. IMPRESSION: Unremarkable radiographs of the right elbow. DATA REPOSITORY: RADIATION DOSE DELIVERED:
== END 2024-05-19 00:53 ==
LOC: DI 00:33
PROVIDERS: PCP Family Medicine; Visit Provider Family Medicine
DX: W19.XXXA Unspecified fall, initial encounter (principal); M25.521 Pain in right elbow
CPT/HCPCS: 73080

== ENCOUNTER 2024-12-01 01:01 | Outpatient (CLI) | payer MEDICARE, BC, SELFPAY ==
[2024-12-01 12:25] LABS: HCT 40.2 % (36.0-46.0); HGB 13.9 g/dL (11.2-15.7); MCH 32.0 pg (27.0-33.0); MCHC 34.6 % (32.0-36.0); MCV 93 fL (80-95); MPV 10.9 fL (8.0-11.0); Platelet Count 240 10^3/uL (130-400); RBC 4.34 10^6/uL (3.93-5.22); RDW 12.8 % (11.7-14.6); RDW-SD 43.6 fL; WBC 4.40 10^3/uL (4.4-10.8)
[2024-12-01 12:41] LABS: Iron 64 ug/dL (50-170)
[2024-12-01 12:58] LABS: ALT 23 U/L (14-59); AST 15 U/L (15-37); Albumin 3.5 g/dL (3.4-5.0); Alkaline Phosphatase 58 U/L (46-116); Anion Gap 5.4 mmol/L (3-11); BUN 19 mg/dL (7-18); Bilirubin, Total 0.5 mg/dL (0.2-1.0); CO2 31.6 mmol/L (21.0-32.0); Calcium 8.8 mg/dL (8.5-10.1); Chloride 104 mmol/L (98-107); Estimated GFR 102.73 (mL/min/1.73m2); Ferritin 64 ng/mL (8-252); Folate 11.3 ng/mL (8.6-20.0); Glucose 91 mg/dL (74-106); Potassium 4.0 mmol/L (3.5-5.1); Sodium 141 mmol/L (136-145); TSH (W/Ref FT4) 0.63 uIU/mL (0.36-3.74); Total Protein 6.9 g/dL (6.4-8.2); Vitamin B12 411 pg/mL (193-986)
== END 2024-12-01 01:02 | disposition home or self-care (01) ==
LOC: LOS 01:01
PROVIDERS: PCP Family Medicine; Visit Provider Family Medicine
DX: E03.9 Hypothyroidism, unspecified (principal); I10 Essential (primary) hypertension; L60.3 Nail dystrophy
CPT/HCPCS: 36415; 80053; 85027; 82607; 82728; 82746; 83540; 84443